=== PATIENT | male | born 1980 | race Caucasian/White ===

== ENCOUNTER 2016-10-24 11:49 | Emergency (ER) | payer OTHER ==
[~2016-10-24] VITALS: Ht 154.9 cm; Wt 72.6 kg
[~2016-10-24 11:49] MED LIST: CLON0.5T3 PO; HYDR-3419 PO; POTA1080 PO; QUET-205 PO
[2016-10-24 11:51] VITALS: TEMP 36.7; Ht 154.9 cm; Wt 72.6 kg
[2016-10-24] MEDS ORDERED: OXCA300T2 PO (11:54)
[2016-10-24] MEDS ORDERED: CGN1 PO (11:54)
[2016-10-24] MEDS ORDERED: QUET1TAB32 PO (11:59)
[2016-10-24] MEDS ORDERED: FLUV25TA2 PO (11:59)
[2016-10-24] MEDS ORDERED: ARIP30TA3 PO (11:59)
[2016-10-24] MEDS ORDERED: CLR10 PO (11:59)
[2016-10-24] MEDS ORDERED: PANT40TA PO (12:41)
[2016-10-24 12:48] LABS: BASO % 0.1 %; BASO ABS # 0.01 K/uL (0-0.2); COMPLETE YES; EOS % 0.1 %; IG% 0.2 %; LYMPH % 13.3 %; LYMPH ABS # 1.61 K/uL (1.2-3.4); MEAN CELL VOLUME 88.7 fL (80-100); MEAN CORPUSCULAR HEMOGLOBIN 31.6 pg (25-34); MEAN CORPUSCULAR HGB CONC 35.6 g/dl (32-36); MEAN PLATELET VOLUME 9.8 fL (7.4-10.4); MONO % 6.8 %; NEUT % 79.5 %; PLATELET COUNT 160 K/uL (130-400); RED BLOOD COUNT 4.62 M/uL (4.7-6.1); WHITE BLOOD COUNT 12.13 K/uL (4.8-10.8)
[2016-10-24 12:56] LABS: BUN/CREATININE RATIO 9.5 (10-20); CALCIUM 9.8 mg/dl (8.5-10.1); CREATININE 0.84 mg/dl (0.60-1.40); POTASSIUM 4.1 mmol/L (3.5-5.1)
[2016-10-24 12:59] LABS: ALB/GLOB RATIO 1.2 (0.9-2)
[2016-10-24] MEDS ORDERED: SODIUM CHLORIDE 0.9% 500ML 500 ML IV STA (13:10)
[2016-10-24] MEDS ORDERED: AMPICILLIN/SULBACTAM SOD INJ 3,000 MG in SODIUM CHLORIDE 0.9% 100ML 100 ML IV ONE (13:15)
[2016-10-24] MEDS ORDERED: OPTIRAY 320 IV PRN (13:15)
--- NOTE | 2016-10-24 14:23 | DIAGNOSTIC IMAGING REPORT ---
CT SOFT TISSUE NECK WITH CT DOSE: 564.63 mGy.cm CLINICAL HISTORY: Right-sided facial pain and swelling. Recent wisdom tooth extraction TECHNIQUE: Helical images were acquired during intravenous administration of 93 cc of Optiray 320. COMPARISON STUDY: None. FINDINGS: The visualized portions of the lung apices are unremarkable. No thyroid masses are visualized. No salivary gland masses are visualized. There are no pathologically enlarged cervical lymph nodes. No necrotic nodes are evident. There is a 2.5 cm fluid collection within the soft tissues lateral to the right maxilla. There is infiltration of the surrounding soft tissues and fat. There is an overlying cutaneous edema. The findings are consistent with an abscess. There is partial opacification of the right maxillary sinus. There is a defect within the posterior lateral wall of the right maxillary sinus. There is a radiopaque density within the right maxillary sinus, possibly representing a bone fragment. Several empty tooth sockets are visualized. There is no evidence of airway compromise. No mucosal space masses are visualized. IMPRESSION: 1. Extensive inflammatory process within the soft tissues lateral to the right maxilla. There is a 2.5 cm abscess present. In addition, there is partial opacification the right maxillary sinus. There is a bone fragment within the right maxillary sinus, and there is a defect involving the posterior lateral wall the right maxillary sinus. Oral surgical consultation is recommended. 2. No evidence of airway compromise. Electronically signed by: Papito Herrera M.D. 10/24/2016 2:21 PM Dictated Date/Time: 10/24/2016 2:10 PM
[2016-10-24] MEDS ORDERED: AMOX875T PO (15:39)
--- NOTE | 2016-10-24 15:40 | EMERGENCY ROOM VISIT NOTE ---
History First contact with patient: 13:00 Chief Complaint: FACIAL PAIN/INJURY Stated Complaint: SWOLLEN FACE, POSSIBLE ABSCESS History of Present Illness The patient is a 36 year old male who presents to the Emergency Department by private vehicle with his family and second worker for evaluation of his RIGHT-sided facial pain and swelling. The patient had his 4 with the teeth extracted on September [address] [place] [address] Robles. He had a follow-up appointment on October 06. He is had no complications since. He was having no issues until awaking this morning with RIGHT-sided facial swelling. He was brought to the emergency Department for further evaluation and treatment. The patient denies any pain rating his discomfort a 0/10. There is been no fevers, chills, headaches, nausea, or vomiting. He is not a diabetic. He is been provided nothing for his pain to this point. Review of Systems A complete 10-point Review of Systems was discussed with the patient, with pertinent positives and negatives listed in the History of Present Illness. All remaining Review of Systems questions can be considered negative unless otherwise specified. Past Medical/Surgical History Medical Problems: (1) ANXIETY STATE NOS (2) DEPRESSIVE DISORDER NEC (3) Gastroesophageal reflux disease (4) Kidney stone (5) OPPOSITIONAL DEFIANT DISORDER (6) Schizophrenia Social History Smoking Status: Never Smoker Smokeless Tobacco Use: No Alcohol Use: none Drug Use: none Marital Status: single Housing Status: other Occupation Status: disabled Current/Historical Medications Scheduled Amoxicillin & Pot Clavulanate (Augmentin 875-125 mg), 875 MG PO BID Aripiprazole (Abilify), 30 MG PO HS Benztropine Mesylate (Cogentin), 1 MG PO BID Fluvoxamine Maleate (Luvox), 25 MG PO HS Oxcarbazepine (Trileptal), 600 MG PO TID Pantoprazole (Protonix), 40 MG PO DAILY Quetiapine Fumarate (Seroquel), 50 MG PO HS Scheduled PRN Loratadine (Claritin), 10 MG PO DAILY PRN for ALLERGIC REACTION Allergies Coded Allergies: No Known Allergies (Unverified , 10/24/16) Physical Exam Vital Signs Date Time Temp Pulse Resp B/P Pulse Ox O2 Delivery O2 Flow Rate FiO2 10/24/16 15:59 101 18 133/87 96 Room Air 10/24/16 11:51 36.7 108 18 132/82 96 Room Air Pain Rating (0-10): 0 Physical Exam VITAL SIGNS - Vital signs and nursing notes were reviewed. GENERAL - 36-year-old male appearing his stated age who is in no acute distress. Communicates well with provider and answers questions appropriately. HEAD - Normocephalic, Atraumatic. No Walker's Sign or Raccoon's Eyes. No depressed skull fractures palpable. EYES - PERRL with EOMI bilaterally. EARS - No deformities of external structures noted on gross examination bilaterally. No pain elicited with palpation of the tragus bilaterally. External auditory canals without discharge or otorrhea. Tympanic membranes pearly mandujano without retraction or bulging. No fluid or purulent material visualized behind the TM. NOSE - Midline and without cyanosis. No epistaxis or purulent drainage noted. Septum midline without deviation or septal hematoma noted. MOUTH/OROPHARYNX - Moderate RIGHT sided facial swelling. Moderately tender to palpation. No erythema or warmth to touch. No fluctuance to palpation. Without perioral cyanosis. Buccal mucosa pink and moist and without leukoplakia. Tongue midline with equal elevation of palate bilaterally. No tonsillar hypertrophy, erythema, or exudates noted. No dental caries. No sublingual edema. NECK - Neck with FROM. Supple to palpation. No lymphadenopathy noted. No nuchal rigidity. Medical Decision & Procedures ER Provider Diagnostic Interpretation: Radiological imaging and reports were reviewed by myself. Radiologist's Interpretation as follows: CT SOFT TISSUE NECK WITH CT DOSE: 564.63 mGy.cm CLINICAL HISTORY: Right-sided facial pain and swelling. Recent wisdom tooth extraction TECHNIQUE: Helical images were acquired during intravenous administration of 93 cc of Optiray 320. COMPARISON STUDY: None. FINDINGS: The visualized portions of the lung apices are unremarkable. No thyroid masses are visualized. No salivary gland masses are visualized. There are no pathologically enlarged cervical lymph nodes. No necrotic nodes are evident. There is a 2.5 cm fluid collection within the soft tissues lateral to the right maxilla. There is infiltration of the surrounding soft tissues and fat. There is an overlying cutaneous edema. The findings are consistent with an abscess. There is partial opacification of the right maxillary sinus. There is a defect within the posterior lateral wall of the right maxillary sinus. There is a radiopaque density within the right maxillary sinus, possibly representing a bone fragment. Several empty tooth sockets are visualized. There is no evidence of airway compromise. No mucosal space masses are visualized. IMPRESSION: 1. Extensive inflammatory process within the soft tissues lateral to the right maxilla. There is a 2.5 cm abscess present. In addition, there is partial opacification the right maxillary sinus. There is a bone fragment within the right maxillary sinus, and there is a defect involving the posterior lateral wall the right maxillary sinus. Oral surgical consultation is recommended. 2. No evidence of airway compromise. Laboratory Results 10/24/16 12:30 Red Blood Count 4.62, Mean Corpuscular Volume 88.7, Mean Corpuscular Hemoglobin 31.6, Mean Corpuscular Hemoglobin Concent 35.6, Mean Platelet Volume 9.8, Neutrophils (%) (Auto) 79.5, Lymphocytes (%) (Auto) 13.3, Monocytes (%) (Auto) 6.8, Eosinophils (%) (Auto) 0.1, Basophils (%) (Auto) 0.1, Neutrophils # (Auto) 9.66, Lymphocytes # (Auto) 1.61, Monocytes # (Auto) 0.82, Eosinophils # (Auto) 0.01, Basophils # (Auto) 0.01 10/24/16 12:30 Test 10/24/16 12:30 White Blood Count 12.13 K/uL (4.8-10.8) Red Blood Count 4.62 M/uL (4.7-6.1) Hemoglobin 14.6 g/dL (14.0-18.0) Hematocrit 41.0 % (42-52) Mean Corpuscular Volume 88.7 fL (80-100) Mean Corpuscular Hemoglobin 31.6 pg (25-34) Mean Corpuscular Hemoglobin Concent 35.6 g/dl (32-36) Platelet Count 160 K/uL (130-400) Mean Platelet Volume 9.8 fL (7.4-10.4) Neutrophils (%) (Auto) 79.5 % Lymphocytes (%) (Auto) 13.3 % Monocytes (%) (Auto) 6.8 % Eosinophils (%) (Auto) 0.1 % Basophils (%) (Auto) 0.1 % Neutrophils # (Auto) 9.66 K/uL (1.4-6.5) Lymphocytes # (Auto) 1.61 K/uL (1.2-3.4) Monocytes # (Auto) 0.82 K/uL (0.11-0.59) Eosinophils # (Auto) 0.01 K/uL (0-0.5) Basophils # (Auto) 0.01 K/uL (0-0.2) RDW Standard Deviation 39.1 fL (36.4-46.3) RDW Coefficient of Variation 12.2 % (11.5-14.5) Immature Granulocyte % (Auto) 0.2 % Immature Granulocyte # (Auto) 0.02 K/uL (0.00-0.02) Anion Gap 10.0 mmol/L (3-11) Est Creatinine Clear Calc Drug Dose 105.9 ml/min Estimated GFR () 132.4 Estimated GFR (Non- 114.2 BUN/Creatinine Ratio 9.5 (10-20) Calcium Level 9.8 mg/dl (8.5-10.1) Total Bilirubin 0.5 mg/dl (0.2-1) Aspartate Amino Transf (AST/SGOT) 19 U/L (15-37) Alanine Aminotransferase (ALT/SGPT) 36 U/L (12-78) Alkaline Phosphatase 143 U/L (45-117) Total Protein 7.9 gm/dl (6.4-8.2) Albumin 4.3 gm/dl (3.4-5.0) Globulin 3.6 gm/dl (2.5-4.0) Albumin/Globulin Ratio 1.2 (0.9-2) Medications Administered Medications (Trade) Dose Ordered Sig/Nataliya Route Start Time Stop Time Status Last Admin Dose Admin Ampicillin Sodium/ Sulbactam Sodium 3000 mg/Sodium Chloride 108 ml @ 200 mls/hr ONE ONCE IV 10/24/16 13:15 10/24/16 13:47 DC 10/24/16 13:46 200 MLS/HR Sodium Chloride (Nss 500ml) 500 ml @ 999 mls/hr Q31M STAT IV 10/24/16 13:10 10/24/16 13:40 DC 10/24/16 13:45 999 MLS/HR ED Course Patient was seen and evaluated by myself. Labs were drawn, saline lock in place. Patient declines anything for pain. Laboratory results demonstrated mild leukocytosis. There is no significant anemia or bandemia. The patient has no significant electrolyte abnormalities. CT of the soft tissues of the neck was obtained for evaluation of the facial swelling. Patient was treated with 3 g of IV Unasyn and a 500 mL normal saline bolus. Imaging results as above. Laboratory results and imaging studies were reviewed with the patient who acknowledges understanding. I did discuss the case with Dr. Alanis of maxillofacial surgery. He suggests continuing the antibiotics aggressively and following up with the patient's oral surgeon this week. This information was relayed to the family and patient's care provider who acknowledges understanding. They're educated on worrisome symptoms for return visit to the emergency department. Patient discharged home afebrile and in good condition. Medical Decision Given the patient's presentation and stated complaints, I did elect to perform the above-mentioned workup. The patient presents today with facial swelling to the RIGHT-sided face. He has palpable pain. He has no fever. He has mild psychosis. CT concerning for facial abscess which is obvious on physical exam. He does have some disruption of the sinuses which is consistent with his recent dental extraction. He is no meningeal findings. His exam is otherwise unremarkable. He is not an overt amount of pain. The patient will be placed on Augmentin for home. He will follow-up with his oral surgeon. He will return sooner for any changing or worsening symptoms. Patient discharged home afebrile and in good condition. In the evaluation and treatment of this patient, the following differential diagnoses were considered: Periapical Abscess, Osteonecrosis of the Jaw, Dental Fracture, Dental Caries, Carlos Alberto's Angina, Vincent's Angina, Facial Cellulitis. Impression Primary Impression: Facial abscess Departure Information Dispostion Home / Self-Care Condition GOOD Prescriptions Amoxicillin & Pot Clavulanate (Augmentin 875-125 mg) 1 Tab Tab 875 MG PO BID for 10 Days, #20 TAB Prov: Sathya Echevarria PA-C 10/24/16 Referrals ,Elijah Ortiz M.D. (PCP) Patient Instructions ED Dental Abscess Facial Cellulitis, My [facility] Additional Instructions You have been treated in the Emergency Department for a RIGHT Sided Facial Abscess. He will need to follow-up with his oral surgeon in the next 48 hours for recheck and definitive management. Please return sooner if symptoms worsen in this timeframe. You were prescribed Augmentin to be taken as prescribed. This is an antibiotic. All antibiotics have the potential to cause diarrhea. Stop this medication and contact a medical provider if you were to develop any significant adverse side effects including: wheezing, shortness of breath, passing out, vomiting, or a diffuse rash. Always take antibiotics as directed and COMPLETE the ENTIRE course regardless of the improvement of your symptoms. For pain control, you can use the following [id number] medicines (if >12 yo): - Regular strength (325mg/tab) Tylenol (acetaminophen) 2 tabs every 4-6 hours as needed. Do not exceed 12 tablets in a 24 hour period. Avoid taking more than 4 grams (4000 mg) of Tylenol per day. This includes any other sources of acetaminophen you may take on a regular basis. - Regular strength (200 mg/tab) Advil (ibuprofen) 1-2 tabs every 4-6 hours as needed. Do not exceed a dose of 3200 mg per day. Refrain from smoking cigarettes or using chewing tobacco until you have been evaluated by your dentist. Keeping beverages lukewarm and consuming soft foods can decrease your pain. Warm compresses over the affected area may offer some relief. Return to the emergency department if you develop the following symptoms despite treatment course outlined above: fever, intractable pain, increased redness, swelling, or purulent discharge.
[2016-10-24 15:59] VITALS: BP 133/87; PULSE 101; O2SAT 96
== END 2016-10-24 16:05 | disposition home or self-care (01) ==
LOC: C.EDB 11:50 → C.EDD 16:05
DX: L02.01 Cutaneous abscess of face (principal); F41.9 Anxiety disorder, unspecified; F32.9 Major depressive disorder, single episode, unspecified; K21.9 Gastro-esophageal reflux disease without esophagitis; Z87.442 Personal history of urinary calculi; F91.3 Oppositional defiant disorder; F20.9 Schizophrenia, unspecified; Z79.899 Other long term (current) drug therapy

== ENCOUNTER → 2017-05-04 | Outpatient (CLI) | payer OTHER ==
[~2017-05-04] MED LIST changes: +ARIP30TA3 PO; +CGN1 PO; -CLON0.5T3 PO; +CLR10 PO; +FLUV25TA2 PO; -HYDR-3419 PO; +OXCA300T2 PO; +PANT40TA PO; -POTA1080 PO; -QUET-205 PO; +QUET1TAB32 PO
--- NOTE | 2017-05-04 10:31 | DIAGNOSTIC IMAGING REPORT ---
KUB CLINICAL HISTORY: Nephrolithiasis. Right flank pain. FINDINGS: 2 AP supine abdominal radiographs are compared to study dated 02/03/2016. There is a nonobstructed abdominal bowel gas pattern. There are numerous bilateral nonobstructing renal calculi. A 4 mm calculus is questioned in the right ureter seen on one view only, located chest with right transverse process of L4. Pelvic phleboliths are observed. The bony structures appear intact noting thoracolumbar scoliosis. The lung bases are clear as imaged. IMPRESSION: 1. There are bilateral nonobstructing renal calculi. 2. Question a 4 mm right ureteral calculus located just below the right transverse process of L4. Electronically signed by: Carmelo Deleon M.D. 05/04/2017 10:29 AM Dictated Date/Time: 05/04/2017 10:27 AM
== END | disposition home or self-care (01) ==
LOC: C.RAD 10:07
PROVIDERS: ATTEND Urology
DX: N20.0 Calculus of kidney (principal); R10.9 Unspecified abdominal pain

== ENCOUNTER → 2017-05-22 | Outpatient (CLI) | payer OTHER ==
[2017-05-22 12:42] LABS: HEMATOCRIT 44.2 % (42-52); MEAN CELL VOLUME 88.6 fL (80-100); MEAN CORPUSCULAR HEMOGLOBIN 31.3 pg (25-34); MEAN CORPUSCULAR HGB CONC 35.3 g/dl (32-36); MEAN PLATELET VOLUME 9.7 fL (7.4-10.4); PLATELET COUNT 182 K/uL (130-400); RED BLOOD COUNT 4.99 M/uL (4.7-6.1); WHITE BLOOD COUNT 7.86 K/uL (4.8-10.8)
[2017-05-22 12:56] LABS: ALT/SGPT 53 U/L (12-78); BLOOD UREA NITROGEN 11 mg/dl (7-18); BUN/CREATININE RATIO 12.7 (10-20); CALCIUM 9.1 mg/dl (8.5-10.1); CARBON DIOXIDE 29 mmol/L (21-32); CHLORIDE 101 mmol/L (98-107); CHOLESTEROL 181 mg/dl (0-200); CREATININE 0.85 mg/dl (0.60-1.40); GLUCOSE 94 mg/dl (70-99); SODIUM 136 mmol/L (136-145); TRIGLYCERIDES 64 mg/dl (0-150); URIC ACID 4.9 mg/dl (2.6-7.2); VERY LOW DENSITY LIPOPROT CALC 13 mg/dl
[2017-05-22 13:07] LABS: ALB/GLOB RATIO 1.1 (0.9-2); ALKALINE PHOSPHATASE 115 U/L (45-117); AST/SGOT 28 U/L (15-37); CHOLESTEROL/HDL RATIO 3.4; HDL CHOLESTEROL 53 mg/dl; LDL CHOLESTEROL CALCULATED 115 mg/dl
--- NOTE | 2017-06-01 13:30 | CODING QUERY MEDICAL NECESSITY ---
SUPPORTING DIAGNOSIS NEEDED A supporting diagnosis is required for the test/procedure performed on this patient in order for us to be reimbursed by the patient's insurance. Please provide a supporting diagnosis for the following test/procedure listed below next to the test name along with your signature. *If there is no additional diagnosis for this patient that would support the following test/procedure please document that below next to the test/procedure. Test(s)/Procedure(s) that require a supporting diagnosis: * VITAMIN D, 25-HYDROXY DIAGNOSIS: Provider Signature: Date: Thank you Zenobia Dubon [employer] Information Management Once completed, please kindly fax back to [phone] For questions please call [phone]
== END | disposition home or self-care (01) ==
LOC: C.LAB1850 10:09
PROVIDERS: ATTEND Internal Medicine
DX: N20.0 Calculus of kidney (principal); I10 Essential (primary) hypertension; R31.9 Hematuria, unspecified; E78.5 Hyperlipidemia, unspecified; G47.00 Insomnia, unspecified; Z87.19 Personal history of other diseases of the digestive system; E55.9 Vitamin D deficiency, unspecified

== ENCOUNTER → 2017-05-24 | Outpatient (CLI) | payer OTHER ==
[2017-05-24 15:45] LABS: URINE APPEARANCE CLEAR (CLEAR); URINE BILIRUBIN NEG (NEG); URINE COLOR YELLOW; URINE EPITHELIAL CELL AUTO 0-5 /lpf (0-5); URINE NITRITE NEG (NEG); URINE SPECIFIC GRAVITY 1.015 (1.000-1.030); UROBILINOGEN NEG (NEG)
[2017-05-24 15:48] LABS: MANUAL MICROSCOPIC REQUIRED? NO; REVIEW REQ? NO
[2017-05-24 16:06] LABS: URINE PROTIEN/CREAT RATIO 0.5 (0-0.2); URINE TOTAL PROTEIN 13.8 mg/dl (0-11.9)
== END | disposition home or self-care (01) ==
LOC: C.LABSPEC 13:34
PROVIDERS: ATTEND Internal Medicine Nephrology
DX: N20.0 Calculus of kidney (principal); R31.9 Hematuria, unspecified; I10 Essential (primary) hypertension

== ENCOUNTER → 2018-01-18 | Outpatient (CLI) | payer OTHER ==
[~2018-01-18] MED LIST changes: +BENZ-89 PO; -CGN1 PO
[2018-01-18 14:38] LABS: HEMATOCRIT 44.6 % (42-52); HEMOGLOBIN 15.6 g/dL (14.0-18.0); MEAN CELL VOLUME 89.6 fL (80-100); MEAN CORPUSCULAR HEMOGLOBIN 31.3 pg (25-34); MEAN PLATELET VOLUME 9.9 fL (7.4-10.4); PLATELET COUNT 211 K/uL (130-400); RED CELL DISTRIBUTION WIDTH CV 12.6 % (11.5-14.5); RED CELL DISTRIBUTION WIDTH SD 40.6 fL (36.4-46.3); WHITE BLOOD COUNT 8.01 K/uL (4.8-10.8)
[2018-01-18 14:54] LABS: ALBUMIN 4.3 gm/dl (3.4-5.0); ALT/SGPT 37 U/L (12-78); AST/SGOT 21 U/L (15-37); BLOOD UREA NITROGEN 11 mg/dl (7-18); CALCIUM 9.7 mg/dl (8.5-10.1); CARBON DIOXIDE 29 mmol/L (21-32); CREATININE 0.92 mg/dl (0.60-1.40); GLUCOSE 101 mg/dl (70-99); POTASSIUM 4.2 mmol/L (3.5-5.1); SODIUM 136 mmol/L (136-145); URIC ACID 6.2 mg/dl (2.6-7.2)
[2018-01-18 14:58] LABS: ALKALINE PHOSPHATASE 114 U/L (45-117); TOTAL PROTEIN 8.1 gm/dl (6.4-8.2)
== END | disposition home or self-care (01) ==
LOC: C.LAB1850 12:44
PROVIDERS: ATTEND Internal Medicine Nephrology
DX: N20.0 Calculus of kidney (principal); I10 Essential (primary) hypertension

== ENCOUNTER 2020-08-09 01:22 | Inpatient (IN) ==
[2020-08-09 02:01] LABS: Basophils # (auto) 0.03 K/uL (0-0.2); Basophils % (auto) 0.3 %; Eosinophils # (auto) 0.12 K/uL (0-0.5); Eosinophils % (auto) 1.2 %; Hematocrit (blood only) 40.3 % (42-52); Hemoglobin 13.7 g/dL (14.0-18.0); Immature Granulocytes # (auto) 0.06 K/uL (0.00-0.02); Immature Granulocytes % (auto) 0.6 %; Lymphocytes # (auto) 3.34 K/uL (1.2-3.4); Mean Corpuscular Hemoglobin 30.7 pg (25-34); Mean Corpuscular Volume 90.4 fL (80-100); Mean Platelet Volume 9.3 fL (7.4-10.4); Monocytes # (auto) 0.73 K/uL (0.11-0.59); Neutrophils # (auto) 6.15 K/uL (1.4-6.5); Neutrophils % (auto) 58.9 %; Platelet Count 244 K/uL (130-400); RDW Coefficient of Variation 12.9 % (11.5-14.5); RDW Standard Deviation 42.1 fL (36.4-46.3); Red Blood Count 4.46 M/uL (4.7-6.1); White Blood Count 10.43 K/uL (4.8-10.8)
[2020-08-09] MEDS ORDERED: SODIUM CHLORIDE 0.9% 500 ML IV ONE (02:12)
[2020-08-09 02:14] LABS: Partial Thromboplastin Ratio 0.9; Partial Thromboplastin Time 25.4 Seconds (21.0-31.0); Prothrombin Time 10.4 Seconds (9.0-12.0)
[2020-08-09 02:21] LABS: HCO3 ABG 28 mmol/L (19-24); PCO2 ABG 48 mmHg (35-46); PO2 ABG 93 mmHg (80-95); pH ABG 7.38 (7.35-7.45)
[2020-08-09 02:22] LABS: Allen Test Pos (Pos)
[2020-08-09 02:29] LABS: Alanine Aminotransferase 36 U/L (12-78); Albumin Level 3.6 gm/dl (3.4-5.0); Aspartate Aminotransferase 19 U/L (15-37); BUN Creatinine Ratio 12.3 (10-20); Blood Urea Nitrogen 11 mg/dl (7-18); Carbon Dioxide 31 mmol/L (21-32); Chloride 99 mmol/L (98-107); Creatinine Clr Calc Pharmacy 114.9 ml/min; Est GFR (African American) 120.3; Est GFR (Non-African American) 103.8; Glucose 117 mg/dl (70-99); Magnesium 1.9 mg/dl (1.8-2.4); Potassium 3.8 mmol/L (3.5-5.1); Sodium 134 mmol/L (136-145)
[2020-08-09 02:34] LABS: Albumin Globulin Ratio 0.9 (0.9-2); Alkaline Phosphatase 150 U/L (45-117); Bilirubin,Total 0.3 mg/dl (0.2-1); Globulin 4.1 gm/dl (2.5-4.0); Total Protein 7.7 gm/dl (6.4-8.2); Troponin I < 0.015 ng/ml (0-0.045)
[2020-08-09] MEDS ORDERED: OPTIRAY 320 125ml IV ONE (02:51)
[2020-08-09] MEDS ORDERED: PIPERACILLIN/TAZOBACTAM 4.5 GM/120 ML BAG IV ONE (03:21)
[2020-08-09] MEDS ORDERED: PIPERACILL/TAZOBAC CONSULT ACTIVE PRN ×2 (03:21→07:07)
--- NOTE | 2020-08-09 03:29 | Emergency Department Note ---
Impression & Plan Acute respiratory failure, Aspiration pneumonia, Altered mental status ED Provider Note NAME: ANNAMARIE MEANS AGE: 40 SEX: M ARRIVES VIA: Walk-In INFORMANT: [Patient][, the mother] ED PROVIDER(S): Felecia Trujillo DO CHIEF COMPLAINT: Fall PLAN: [facility]: Stable MEDICAL DECISION MAKING: This is a 40-year-old male patient who awoke from sleep tonight and suffered a fall. The mother found him with an altered mental status. He then fell again. He appeared to be in some respiratory distress. CT scan of the brain was negative. CT scan of the chest however shows some debris within the trachea and left right main stem of the bronchus concerning for aspiration. There is also a questionable consolidative process in the right lower lobe of the lung. The patient is tachypneic and tachycardic and has a low-grade fever. He was treated with IV Zosyn. [facility] The patient will be admitted to the ICU. The patient continued to have decline in his mental status and appeared to be tiring out with regards to his respiratory status. The decision was made to secure his airway. Because of his BMI and body habitus, department of anesthesiology was contacted. Dr. Treadwell came to the emergency department to perform the intubation. Tube placement was confirmed and the patient remained hemodynamically stable and was admitted to the ICU. Triage Nursing notes reviewed and agree them. [Additional history obtained from] patient's mother [Prior medical records reviewed] Vital Signs: reviewed and remarkable for tachycardia and hypertension Differential diagnosis: Head injury, acute respiratory failure, hypercapnia, COVID-19, aspiration pneumonia, intracranial hemorrhage, acute CVA, hypoglycemia, hyperglycemia ER treatment provided: IV normal saline, IV Zosyn Diagnostics interpreted by me: ECG: Sinus tachycardia at [address] segment depression in the inferior leads which is slightly concerning for ischemia. There is a poor baseline and some artifact. Cardiac Monitoring: Sinus tachycardia at 141 Laboratory studies: [See below] Imaging studies: Chest x-ray: Cardiomegaly with pulmonary vascular congestion as per my interpretation CTA chest: Examination limited by motion artifact. There appears to be some debris's layering within the distal trachea and left and right mainstem bronchi suggesting aspiration. Mild patchy opacities within the dependent aspect of the right lower lobe may represent atelectasis or consolidation. Great vessels are within normal limits. No pleural effusion or pneumothorax. CT head: No acute intracranial abnormality. No acute intracranial hemorrhage, extra-axial fluid collection, mass or mass-effect. No hydrocephalus. Post intubation chest x-ray: Endotracheal tube approximately 2-3 cm above the josé. Bilateral airspace opacities present. Consultation(s): [none] HPI: 40/M arrives for evaluation of altered mental status. The history was obtained from the mother who is at the bedside. Mother explains that the patient went to bed around 8 PM and awoke approximately 1 hour prior to arrival in the emergency department when she heard him fall in the hallway. They helped him up from the floor and took him into the bathroom. He sat on the toilet and appeared to be confused. The patient did strike the left front part of his forehead during that fall. The patient then fell off the toilet. He was helped up off of the ground again and back to the bedroom where they assisted him getting dressed today could bring him to the emergency department. The mother explains that the patient has been in his usual state of health until this time and has never had an episode like this in the past. The family was able to load the patient into the car to bring him here to the hospital. She states that he slept in the car while traveling to the hospital and appeared to have some snoring respirations in route but this is not unusual for him as he suffers from sleep apnea. ROS: See above HPI for pertinent positives & negatives. A total of [10] systems reviewed and were otherwise negative. PAST MEDICAL HISTORY:[See Below] PAST SURGICAL HISTORY:[See Below] FAMILY HISTORY:[See Below] SOCIAL HISTORY:[See Below] HOME MEDICATIONS:See list ALLERGIES:See list VITALS:[See Below] PHYSICAL EXAMINATION: General: This is an obese male patient who appears tachypneic on physical exam and in mild respiratory distress. HEENT: Head - normocephalic with an abrasion to the left forehead pupils are equal, round, and reactive to light. Extraocular eye muscles are intact and sclera are anicteric. Ears - bilaterally patent canals with noninjected tympanic membranes and no evidence of hemotympanum. Nose - moist nasal mucosa without discharge. Mouth - moist buccal mucosa. Oropharynx is nonerythematous and there is no tonsillar exudate or edema noted. Neck: Supple Heart: Heart sounds are extremely distant secondary to body habitus tachycardic rate and regular rhythm. There is a normal S1 and S2 with no murmurs, clicks, or gallops appreciated. Lungs: Diminished breath sounds in all lung gomez Abdomen: Soft, completely nontender, nondistended, with good bowel sounds. There are no palpable pulsatile masses or hepatosplenomegaly. There is no guarding, rigidity, or rebound noted. Extremities: No evidence of cyanosis, clubbing, or edema. There are easily palpable peripheral pulses. Neuro:The patient is obtunded and difficult to arouse on physical exam. He will occasionally follow commands like squeezing hands. He was occasionally able to answer some simple questions with yes and no and identify who his mother was. ED COURSE:0130: The patient was evaluated in room A3. A complete history and physical was performed. A septic protocol was performed. A twelve-lead EKG was obtained. An order was placed for continuous cardiac monitoring. The patient was in a sinus tachycardia at 141. A portable chest x-ray was performed. The patient went for CT scan of the brain. He then went for CT scan of the chest. He was swabbed for Covid. He was placed in isolation. Patient was started on IV Zosyn for evidence of aspiration pneumonia on CT scan. I discussed the case with Dr. De La Cruz. His respiratory status continued to decline. I attempted to visualize the patient's airway with the glide scope without sedation and was unsuccessful. I kept the mother abreast of the situation. I discussed the case with Dr. Treadwell from anesthesiology due to the patient's large body habitus and large neck. He was able to get the patient intubated successfully. Post intubation x-ray was performed. The patient will be admitted to the ICU. I have personally spent greater than 110 minutes of critical care time in the direct management of this patient. This includes bedside care, interpretation of diagnostic studies, and testing, discussion with consultants, patient, and family members, and other required patient management activities. This 110 minutes is in excess of all separately billable procedures. Felecia Trujillo DO Past Med/Surg History Medical History (Updated 08/09/20 @ 23:23 by Felecia Trujillo DO) Abdominal pain Anxiety state, unspecified (03/19/13) Bipolar depression Esophageal dysfunction Gastroesophageal reflux disease (02/12/13) History of ulcerative colitis Insomnia Intermittent explosive disorder Kidney stone (03/19/13) Lactose intolerance Learning disabilities OCD (obsessive compulsive disorder) Oppositional defiant disorder (03/19/13) Psychosis Scoliosis Spina bifida occulta Tachycardia Surgical History Surgical history unknown Family History Father Hypertension Grandmother (Maternal) Breast cancer Other Impaired fasting glucose Kidney stone Denies family history of Colon cancer Ovarian cancer Prostate cancer Myocardial infarction Social History Smoking Status: Never smoker Do You Dip or Chew Tobacco: No; Hx Alcohol Use: No Hx Substance Use: No Preferred Language: Brazilian Communication Ability: Unable Communication Ability Comment: unknown - sedated Visual Impairment: No Limitations 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: Normal 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 Beliefs That Will Affect Care: None marital status: Single Current Living Situation: Other Current Living Situation Comment: [facility] current occupational status: unemployed Other Information That Helps Us Care for You: No Feels Safe at Home: Yes Physical Activity Frequency: Does not Exercise Seatbelt Use: always Assistive Devices: Oxygen - Continuous Assistive Devices Comment: unknown - sedated Allergies Allergies Allergy/AdvReac Type Severity Reaction Status Date / Time lactose Allergy Unknown Unknown Verified 08/09/20 02:21 pollen extracts Allergy Unknown Unknown Verified 08/09/20 02:21 Home Meds Home Medications Medication Instructions Recorded Confirmed aripiprazole 30 mg tablet 30 mg PO HS 04/06/19 08/09/20 benztropine 1 mg tablet 1 mg PO TID 04/06/19 08/09/20 melatonin 3 mg tablet 3 mg PO HS 04/06/19 08/09/20 multivitamin 1 tab PO DAILY 04/06/19 08/09/20 oxcarbazepine 600 mg tablet 600 mg PO TID tab 07/23/19 08/09/20 sucralfate 1 gram tablet 1 g PO TID tab 05/28/20 08/09/20 docusate sodium [Stool Softener] 100 mg PO DAILY PRN 08/09/20 08/09/20 fluvoxamine 50 mg PO HS 08/09/20 08/09/20 hydrochlorothiazide 12.5 mg PO QAM 08/09/20 08/09/20 lisinopril 10 mg PO DAILY 08/09/20 08/09/20 ondansetron HCl [Zofran] 8 mg PO Q8H PRN 08/09/20 08/09/20 Previous Rx's Medication Instructions Recorded acetaminophen 325 mg capsule 325 mg PO Q8H PRN #90 cap 11/12/19 CPAP Machine #1 ea 03/30/20 lancets 33 gauge #100 ea 05/13/20 omeprazole 40 mg capsule,delayed 40 mg PO DAILY #90 cap 05/18/20 release blood sugar diagnostic #50 ea 05/19/20 loperamide 2 mg capsule 2 mg PO Q4H PRN #60 cap 05/22/20 sitagliptin 25 mg tablet 25 mg PO DAILY #90 tab 07/15/20 Results & Data (ED) Vital Signs Vital Signs - 24 hr 08/09/20 01:28 08/09/20 01:43 08/09/20 01:49 Temperature 37.4 C 37.7 C H Temperature Source Oral Rectal Pulse Rate 133 H Pulse Rate [Finger] Respiratory Rate 32 H Respiratory Effort / Characteristics Respiratory Depth Blood Pressure 138/76 Blood Pressure [Right Arm] Blood Pressure Mean 96 Blood Pressure Mean [Right Arm] Blood Pressure Position [Right Arm] Pulse Oximetry 88 L 97 Oxygen Delivery Method Room Air Nasal Cannula Oxygen Flow Rate 3 Sepsis Recent Fever Within 48 Hours No Sepsis New/Unexplained Change in Mental Status Yes Sepsis Action Taken by Nursing Physician Notified 08/09/20 01:55 08/09/20 02:01 08/09/20 02:15 Temperature Temperature Source Pulse Rate Pulse Rate [Finger] 140 H 136 H Respiratory Rate 32 H 32 H Respiratory Effort / Characteristics Accessory Muscle Use Labored Labored Respiratory Depth Blood Pressure Blood Pressure [Right Arm] 118/84 135/104 H Blood Pressure Mean Blood Pressure Mean [Right Arm] 95 114 Blood Pressure Position [Right Arm] Pulse Oximetry 97 97 96 Oxygen Delivery Method Nasal Cannula Nasal Cannula Oxygen Flow Rate 3 3 Sepsis Recent Fever Within 48 Hours Sepsis New/Unexplained Change in Mental Status Sepsis Action Taken by Nursing 08/09/20 02:50 08/09/20 03:38 08/09/20 04:00 Temperature Temperature Source Pulse Rate Pulse Rate [Finger] 126 H 141 H 133 H Respiratory Rate 32 H 30 H 24 Respiratory Effort / Characteristics Spontaneous Accessory Muscle Use Grunting Labored Retracting Respiratory Depth Deep Normal Blood Pressure Blood Pressure [Right Arm] 143/102 H 132/102 H 107/69 Blood Pressure Mean Blood Pressure Mean [Right Arm] 115 112 81 Blood Pressure Position [Right Arm] Lying Pulse Oximetry 96 96 93 Oxygen Delivery Method Nasal Cannula Nasal Cannula Oxygen Flow Rate 4 Sepsis Recent Fever Within 48 Hours Sepsis New/Unexplained Change in Mental Status Sepsis Action Taken by Nursing 08/09/20 04:15 Temperature Temperature Source Pulse Rate Pulse Rate [Finger] 126 H Respiratory Rate 30 H Respiratory Effort / Characteristics Respiratory Depth Blood Pressure Blood Pressure [Right Arm] 104/70 Blood Pressure Mean Blood Pressure Mean [Right Arm] 81 Blood Pressure Position [Right Arm] Pulse Oximetry 94 Oxygen Delivery Method Nasal Cannula Oxygen Flow Rate 4 Sepsis Recent Fever Within 48 Hours Sepsis New/Unexplained Change in Mental Status Sepsis Action Taken by Nursing Laboratory Data Result diagrams: 08/10/20 04:48 08/10/20 04:48 Lab Results 08/09/20 08/09/20 08/09/20 Range/Units 01:30 01:40 01:40 WBC 10.43 (4.8-10.8) K/uL RBC 4.46 L (4.7-6.1) M/uL Hgb 13.7 L (14.0-18.0) g/dL Hct 40.3 L (42-52) % MCV 90.4 (80-100) fL MCH 30.7 (25-34) pg MCHC 34.0 (32-36) g/dL RDW Std Deviation 42.1 (36.4-46.3) fL RDW Coeff of [place] 12.9 (11.5-14.5) % Plt Count 244 (130-400) K/uL MPV 9.3 (7.4-10.4) fL Immature Gran % (Auto) 0.6 % Neut % (Auto) 58.9 % Lymph % (Auto) 32.0 % [place] % (Auto) 7.0 % Eos % (Auto) 1.2 % Baso % (Auto) 0.3 % Neut # (Auto) 6.15 (1.4-6.5) K/uL Lymph # (Auto) 3.34 (1.2-3.4) K/uL [place] # (Auto) 0.73 H (0.11-0.59) K/uL Eos # (Auto) 0.12 (0-0.5) K/uL Baso # (Auto) 0.03 (0-0.2) K/uL Immature Gran # (Auto) 0.06 H (0.00-0.02) K/uL PT 10.4 (9.0-12.0) Seconds INR 1.0 (0.9-1.1) APTT 25.4 (21.0-31.0) Seconds PTT Ratio 0.9 ABG pH (7.35-7.45) ABG pCO2 (35-46) mmHg ABG pO2 (80-95) mmHg ABG HCO3 (19-24) mmol/L ABG O2 Saturation (90-95) % ABG Base Excess (-9-1.8) mEq/L Stuart Test (Pos) Oxygen Given Sodium (136-145) mmol/L Potassium (3.5-5.1) mmol/L Chloride (98-107) mmol/L Carbon Dioxide (21-32) mmol/L Anion Gap (3-11) BUN (7-18) mg/dl Creatinine (0.6-1.4) mg/dl Est Cr Clr Drug Dosing ml/min Est GFR ( Amer) Est GFR (Non-Af Amer) BUN/Creatinine Ratio (10-20) Glucose (70-99) mg/dl POC Glucose 139 H (70-99) mg/dl Lactate (0.4-2.0) mmol/L Calcium (8.5-10.1) mg/dl Magnesium (1.8-2.4) mg/dl Total Bilirubin (0.2-1) mg/dl AST (15-37) U/L ALT (12-78) U/L Alkaline Phosphatase (45-117) U/L Troponin I (0-0.045) ng/ml Total Protein (6.4-8.2) gm/dl Albumin (3.4-5.0) gm/dl Globulin (2.5-4.0) gm/dl Albumin/Globulin Ratio (0.9-2) Urine Color Urine Appearance (Clear) Urine pH (4.5-7.5) Ur Specific [place] (1.000-1.030) Urine Protein (Negative) Urine Glucose (UA) (Negative) Urine Ketones (Negative) Urine Blood (Negative) Urine Nitrite (Negative) Urine Bilirubin (Negative) Urine Urobilinogen (Negative) Ur Leukocyte Esterase (Negative) COVID-19 Eval Order COVID-19 PCR (Negative) 08/09/20 08/09/20 08/09/20 Range/Units 01:40 01:40 01:50 WBC (4.8-10.8) K/uL RBC (4.7-6.1) M/uL Hgb (14.0-18.0) g/dL Hct (42-52) % MCV (80-100) fL MCH (25-34) pg MCHC (32-36) g/dL RDW Std Deviation (36.4-46.3) fL RDW Coeff of Chilo (11.5-14.5) % Plt Count (130-400) K/uL MPV (7.4-10.4) fL Immature Gran % (Auto) % Neut % (Auto) % Lymph % (Auto) % [place] % (Auto) % Eos % (Auto) % Baso % (Auto) % Neut # (Auto) (1.4-6.5) K/uL Lymph # (Auto) (1.2-3.4) K/uL [place] # (Auto) (0.11-0.59) K/uL Eos # (Auto) (0-0.5) K/uL Baso # (Auto) (0-0.2) K/uL Immature Gran # (Auto) (0.00-0.02) K/uL PT (9.0-12.0) Seconds INR (0.9-1.1) APTT (21.0-31.0) Seconds PTT Ratio ABG pH (7.35-7.45) ABG pCO2 (35-46) mmHg ABG pO2 (80-95) mmHg ABG HCO3 (19-24) mmol/L ABG O2 Saturation (90-95) % ABG Base Excess (-9-1.8) mEq/L Stuart Test (Pos) Oxygen Given Sodium 134 L (136-145) mmol/L Potassium 3.8 (3.5-5.1) mmol/L Chloride 99 (98-107) mmol/L Carbon Dioxide 31 (21-32) mmol/L Anion Gap 4.0 (3-11) BUN 11 (7-18) mg/dl Creatinine 0.93 (0.6-1.4) mg/dl Est Cr Clr Drug Dosing 114.9 ml/min Est GFR ( Amer) 120.3 Est GFR (Non-Af Amer) 103.8 BUN/Creatinine Ratio 12.3 (10-20) Glucose 117 H (70-99) mg/dl POC Glucose (70-99) mg/dl Lactate 1.5 (0.4-2.0) mmol/L Calcium 9.0 (8.5-10.1) mg/dl Magnesium 1.9 (1.8-2.4) mg/dl Total Bilirubin 0.3 (0.2-1) mg/dl AST 19 (15-37) U/L ALT 36 (12-78) U/L Alkaline Phosphatase 150 H (45-117) U/L Troponin I < 0.015 (0-0.045) ng/ml Total Protein 7.7 (6.4-8.2) gm/dl Albumin 3.6 (3.4-5.0) gm/dl Globulin 4.1 H (2.5-4.0) gm/dl Albumin/Globulin Ratio 0.9 (0.9-2) Urine Color Urine Appearance (Clear) Urine pH (4.5-7.5) Ur Specific [place] (1.000-1.030) Urine Protein (Negative) Urine Glucose (UA) (Negative) Urine Ketones (Negative) Urine Blood (Negative) Urine Nitrite (Negative) Urine Bilirubin (Negative) Urine Urobilinogen (Negative) Ur Leukocyte Esterase (Negative) COVID-19 Eval Order Covid19 Done at [facility] COVID-19 PCR (Negative) 08/09/20 08/09/20 08/09/20 Range/Units 01:50 01:53 04:00 WBC (4.8-10.8) K/uL RBC (4.7-6.1) M/uL Hgb (14.0-18.0) g/dL Hct (42-52) % MCV (80-100) fL MCH (25-34) pg MCHC (32-36) g/dL RDW Std Deviation (36.4-46.3) fL RDW Coeff of Chilo (11.5-14.5) % Plt Count (130-400) K/uL MPV (7.4-10.4) fL Immature Gran % (Auto) % Neut % (Auto) % Lymph % (Auto) % [place] % (Auto) % Eos % (Auto) % Baso % (Auto) % Neut # (Auto) (1.4-6.5) K/uL Lymph # (Auto) (1.2-3.4) K/uL [place] # (Auto) (0.11-0.59) K/uL Eos # (Auto) (0-0.5) K/uL Baso # (Auto) (0-0.2) K/uL Immature Gran # (Auto) (0.00-0.02) K/uL PT (9.0-12.0) Seconds INR (0.9-1.1) APTT (21.0-31.0) Seconds PTT Ratio ABG pH 7.38 (7.35-7.45) ABG pCO2 48 H (35-46) mmHg ABG pO2 93 (80-95) mmHg ABG HCO3 28 H (19-24) mmol/L ABG O2 Saturation 97.0 H (90-95) % ABG Base Excess 2.0 H (-9-1.8) mEq/L Stuart Test Pos (Pos) Oxygen Given 3L Sodium (136-145) mmol/L Potassium (3.5-5.1) mmol/L Chloride (98-107) mmol/L Carbon Dioxide (21-32) mmol/L Anion Gap (3-11) BUN (7-18) mg/dl Creatinine (0.6-1.4) mg/dl Est Cr Clr Drug Dosing ml/min Est GFR ( Amer) Est GFR (Non-Af Amer) BUN/Creatinine Ratio (10-20) Glucose (70-99) mg/dl POC Glucose (70-99) mg/dl Lactate (0.4-2.0) mmol/L Calcium (8.5-10.1) mg/dl Magnesium (1.8-2.4) mg/dl Total Bilirubin (0.2-1) mg/dl AST (15-37) U/L ALT (12-78) U/L Alkaline Phosphatase (45-117) U/L Troponin I (0-0.045) ng/ml Total Protein (6.4-8.2) gm/dl Albumin (3.4-5.0) gm/dl Globulin (2.5-4.0) gm/dl Albumin/Globulin Ratio (0.9-2) Urine Color Yellow Urine Appearance Clear (Clear) Urine pH 5.0 (4.5-7.5) Ur Specific [place] > 1.045 H (1.000-1.030) Urine Protein Negative (Negative) Urine Glucose (UA) Negative (Negative) Urine Ketones Negative (Negative) Urine Blood Negative (Negative) Urine Nitrite Negative (Negative) Urine Bilirubin Negative (Negative) Urine Urobilinogen Negative (Negative) Ur Leukocyte Esterase Negative (Negative) COVID-19 Eval Order COVID-19 PCR NEGATIVE (Negative) Administered Medications Aripiprazole (Aripiprazole 15 Mg Tab) 30 mg PO [facility] Stop: 09/08/20 20:59 Last Admin: 08/09/20 21:16 Dose: 30 mg Documented by: [id number] Benztropine Mesylate (Benztropine Mesylate 1 Mg Tab) 1 mg PO TID [facility] Stop: 09/08/20 08:59 Last Admin: 08/10/20 08:29 Dose: 1 mg Documented by: [id number] Admin: 08/09/20 21:17 Dose: 1 mg Documented by: [id number] Admin: 08/09/20 14:25 Dose: 1 mg Documented by: [id number] Admin: 08/09/20 08:50 Dose: 1 mg Documented by: [id number] Enoxaparin Sodium (Enoxaparin Inj 40 Mg/0.4 Ml Syr) 40 mg SQ QAM [facility] Stop: 09/08/20 11:59 Last Admin: 08/10/20 08:29 Dose: 40 mg Documented by: [id number] Admin: 08/09/20 13:06 Dose: 40 mg Documented by: [id number] Fluvoxamine Maleate (Fluvoxamine Maleate 50 Mg Tab) 50 mg PO [facility] Stop: 09/08/20 20:59 Last Admin: 08/09/20 21:17 Dose: 50 mg Documented by: [id number] Sodium Chloride (Nss 1000ml) 1,000 mls @ 100 mls/hr IV .Q10H [facility] Stop: 09/08/20 04:44 Last Admin: 08/10/20 02:46 Dose: 100 mls/hr Documented by: [id number] Infusion: 08/10/20 00:26 Dose: 100 mls/hr Documented by: [id number] Admin: 08/09/20 14:26 Dose: 100 mls/hr Documented by: [id number] Infusion: 08/09/20 14:26 Dose: 100 mls/hr Documented by: [id number] Admin: 08/09/20 04:42 Dose: 100 mls/hr Documented by: [id number] Propofol (Diprivan) 1,000 mg in 100 mls @ 11.964 mls/hr IV .Q8H22M NELL; Protocol Stop: 08/12/20 06:14 Last Admin: 08/10/20 05:01 Dose: 25 mcg/kg/min, 15 mls/hr Documented by: [id number] Cosigned by: [id number] Titration: 08/10/20 05:01 Dose: 25 mcg/kg/min, 15 mls/hr Documented by: [id number] Cosigned by: [id number] Titration: 08/10/20 02:35 Dose: 25 mcg/kg/min, 15 mls/hr Documented by: [id number] Cosigned by: [id number] Titration: 08/09/20 22:59 Dose: 20 mcg/kg/min, 12 mls/hr Documented by: [id number] Cosigned by: [id number] Admin: 08/09/20 22:59 Dose: 20 mcg/kg/min, 12 mls/hr Documented by: [id number] Cosigned by: [id number] Titration: 08/09/20 18:48 Dose: 20 mcg/kg/min, 12 mls/hr Documented by: [id number] Cosigned by: [id number] Titration: 08/09/20 18:48 Dose: 20 mcg/kg/min, 12 mls/hr Documented by: [id number] Titration: 08/09/20 18:18 Dose: 20 mcg/kg/min, 12 mls/hr Documented by: [id number] Admin: 08/09/20 14:25 Dose: 15 mcg/kg/min, 9 mls/hr Documented by: [id number] Cosigned by: [id number] Titration: 08/09/20 14:25 Dose: 15 mcg/kg/min, 9 mls/hr Documented by: [id number] Cosigned by: [id number] Titration: 08/09/20 10:12 Dose: 15 mcg/kg/min, 9 mls/hr Documented by: [id number] Admin: 08/09/20 08:00 Dose: 20 mcg/kg/min, 12 mls/hr Documented by: [id number] Cosigned by: [id number] Titration: 08/09/20 08:00 Dose: 20 mcg/kg/min, 12 mls/hr Documented by: [id number] Cosigned by: [id number] Admin: 08/09/20 06:13 Dose: 20 mcg/kg/min, 12 mls/hr Documented by: [id number] Cosigned by: [id number] Pantoprazole Sodium 40 mg/ (Syringe) 10 mls @ 5 mls/min IV DAILY@1100 [facility] Stop: 09/08/20 10:59 Last Admin: 08/09/20 08:50 Dose: 5 mls/min Documented by: [id number] Piperacillin Sod/Tazobactam (Sod 4.5 gm/ Dextrose) 120 mls @ 30 mls/hr IV Q8H NELL; Protocol Stop: 08/11/20 07:59 Last Admin: 08/10/20 08:28 Dose: 30 mls/hr Documented by: [id number] Infusion: 08/10/20 04:33 Dose: 0 mls/hr Documented by: [id number] Admin: 08/10/20 00:41 Dose: 30 mls/hr Documented by: [id number] Infusion: 08/09/20 20:59 Dose: 0 mls/hr Documented by: [id number] Admin: 08/09/20 16:12 Dose: 30 mls/hr Documented by: [id number] Infusion: 08/09/20 12:51 Dose: 0 mls/hr Documented by: [id number] Admin: 08/09/20 08:50 Dose: 30 mls/hr Documented by: [id number] Potassium Chloride (K Pato / Wtr) 10 meq in 100 mls @ 100 mls/hr IV Q1H [facility] Stop: 08/10/20 09:47 Last Admin: 08/10/20 09:34 Dose: 100 mls/hr Documented by: [id number] Infusion: 08/10/20 09:27 Dose: 100 mls/hr Documented by: [id number] Admin: 08/10/20 08:27 Dose: 100 mls/hr Documented by: [id number] Infusion: 08/10/20 07:32 Dose: 100 mls/hr Documented by: [id number] Admin: 08/10/20 06:32 Dose: 100 mls/hr Documented by: [id number] Oxcarbazepine (Oxcarbazepine 150 Mg Tablet) 600 mg PO TID [facility] Stop: 09/08/20 13:59 Last Admin: 08/10/20 08:29 Dose: 600 mg Documented by: [id number] Admin: 08/09/20 21:18 Dose: 600 mg Documented by: [id number] Admin: 08/09/20 14:25 Dose: 600 mg Documented by: [id number] Discontinued Medications Glycopyrrolate (Glycopyrrolate 0.2 Mg/Ml Vial) Confirm Administered Dose 0.4 mg .ROUTE .STK-MED ONE Stop: 08/09/20 05:27 Last Admin: 08/09/20 06:20 Dose: 0.2 mg Documented by: [id number] Sodium Chloride (Nss) 500 mls @ 999 mls/hr IV .Q31M ONE Stop: 08/09/20 02:42 Last Infusion: 08/09/20 03:00 Dose: 0 mls/hr Documented by: [id number] Admin: 08/09/20 02:29 Dose: 999 mls/hr Documented by: [id number] Piperacillin Sod/Tazobactam Sod (Zosyn) 4.5 gm in 120 mls @ 240 mls/hr IV NOW ONE Stop: 08/09/20 03:50 Last Infusion: 08/09/20 04:32 Dose: 0 mls/hr Documented by: [id number] Admin: 08/09/20 03:30 Dose: 240 mls/hr Documented by: [id number] Parenteral Electrolytes (Normosol-R) 1,000 mls @ 120 mls/hr IV .Q8H20M NE[facility] Stop: 09/08/20 07:06 Last Infusion: 08/09/20 08:51 Dose: 0 mls/hr Documented by: [id number] Admin: 08/09/20 07:59 Dose: 120 mls/hr Documented by: [id number] Propofol (Diprivan) 1,000 mg in 100 mls @ 11.964 mls/hr IV .Q8H22M NELL; Protocol Stop: 08/12/20 07:06 Last Admin: 08/09/20 08:00 Dose: Not Given Documented by: [id number] Ioversol (Optiray 320 125ml) 118 ml IV ONCE ONE Stop: 08/09/20 02:52 Last Admin: 08/09/20 02:52 Dose: 1 ml Documented by: [id number] Miscellaneous (Stat Iv Infusion Titration Per Protocol) 1 ea N/A NOW STA Stop: 08/09/20 06:09 Last Admin: 08/09/20 07:56 Dose: 1 ea Documented by: [id number] Propofol (Propofol Iv Emulsion 10 Mg/Ml 20 Ml Vial) Confirm Administered Dose 200 mg IV .STK-MED ONE Stop: 08/09/20 05:40 Last Admin: 08/09/20 05:57 Dose: 200 mg Documented by: [id number] Cosigned by: [id number] Propofol (Propofol Iv Emulsion 10 Mg/Ml 100 Ml Vial) Confirm Administered Dose 1,000 mg IV .STK-MED ONE Stop: 08/09/20 06:04 Last Admin: 08/09/20 06:21 Dose: Not Given Documented by: [id number] Discharge Plan Visit Data Chief Complaint: Fall Stated Complaint: FELL,SHAKY ON FEET,SOB,WHEEZING ED Provider: Felecia Trujillo Discharge Problem: Acute respiratory failure, Aspiration pneumonia, Altered mental status Patient Disposition: Admitted As Inpatient Discharge Instructions Interventions: ED Discharge Assessment Last Done: 08/09/20 06:41 Discharge Problem: Acute respiratory failure Qualifiers: Respiratory failure complication: unspecified whether with hypoxia or hypercap candie Qualified Code(s): J96.00 - Acute respiratory failure, unspecified whether with hypoxia or hypercapnia Aspiration pneumonia Qualifiers: Aspiration pneumonia type: unspecified Laterality: bilateral Lung location: unspecified part of lung Qualified Code(s): J69.0 - Pneumonitis due to inhalation of food and vomit Altered mental status Qualifiers: Altered mental status type: somnolence Qualified Code(s): R40.0 - Somnolence
[2020-08-09] MEDS: SODIUM CHLORIDE 0.9% 1000ML 1,000 ML IV SCH ×2 (04:42→14:26)
[2020-08-09 04:44] LABS: Appearance Urine Clear (Clear); Bilirubin Urine Negative (Negative); Blood Urine Negative (Negative); Color Urine Yellow; Glucose Urine UA Negative (Negative); Ketones Urine Negative (Negative); Leukocyte Esterase Urine Negative (Negative); Nitrite Urine Negative (Negative); Protein Urine Negative (Negative); Specific Gravity Urine > 1.045 (1.000-1.030); Urobilinogen Urine Negative (Negative)
[2020-08-09] MEDS ORDERED: GLYCOPYRROLATE 0.2 MG/ML VIAL ONE (05:26)
[2020-08-09] MEDS ORDERED: PROPOFOL IV EMULSION 10 MG/ML 20 ML VIAL IV ONE (05:39)
--- NOTE | 2020-08-09 05:42 | History & Physical Report ---
Date of Service August 09, 2020 Assessment & Plan (1) Aspiration into airway: Guerrero Telles is a 40yo M with a PMHx of impaired glucose, schizophrenia, HAIDER, depression, GERD, and impaired communication who presents after a fall with concern for an aspiration event. Respiratory Distress 2/2 Suspected Aspiration Event with retained bronchial/tracheal debris - CT-C shows distal trachea and L and R mainstem bronchus debris consistent with aspiration. - Increased work of breathing on admission with tachycardia and tachypnea - Intubated by Anesthesia in ED - Transfer to ICU, pending potential bronchoscopy. Signed out to the ICU provider Continue empiric Zosyn No leukocytosis ABG on admission 7.3 // consistent with primary respiratory acidosis with underlying secondary metabolic alkalosis without acidemia Troponin negative Covid negative Schizophrenia -Aripiprazole and benztropine held for n.p.o. with intubation Depression -Fluvoxamine held for n.p.o. with intubation GERD - Protonix 40mg daily IV Imparied Fasting Glucose - Hold oral antiglycemics - ICU hyperglycemia protocol FENGI: NPO. Normosol 100cc/hr DVT PPx: SCDs Code Status: Conditional Code. No compressions. Would want shock, intubation, meds as needed. Discussed with pts mother at bedside Dispo: ICU (2) HAIDER (obstructive sleep apnea): (3) Chest pain due to GERD: (4) Schizophrenia: (5) Hypertension: (6) Impaired fasting glucose: (7) Depression: (8) Anxiety state, unspecified: (9) Gastroesophageal reflux disease: (10) Hyperlipidemia: History of Present Illness Chief Complaint: Aspiration, Respiratory Distress Primary Care Provider: Elijah Henderson MD Guerrero Telles is a 40yo M with a PMHx of impaired glucose, schizophrenia, HAIDER, depression, GERD, and impaired communication who presents after a fall with concern for an aspiration event. Pt is minimally conversational at baseline. History is collected with the assistance of his mother who is present at bedside. She reports that Guerrero lives at [facility] in a trailer. A thud was heard and he was found to have fallen ~1:30am. He appeared more confused, with grunting breathing, and was weak with difficulty standing. She reports he frequently gets up during the night to eat normally. Per his mothers report he has not been ill lately and has not had fevers, chills, cough, diarrhea, constipation, abdominal pain, congestion, or other symptoms prior to this. No difficult breathing. No sick contacts. He lives in a trailer at the [facility] is separate from the rest of the home where COVID positive cases have been. His roommate has not had any symptoms or COVID. Medhx reviewed SHx reviewed FHx noncontributory Allergies reviewed SOcial: No tobacco, alcohol, or recreational drug use. Living situation as above CODE STATUS: Conditional code. No chest compressions in event of an arrest. WOULD WANT respiratory support and intubation as indicated for resp distress. Would want ACLS medications and shock if indicated per pt's mother. Allergies Allergy/AdvReac Type Severity Reaction Status Date / Time lactose Allergy Unknown Unknown Verified 08/09/20 02:21 pollen extracts Allergy Unknown Unknown Verified 08/09/20 02:21 Home Medications Home Medications Medication Instructions Recorded Confirmed Type aripiprazole 30 mg tablet 30 mg PO HS 04/06/19 08/09/20 History benztropine 1 mg tablet 1 mg PO TID 04/06/19 08/09/20 History melatonin 3 mg tablet 3 mg PO HS 04/06/19 08/09/20 History multivitamin 1 tab PO DAILY 04/06/19 08/09/20 History oxcarbazepine 600 mg tablet 600 mg PO TID tab 07/23/19 08/09/20 History acetaminophen 325 mg capsule 325 mg PO Q8H PRN #90 cap 11/12/19 08/09/20 Rx CPAP Machine #1 ea 03/30/20 07/27/20 Rx lancets 33 gauge #100 ea 05/13/20 07/27/20 Rx omeprazole 40 mg capsule,delayed 40 mg PO DAILY #90 cap 05/18/20 08/09/20 Rx release blood sugar diagnostic #50 ea 05/19/20 07/27/20 Rx loperamide 2 mg capsule 2 mg PO Q4H PRN #60 cap 05/22/20 08/09/20 Rx sucralfate 1 gram tablet 1 g PO TID tab 05/28/20 08/09/20 History sitagliptin 25 mg tablet 25 mg PO DAILY #90 tab 07/15/20 08/09/20 Rx docusate sodium [Stool Softener] 100 mg PO DAILY PRN 08/09/20 08/09/20 History fluvoxamine 50 mg PO HS 08/09/20 08/09/20 History hydrochlorothiazide 12.5 mg PO QAM 08/09/20 08/09/20 History lisinopril 10 mg PO DAILY 08/09/20 08/09/20 History ondansetron HCl [Zofran] 8 mg PO Q8H PRN 08/09/20 08/09/20 History Past Med/Surg History Medical History (Updated 08/09/20 @ 23:23 by Felecia Trujillo DO) Abdominal pain Anxiety state, unspecified (03/19/13) Bipolar depression Esophageal dysfunction Gastroesophageal reflux disease (02/12/13) History of ulcerative colitis Insomnia Intermittent explosive disorder Kidney stone (03/19/13) Lactose intolerance Learning disabilities OCD (obsessive compulsive disorder) Oppositional defiant disorder (03/19/13) Psychosis Scoliosis Spina bifida occulta Tachycardia Surgical History Surgical history unknown Family History Father Hypertension Grandmother (Maternal) Breast cancer Other Impaired fasting glucose Kidney stone Denies family history of Colon cancer Ovarian cancer Prostate cancer Myocardial infarction Social History Smoking Status: Never smoker Do You Dip or Chew Tobacco: No; Hx Alcohol Use: No Hx Substance Use: No Preferred Language: Omani Communication Ability: Unable Communication Ability Comment: unknown - sedated Visual Impairment: No Limitations 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: Normal Rfid Developer Required: No Beliefs That Will Affect Care: None marital status: Single Current Living Situation: Other Current Living Situation Comment: [facility] current occupational status: unemployed Other Information That Helps Us Care for You: No Feels Safe at Home: Yes Physical Activity Frequency: Does not Exercise Seatbelt Use: always Assistive Devices Comment: unknown - sedated Review of Systems Review of Systems: Unobtainable due to cognitive status and Unobtainable due to reduced consciousness Physical Exam Physical Exam: General: Limited by cognitive status. Opens eyes to voice and physical stimuli, does ont follow commands or answer questions. Obese HEENT: L forehead abrasion, otherwise Atraumatic, normocephalic. PERLAA. Pulm: Grunting/nasal respirations on exam. Breath sounds diffusely coarse. Mild belly breathing and paradoxic breathing. Cardiac: RRR, -mrg. Radial pulses intact and symmetrical. Abdominal: Softly distended. BS present. Extremities: Inact, PT pulse intact and symmetrical. Unable to assess strength/sensation Results & Data Results & Data ([facility]) Vital Signs (Past 12 Hours) Vital Signs Temp Pulse Pulse Resp BP BP Pulse Ox 08/09/20 04:15 126 H 30 H 104/70 94 08/09/20 04:00 133 H 24 107/69 93 08/09/20 03:38 141 H 30 H 132/102 H 96 08/09/20 02:50 126 H 32 H 143/102 H 96 08/09/20 02:15 136 H 32 H 135/104 H 96 08/09/20 02:01 140 H 32 H 118/84 97 08/09/20 01:55 97 08/09/20 01:49 37.7 C H 08/09/20 01:43 97 08/09/20 01:28 37.4 C 133 H 32 H 138/76 88 L Code Status & VTE Plan VTE Prophylaxis Plan VTE Prophylaxis will be ordered: Yes Critical Care Time Critical Care Time: Yes Total Critical Care Time: 40 Supervising Physician Co-Signing Physician Notes Attending addendum: I have physically seen this patient, have supervised the medical residents activities, and agree with the H&P unless as otherwise noted. Assessment and Plan: Acute respiratory failure with hypoxia/aspiration pneumonia with altered ment ation/intubated while in the ED- Admitted to the intensive care unit CT scan shows debris consistent with aspiration in the distal trachea, left and right mainstem bronchus, and aspiration right lower lobe. Zosyn 4.55 g IV every 8 hours. Covid negative in the ED. Consult fixture relamper Dr. Tolentino and intensive care unit team. Schizophrenia/depression- Resume aripiprazole, benztropine and fluvoxamine after extubation. GERD- Placed on Protonix 40 mg IV daily Impaired fasting glucose- ICU hyperglycemia protocol Remaining orders and notations as noted Resident Activity Tracking Resident Involvement: Resident Care Provided Care Provided: Adult [facility]
[2020-08-09] MEDS ORDERED: PROPOFOL IV EMULSION 10 MG/ML 100 ML VIAL IV ONE (06:03)
[2020-08-09] MEDS ORDERED: PROPOFOL BOLUS FROM BAG IV PRN ×2 (06:08→07:07)
[2020-08-09] MEDS ORDERED: STAT IV Infusion **Titration per Protocol STA ×2 (06:08→07:07)
[2020-08-09] MEDS: propofoL 1,000 MG/100 ML VIAL IV SCH ×4 (06:13→22:59)
--- NOTE | 2020-08-09 06:30 | Anesthesiology Consultation ---
Date of Service August 09, 2020 Assessment & Plan Chart Review Chart Review: Patient NOT seen in Pre Admission Testing preop for intubation. Consults Requested none History Height/Weight Height: 5 ft 4 in Weight: 99.7 kg Allergies Allergy/AdvReac Type Severity Reaction Status Date / Time lactose Allergy Unknown Unknown Verified 08/09/20 02:21 pollen extracts Allergy Unknown Unknown Verified 08/09/20 02:21 Medications Home Medications Medication Instructions Recorded Confirmed Last Taken aripiprazole 30 mg tablet 30 mg PO HS 04/06/19 08/09/20 08/08/20 benztropine 1 mg tablet 1 mg PO TID 04/06/19 08/09/20 08/08/20 melatonin 3 mg tablet 3 mg PO HS 04/06/19 08/09/20 08/08/20 multivitamin 1 tab PO DAILY 04/06/19 08/09/20 08/08/20 oxcarbazepine 600 mg tablet 600 mg PO TID tab 07/23/19 08/09/20 08/08/20 acetaminophen 325 mg capsule 325 mg PO Q8H PRN #90 cap 11/12/19 08/09/20 Unknown CPAP Machine #1 ea 03/30/20 07/27/20 Unknown lancets 33 gauge #100 ea 05/13/20 07/27/20 Unknown omeprazole 40 mg capsule,delayed 40 mg PO DAILY #90 cap 05/18/20 08/09/20 08/08/20 release blood sugar diagnostic #50 ea 05/19/20 07/27/20 Unknown loperamide 2 mg capsule 2 mg PO Q4H PRN #60 cap 05/22/20 08/09/20 Unknown sucralfate 1 gram tablet 1 g PO TID tab 05/28/20 08/09/20 08/08/20 sitagliptin 25 mg tablet 25 mg PO DAILY #90 tab 07/15/20 08/09/20 08/08/20 docusate sodium [Stool Softener] 100 mg PO DAILY PRN 08/09/20 08/09/20 Unknown fluvoxamine 50 mg PO HS 08/09/20 08/09/20 08/08/20 hydrochlorothiazide 12.5 mg PO QAM 08/09/20 08/09/20 08/08/20 lisinopril 10 mg PO DAILY 08/09/20 08/09/20 08/08/20 ondansetron HCl [Zofran] 8 mg PO Q8H PRN 08/09/20 08/09/20 Unknown Active Medications Generic Name Dose Route Start Last Admin Trade Name Kenzie PRN Reason Stop Dose Admin Sodium Chloride 1,000 mls @ 100 mls/hr 08/09/20 04:45 08/09/20 04:42 Nss 1000ml IV 09/08/20 04:44 100 mls/hr .Q10H NELL Administration Propofol 1,000 mg in 100 mls @ 11.964 mls/hr 08/09/20 06:15 08/09/20 06:13 Diprivan IV 08/12/20 06:14 20 mcg/kg/min .Q8H22M NELL 12 mls/hr Administration Protocol 20 MCG/KG/MIN NPO Date Last Intake of Solids: 08/08/20 Time Last Intake of Solids: 23:30 Past Medical History Medical History Abdominal pain Anxiety state, unspecified (03/19/13) Bipolar depression Esophageal dysfunction Gastroesophageal reflux disease (02/12/13) History of ulcerative colitis Insomnia Intermittent explosive disorder Kidney stone (03/19/13) Lactose intolerance Learning disabilities OCD (obsessive compulsive disorder) Oppositional defiant disorder (03/19/13) Psychosis Scoliosis Spina bifida occulta Tachycardia Exercise / Class Metabolic Activity III < 4 Walking/Shop/Light housework Past Family History Family History Father Hypertension Grandmother (Maternal) Breast cancer Other Impaired fasting glucose Kidney stone Denies family history of Colon cancer Ovarian cancer Prostate cancer Myocardial infarction Past Surgical History Surgical History Surgical history unknown egd x2 Past Anesthesia History No Hx of Anesthesia Complications and No Family Hx of Anesthesia Complications History of PONV No Hx of PONV and No Hx of Motion Sickness Social History Smoking Status: Never smoker Do You Dip or Chew Tobacco: No Hx Alcohol Use: No Hx Substance Use: No Physical Exam Vital Signs Last Vital Signs Temp 37.7 C H 08/09/20 01:49 Pulse 113 H 08/09/20 06:11 Resp 16 08/09/20 06:11 BP 104/70 08/09/20 04:15 Pulse Ox 94 08/09/20 06:11 Testing Laboratory Results 08/09/20 01:40 08/09/20 01:40 PT 10.4 Seconds (9.0-12.0) 08/09/20 01:40 INR 1.0 (0.9-1.1) 08/09/20 01:40 APTT 25.4 Seconds (21.0-31.0) 08/09/20 01:40 Urine Color Yellow 08/09/20 04:00 Urine Appearance Clear (Clear) 08/09/20 04:00 Urine pH 5.0 (4.5-7.5) 08/09/20 04:00 Ur Specific Frakes > 1.045 (1.000-1.030) H 08/09/20 04:00 Urine Protein Negative (Negative) 08/09/20 04:00 Urine Glucose (UA) Negative (Negative) 08/09/20 04:00 Urine Ketones Negative (Negative) 08/09/20 04:00 Urine Nitrite Negative (Negative) 08/09/20 04:00 Ur Leukocyte Esterase Negative (Negative) 08/09/20 04:00 08/09/20 01:30 POC Glucose 139 H
--- NOTE | 2020-08-09 06:41 | Anesthesiology Progress Note ---
Date of Service August 09, 2020 Assessment & Plan (1) Encounter for pre-operative examination: Admission and Anticipated Discharge Date Admission Date: Intubation Note Date and time of procedure: 08/09/2020, Indication for Intubation: Respiratory distress Unable to protect airway Unable to maintain airway patency Consent: Informed consent obtained from the designated proxy. The inherent risks, expected benefits, treatment alternatives, as well as the technical aspects of the procedure were discussed with the patient and a full explanation was given. All questions answered. Time Out: A time-out was performed verifying correct patient with two identifiers, procedure, site, positioning, and special equipment (if needed). Monitors Attached: EKG BP Pulse Oximetry CO2 Induction Medications: Ketamine and glyco given followed by propofol. See ER notes for full amounts and times given. Paralytic Medication: NONE Intubation Technique: Adequate preoxygenation Mask Ventilation Equipment: Glidescope Fiberoptic View: Grade 3 Endotracheal Tube: Oral 7.5 with Stylet Procedure Details: ET tube was placed Balloon was inflated and the tube was secured at [21] cm. Placement was confirmed by auscultation and positive CO2 detection. Post-procedure: Pt hemodynamically stable throughout. Patient tolerated the procedure well without apparent complications. Post placement CXR ordered. Patient with what appeared to be a very difficult airway. He had aspirated and has mental status changes on top of underlying cognitive disorder. [place] it was not possible to do a completely awake intubation on an uncooperative patient. Patient sedated with ketamine and glyco. Oral airway inserted with atomizer to spray 3ml 2% lidocaine. Attempted to place 7.5 ETT with fiberoptic through the intubating airway but did not pass easily. Removed oral airway and glidescope was inserted with patient sedated but spontaneously breathing. Was able to get a view of the vocal cords. Myself and the ER physician felt it was appropriate at this time to fully induce the patient with propofol only and attempt a glidescope intubation. This was done and was successful on the first attempt. Patient initially hypertensive but normotensive after propofol. SpO2 stable. ETT placed and b/l breath sounds after placing at 21cm at lip. positive EtCO2. CXR ordered. Patient tolerated procedure well and his mother was updated on his condition. Patient to be admitted to ICU as he is now on the ventialtor. Subjective Called by ER physician for assistance in intubation. Please see ER notes for full details regarding patient's underlying conditions. In brief, patient appeared to be an extremely difficult airway and needed to be intubated 2/2 airway protection and respiratory distress likely 2/2 aspiration. Covid neg. Consent obtained from patient's mother. See below for intubation details. Review of Systems Review of Systems: Unobtainable due to cognitive status Physical Exam Vital Signs: Last Vital Signs Temp 37.7 C H 08/09/20 01:49 Pulse 113 H 08/09/20 06:11 Resp 16 08/09/20 06:11 BP 104/70 08/09/20 04:15 Pulse Ox 94 08/09/20 06:11 Constitutional: + acute distress, + obese and + altered mental status ENMT: Mouth: + macroglossia and + small oral opening; no TMJ abnormality and no dentition abnormality Thyromental Distance: < 3.5 Finger Breadths Mallampati Class: IV Neck: + shortened thyromental distance, + short neck, + thick neck and + facial hair Respiratory: + respiratory distress; + abnormal respiratory effort Auscultation: + lungs not clear to auscultation Cardiovascular: Rate/Rhythm: regular rhythm and + tachycardic Musculoskeletal: Spine: normal cervical ROM and no pain with cervical ROM Neurologic: moves all extremities Psychiatric: Orientation: + not alert and + not oriented x 3 Results & Data ([facility]) Medications Administered Sodium Chloride (Nss 1000ml) 1,000 mls @ 100 mls/hr IV .Q10H [facility] Stop: 09/08/20 04:44 Last Admin: 08/09/20 04:42 Dose: 100 mls/hr Documented by: [id number] Propofol (Diprivan) 1,000 mg in 100 mls @ 11.964 mls/hr IV .Q8H22M [facility]; Protocol Stop: 08/12/20 06:14 Last Admin: 08/09/20 06:13 Dose: 20 mcg/kg/min, 12 mls/hr Documented by: [id number] Cosigned by: [id number]
[2020-08-09] MEDS ORDERED: propofoL 1,000 MG/100 ML VIAL IV SCH (07:07)
[2020-08-09] MEDS ORDERED: PIPERACILLIN/TAZOBACTAM 3.375 GM in DEXTROSE 5% 100 ML IV SCH (07:07)
[2020-08-09] MEDS ORDERED: NORMOSOL-R 1,000 ML IV SCH (07:07)
[2020-08-09] MEDS ORDERED: ICU PROTOCOL FOR HYPERGLYCEMIA PRN (07:07)
--- NOTE | 2020-08-09 07:19 | XRay Report ---
XR chest 1V portable CLINICAL HISTORY: post ET COMPARISON STUDY: Chest radiograph and chest CT August 09, 2020. FINDINGS: Incidental note is made of suspected contrast within the collecting systems from recent con trast-enhanced chest CT. The tip of the endotracheal tube is 2.3 cm above the josé. Lung volumes ar e diminished. No pneumothorax or pleural effusion is identified. Left lung airspace opacity is increa sed. There is mild right infrahilar opacity. IMPRESSION: 1. Satisfactory positioning of the endotracheal tube. 2. Persistent low lung volumes with increasing bilateral airspace opacities, greater within the left lung. The findings favor an infectious process. Asymmetric edema could appear similar but is consider ed less likely. ACT 112: Negative or not required by law. Electronically signed by: Manuel Arreguin M.D. 08/09/2020 7:17 AM
--- NOTE | 2020-08-09 07:30 | CT Scan Report ---
CT head/brain wo con CLINICAL HISTORY: Head pain status post trauma COMPARISON STUDY: 12/05/2011 TECHNIQUE: Axial CT of the brain is performed from the vertex to the skull base. IV contrast was not administered for this examination. A dose lowering technique was utilized adhering to the principles of ALARA. CT DOSE: FINDINGS: No intra or extra-axial mass lesions are visualized. There is no CT evidence of acute cortical infarc tion. There is no evidence of midline shift. There is no acute hemorrhage. No calvarial fractures ar e visualized. There are patchy white matter hypodensities likely on a small vessel basis. This is greater than expe cted for age. There is no evidence of pathologic ventricular dilatation. There is no evidence of acute sinusitis IMPRESSION: 1. No acute intracranial findings 2. Subtle periventricular white matter hypodensities, likely on a small vessel basis, but greater dawn n expected for age. ACT 112: Negative or not required by law. Electronically signed by: Papito Herrera M.D. 08/09/2020 7:29 AM
--- NOTE | 2020-08-09 07:43 | CT Scan Report ---
CT ANGIOGRAPHY OF THE CHEST, PULMONARY EMBOLUS PROTOCOL CLINICAL HISTORY: Fall. Unresponsive. COMPARISON STUDY: Chest radiograph March 19, 2013 and August 09, 2020. TECHNIQUE: Following IV administration of 118 mL of Optiray-320, helical axial images of the chest we re obtained utilizing the pulmonary embolus protocol. Maximal intensity projections and sagittal and coronal reformats were viewed on an independent 3D workstation. IV contrast was administered withou t complication. Automated exposure control was utilized for the study. A dose lowering technique wa s utilized adhering to the principles of ALARA. CT DOSE: 1696.23 mGy.cm FINDINGS: No central or lobar pulmonary emboli are identified. The segmental and subsegmental pulmon lia arteries are suboptimally assessed due to respiratory motion. Moderate cardiac megaly is noted. T here is no pericardial effusion. No thoracic aortic dissection is noted. No enlarged thoracic lymph n odes are noted. There is no pneumothorax or pleural effusion. Lungs are suboptimally assessed given r espiratory motion. There are mild multifocal groundglass opacities within the lungs. No acute fractur e within the visualized skeletal structures is noted. There is mild S-shaped curvature of the thoraci c spine. Upper abdomen is unremarkable with exception of possible hepatic steatosis. IMPRESSION: 1. Exam compromised by respiratory motion artifact. No central or lobar pulmonary emboli. Remainder o f pulmonary arteries suboptimally assessed. 2. Moderate cardiomegaly. 3. Mild multifocal groundglass opacities which may be infectious or atelectatic. ACT 112: Negative or not required by law. Electronically signed by: Manuel Arreguin M.D. 08/09/2020 7:41 AM
--- NOTE | 2020-08-09 07:49 | XRay Report ---
XR chest 1V portable CLINICAL HISTORY: SEPSIS COMPARISON STUDY: Chest radiograph March 19, 2013. FINDINGS: Lung volumes are diminished. Cardiomegaly is noted. There is no pneumothorax or pleural eff usion. There is mild interstitial thickening. There is minimal left lower lung opacity. IMPRESSION: 1. Low lung volumes with minimal left basilar opacity. 2. Cardiomegaly. Pulmonary vascular congestion without evidence for pulmonary edema. ACT 112: Negative or not required by law. Electronically signed by: Manuel Arreguin M.D. 08/09/2020 7:47 AM
[2020-08-09] MEDS: PANTOprazole 40 MG in SYRINGE 0 ML IV SCH (08:50)
[2020-08-09] MEDS: BENZTROPINE MESYLATE 1 MG TAB PO SCH ×3 (08:50→21:17)
[2020-08-09] MEDS: PIPERACILLIN/TAZOBACTAM 4.5 GM in DEXTROSE 5% 100 ML IV SCH ×2 (08:50→16:12)
--- NOTE | 2020-08-09 11:48 | Critical Care Consultation ---
Date of Consultation August 09, 2020 Assessment & Plan (1) Multilobar lung infiltrate: CT chest 08/09/2020 personally reviewed: Motion artifact, dynamic airway collapse is appreciated especially in the trachea as evident by the posterior wall indentation into the trachea. Tracheomalacia would be in the differential there is minimal groundglass opacities appreciated especially in the right lower and right upper lobe. Chest x-ray following intubation: Poor inspiratory effort, haziness appreciated in the left lower as well as left upper likely consolidation. EGD 08/09/2020: Sinus tachycardia, a lot of artifacts, normal axis, no ST-T wave changes appreciated -- VDRF Likely secondary to aspiration pneumonia Continue with ventilatory support Keep RASS -1 Daily sedation holidays and SBT's Chlorhexidine mouthwash COVID-19 negative,Nasal MRSA negative plan follow-up influenza a and B Urine clean --Chronically elevated Alk phos normal AST/ALT will order GGT --Diabetes type 2 ICU hyperglycemia protocol --Hypertension Blood pressure medication on hold --Schizophrenia Continue with home medications --HAIDER with morbid obesity Resume CPAP once extubated --Intellectual disability -- No CPR --Prophylaxis VTE: Lovenox GI: Protonix Lines: Peripheral Diet: Tube feeds Plan: Nasal MRSA is negative. Continue with Zosyn. Follow-up septic work-up, follow-up sputum culture F/u Influenza I have personally spent 57 minutes of critical care time in the direct management of this patient. This is a life/limb threatening event. This includes time spent evaluating patient, direct bedside care, chart review, placing orders, interpretation of diagnostic studies, discussion with consultants, patient, and family members, as well as other required patient management activities. This time is exclusive of all separately billable procedures, and teaching time and separate from and in addition to any other critical care service time. Please note the above document was generated using voice recognition software. It may contain grammatical, syntax or spelling errors. (2) HAIDER (obstructive sleep apnea): (3) Aspiration into airway: (4) Schizophrenia: History of Present Illness Attending Physician: Juaquin Sarkar MD History of Present Illness 40-year-old male with past medical history of impaired mentation, schizophrenia, HAIDER, depression presented to the ED after a fall and possible aspiration event In the ED patient was found to be in distress. Anesthesia intubated the patient and he was subsequently sent to ICU for further management of the vent. By her mother patient stays at a [facility] group. No sick contacts. No known contacts of Covid 19. At the time of examination in the ICU. Patient was on propofol 20. He was breathing with the vent. He was not responding. RASS -3. T-max 37.7. Pupils are reactive. Positive corneal, positive gag. Social history: No tobacco, alcohol, or recreational drug use. Living situation as above History obtained from previous chart. Allergies Allergy/AdvReac Type Severity Reaction Status Date / Time lactose Allergy Unknown Unknown Verified 08/09/20 02:21 pollen extracts Allergy Unknown Unknown Verified 08/09/20 02:21 Home Medications Home Medications Medication Instructions Recorded Confirmed Type aripiprazole 30 mg tablet 30 mg PO HS 04/06/19 08/09/20 History benztropine 1 mg tablet 1 mg PO TID 04/06/19 08/09/20 History melatonin 3 mg tablet 3 mg PO HS 04/06/19 08/09/20 History multivitamin 1 tab PO DAILY 04/06/19 08/09/20 History oxcarbazepine 600 mg tablet 600 mg PO TID tab 07/23/19 08/09/20 History acetaminophen 325 mg capsule 325 mg PO Q8H PRN #90 cap 11/12/19 08/09/20 Rx CPAP Machine #1 ea 03/30/20 07/27/20 Rx lancets 33 gauge #100 ea 05/13/20 07/27/20 Rx omeprazole 40 mg capsule,delayed 40 mg PO DAILY #90 cap 05/18/20 08/09/20 Rx release blood sugar diagnostic #50 ea 05/19/20 07/27/20 Rx loperamide 2 mg capsule 2 mg PO Q4H PRN #60 cap 05/22/20 08/09/20 Rx sucralfate 1 gram tablet 1 g PO TID tab 05/28/20 08/09/20 History sitagliptin 25 mg tablet 25 mg PO DAILY #90 tab 07/15/20 08/09/20 Rx docusate sodium [Stool Softener] 100 mg PO DAILY PRN 08/09/20 08/09/20 History fluvoxamine 50 mg PO HS 08/09/20 08/09/20 History hydrochlorothiazide 12.5 mg PO QAM 08/09/20 08/09/20 History lisinopril 10 mg PO DAILY 08/09/20 08/09/20 History ondansetron HCl [Zofran] 8 mg PO Q8H PRN 08/09/20 08/09/20 History Patient History Medical History (Updated 08/09/20 @ 11:46 by Rubén Tolentino MD) Abdominal pain Anxiety state, unspecified (03/19/13) Bipolar depression Esophageal dysfunction Gastroesophageal reflux disease (02/12/13) History of ulcerative colitis Insomnia Intermittent explosive disorder Kidney stone (03/19/13) Lactose intolerance Learning disabilities OCD (obsessive compulsive disorder) Oppositional defiant disorder (03/19/13) Psychosis Scoliosis Spina bifida occulta Tachycardia Surgical History Surgical history unknown Family History Father Hypertension Grandmother (Maternal) Breast cancer Other Impaired fasting glucose Kidney stone Denies family history of Colon cancer Ovarian cancer Prostate cancer Myocardial infarction Social History Smoking Status: Never smoker Do You Dip or Chew Tobacco: No; Hx Alcohol Use: No Hx Substance Use: No Preferred Language: Greek Communication Ability: Impaired Communication Ability Comment: unknown - sedated Visual Impairment: No Limitations 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: Normal 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: No Beliefs That Will Affect Care: None marital status: Single Current Living Situation: Other Current Living Situation Comment: [facility] current occupational status: unemployed Other Information That Helps Us Care for You: No Feels Safe at Home: Yes Physical Activity Frequency: Does not Exercise Seatbelt Use: always Assistive Devices Comment: unknown - sedated Review of Systems Review of Systems: Unobtainable due to mental health condition and Unobtainable due to endotracheal tube Physical Exam Physical Exam: Constitutional: No acute distress HEENT: PERRLA, short thick neck, positive ETT Respiratory system: Decreased air entry bilaterally, no wheeze, no rhonchi, positive crackles bilaterally CVS: S1-S2 positive, no murmurs or gallops, Tachycardia Abdomen: Soft, nontender, nondistended, positive bowel sounds x4 Extremities: +2 pulses bilaterally radialis/ dorsalis pedis, no cyanosis, no edema Neuro: Positive pupillary, positive corneal, positive gag Psych: Unable to assess G/U: Positive Wooten Skin: no rashes, warm and dry Lymphatic: no cervical or axillary lymphadenopathy Results & Data Results & Data ([facility]) Vital Signs (Past 12 Hours) Vital Signs Temp Pulse Pulse Pulse Resp BP BP 08/09/20 11:24 105 H 12 08/09/20 11:00 37.0 C 106 H 12 119/82 08/09/20 10:00 36.8 C 113 H 18 118/87 08/09/20 08:50 96 H 12 08/09/20 07:15 36.4 C L 102 H 16 115/86 08/09/20 07:07 36.4 C L 107 H 16 123/82 08/09/20 06:58 109 H 16 08/09/20 06:39 109 H 16 114/68 08/09/20 06:11 113 H 16 08/09/20 04:15 126 H 30 H 104/70 08/09/20 04:00 133 H 24 107/69 08/09/20 03:38 141 H 30 H 132/102 H 08/09/20 02:50 126 H 32 H 143/102 H 08/09/20 02:15 136 H 32 H 135/104 H 08/09/20 02:01 140 H 32 H 118/84 08/09/20 01:55 08/09/20 01:49 37.7 C H 08/09/20 01:43 08/09/20 01:28 37.4 C 133 H 32 H 138/76 Pulse Ox 08/09/20 11:24 96 08/09/20 11:00 94 08/09/20 10:00 94 08/09/20 08:50 97 08/09/20 07:15 95 08/09/20 07:07 95 08/09/20 06:58 94 08/09/20 06:39 95 08/09/20 06:11 94 08/09/20 04:15 94 08/09/20 04:00 93 08/09/20 03:38 96 08/09/20 02:50 96 08/09/20 02:15 96 08/09/20 02:01 97 08/09/20 01:55 97 08/09/20 01:49 08/09/20 01:43 97 08/09/20 01:28 88 L 08/09/20 01:40 08/09/20 01:40 Coding Level of Care Code Critical Care 1st 30-74 mins Diagnoses Multilobar lung infiltrate R91.8 HAIDER (obstructive sleep apnea) G47.33 Aspiration into airway T17.908A Schizophrenia F20.9 Time Spent (min) 57
[2020-08-09] MEDS ORDERED: KETAMINE HCL INJ 50 MG/ML 10 ML VIAL IV ONE (12:17)
--- NOTE | 2020-08-09 12:40 | Electrocardiogram Report ---
Test Reason : Blood Pressure : / mmHG Vent. Rate : 137 BPM Atrial Rate : 137 BPM P-R Int : 146 ms QRS Dur : 078 ms QT Int : 284 ms P-R-T Axes : 054 050 -03 degrees QTc Int : 428 ms Poor data quality, interpretation may be adversely affected Sinus tachycardia Poor R wave progression, consider anterior MN vs. lead placement vs. LVH Abnormal ECG When compared with ECG of 12-FEB-2013 12:48, No significant change was found Confirmed by Kar Bro ([id number]) on 08/09/2020 12:39:46 PM Referred By: REFERRED SELF Confirmed By:Kar Bro
[2020-08-09] MEDS: ENOXAPARIN INJ 40 MG/0.4 ML SYR SQ SCH (13:06)
[2020-08-09 13:26] LABS: Influenza A virus by PCR Negative (Negative); Influenza B virus by PCR Negative (Negative)
[2020-08-09] MEDS: OXcarbazepine 150 MG TABLET PO SCH ×2 (14:25→21:18)
--- NOTE | 2020-08-09 20:16 | History & Physical Bridge Note ---
Date of Service August 09, 2020 History & Physical Bridge Note I have examined the patient, reviewed the History & Physical and in the interval since the performance of the History & Physical I have noted the following changes of clinical significance: no changes noted
[2020-08-09] MEDS: ARIPiprazole 15 MG TAB PO SCH (21:16)
[2020-08-09] MEDS: fluvoxaMINE MALEATE 50 MG TAB PO SCH (21:17)
--- NOTE | 2020-08-10 00:32 | Billing Data ---
Date of Service August 10, 2020 Coding Level of Care Code Critical Care 1st - mins
[2020-08-10] MEDS: PIPERACILLIN/TAZOBACTAM 4.5 GM in DEXTROSE 5% 100 ML IV SCH ×2 (00:41→08:28)
[2020-08-10] MEDS: SODIUM CHLORIDE 0.9% 1000ML 1,000 ML IV SCH ×3 (02:46→19:35)
[2020-08-10 03:33] LABS: iSTAT Allen Test Pass; iSTAT Arterial Blood Gas HCO3 27 meg/L (19-24); iSTAT Arterial Blood Gas pCO2 41 mmHg (35-46); iSTAT Arterial Blood Gas pH 7.42 (7.35-7.45); iSTAT Arterial Blood Gas pO2 75 mmHg (80-95); iSTAT Carbon Dioxide 28 mmol/L (24-31); iSTAT FiO2 30 %; iSTAT Site L Radial
[2020-08-10] MEDS: propofoL 1,000 MG/100 ML VIAL IV SCH ×2 (05:01→10:55)
[2020-08-10 05:03] LABS: Basophils # (auto) 0.01 K/uL (0-0.2); Basophils % (auto) 0.1 %; Eosinophils # (auto) 0.05 K/uL (0-0.5); Eosinophils % (auto) 0.6 %; Hematocrit (blood only) 34.1 % (42-52); Hemoglobin 11.5 g/dL (14.0-18.0); Immature Granulocytes # (auto) 0.02 K/uL (0.00-0.02); Immature Granulocytes % (auto) 0.2 %; Lymphocytes # (auto) 1.66 K/uL (1.2-3.4); Lymphocytes % (auto) 18.3 %; Mean Corpuscular Hemoglobin 30.5 pg (25-34); Mean Corpuscular Hgb Conc 33.7 g/dL (32-36); Mean Corpuscular Volume 90.5 fL (80-100); Mean Platelet Volume 9.2 fL (7.4-10.4); Monocytes # (auto) 0.54 K/uL (0.11-0.59); Neutrophils # (auto) 6.77 K/uL (1.4-6.5); Neutrophils % (auto) 74.8 %; Platelet Count 167 K/uL (130-400); RDW Coefficient of Variation 13.2 % (11.5-14.5); Red Blood Count 3.77 M/uL (4.7-6.1); White Blood Count 9.05 K/uL (4.8-10.8)
[2020-08-10 05:33] LABS: Calcium 8.1 mg/dl (8.5-10.1); Creatinine Clr Calc Pharmacy 154.8 ml/min; Est GFR (African American) 139.6; Est GFR (Non-African American) 120.4; Magnesium 1.9 mg/dl (1.8-2.4); Potassium 3.4 mmol/L (3.5-5.1)
[2020-08-10 05:34] LABS: Phosphorus 2.5 mg/dl (2.5-4.9)
--- NOTE | 2020-08-10 05:55 | Critical Care Progress Note ---
Date of Service August 10, 2020 Assessment & Plan (1) Aspiration into airway: Reason Critically Ill: 40 yo M PMHx significant for schizophrenia, depression, HAIDER, developmental delay who presented to the ED following a fall and who was admitted for acute respiratory failure with concern for aspiration. Neuro - [facility] ICU: negative Sedation: none Analgesia: none Schizophrenia, developmental delay: - History of, continue oxcarbazepine, fluvoxamine, benztropine, aripiprazole. - At baseline mental status. - Decision major while intubated was mother. - Patient was able to be extubated after transitioning to Precedex drip. Cardiac - - EKGs have shown sinus rhythm/ sinus tachycardia without ST/T wave changes. - Troponins negative. - No chest pain. Continue cardiac monitoring. Respiratory - Acute hypoxic respiratory failure: - Likely secondary to aspiration pneumonia. - Has been extubated and is saturating well on 4LNC. - COVID 19 and influenza negative. - CT showed evidence of tracheomalacia as well as groundglass opacities appreciated in the right lower and right upper lobe. - CXR showed poor inspiratory effort, haziness appreciated in the left lower as well as left upper lobes, likely representing consolidation. - Patient with short neck and tracheomalacia with Hx HAIDER, should be on positive pressure ventilation while asleep. - Once extubated, patient was given a racemic epinephrine nebulizer and some cool mist for some post extubation stridor. - Have transitioned Zosyn to Unasyn as no risk factors for Pseudomonas infection. GI - - NPO at this time. Continue NSS @ 100cc/hr. - Speech evaluation ordered. Chronic elevated Alk Phos: - No abdominal pain. - 07/2019 Abdominal US showed hepatic steatosis. - 01/2020 CTAP without findings suggestive of gallbladder disease. - GGT pending. RENAL/LYTES - - No significant electrolyte derangement. - Replace lytes as needed. - - No concerns at this time. - UA not suggestive of infection. - Strict Is/Os. ENDO - - ICU hyperglycemia protocol. HEME - - Stable H&H. ID - - COVID 19 negative, influenza A and B negative. - Urine no signs of infection. - CXR with multifocal pneumonia, likely aspiration. - Continue Unasyn as above due to no risk factors for Pseudomonas infection. LINES/IV ACCESS - - PIVs intact. DVT PROPHYLAXIS - - Enoxaparin 40mg daily. Code Status: Conditional Code; intubation okay, no CPR, defibril lation/cardioversion okay. Thank you for allowing us to be part of this patient's care. Please refer to Dr. Aguilar's documentation for any further recommendations. (2) HAIDER (obstructive sleep apnea): (3) Chest pain due to GERD: (4) Schizophrenia: (5) Hypertension: (6) Impaired fasting glucose: (7) Depression: (8) Anxiety state, unspecified: (9) Gastroesophageal reflux disease: (10) Hyperlipidemia: Admission and Anticipated Discharge Date Admission Date: August 09, 2020 Supervising Physician Co-Signing Physician Notes Dr. Nava was resident physician during care of patient. I separately evaluated patient for sotomayor portions of the history and the exam. I was present during the critical portion of medical decision making, and I discussed the case with the resident. I generally agree with the findings and plan. Patient has developmental delay and is not interactive with direction, he was on minimal ventilatory settings and appeared to have a cuff leak as he would occasionally be able to cough around the tube, we proceeded with extubation and he appears to have tolerated this procedure well. He was given a racemic epinephrine nebulizer and some cool mist for some post extubation stridor as well as a dose of steroids. Continue antibiotics at this time. Subjective Patient without acute events overnight. Able to extubate late this morning. Has had some tachycardia throughout the day following extubation. Minimally verbal at baseline, but non-toxic appearing. Currently on 4LNC saturating well. Denies abdominal or chest pain, denies SOB. Review of Systems Review of Systems: All systems reviewed & are unremarkable except as noted in HPI & below Respiratory: + cough; no dyspnea Cardiovascular: no chest pain, no palpitations and no edema Gastrointestinal: no abdominal pain, no constipation and no diarrhea/loose stools Physical Exam Constitutional: WD/WN, vitals as above Eyes: normal visual gomez by confrontation and + anicteric sclerae Neck: normal visual inspection and trachea midline Respiratory: normal respiratory effort, lungs clear to auscultation coarse lung sounds Cardiovascular: Rate/Rhythm: regular rate and regular rhythm Gastrointestinal (Abdomen): Inspection/Auscultation: abdomen not distended Percussion/Palpation: abdomen soft; abdomen nontender Musculoskeletal: Head/Neck/Chest: normocephalic and head atraumatic negative for edema, peripheral pulses intact Skin: no rashes, warm and dry Neurologic: awake (appears to be at baseline mental status which is minimally conversive,alert); not confused Psychiatric: euthymic affect, alert. At baseline mental status Results & Data Results & Data ([facility]) Vital Signs (Past 12 Hours) Vital Signs Temp Pulse Pulse Resp BP Pulse Ox 08/10/20 05:14 36.9 C 86 12 94 08/10/20 04:27 36.9 C 87 18 95/64 L 96 08/10/20 03:27 37 C 94 H 14 115/78 94 08/10/20 02:27 37 C 94 H 22 115/82 94 08/10/20 01:27 37 C 82 14 112/77 95 08/10/20 00:40 93 H 14 95 08/10/20 00:27 37.1 C 87 12 98/67 L 94 08/09/20 23:27 37.1 C 105 H 16 96/66 L 93 08/09/20 22:34 37.1 C 106 H 14 131/80 91 08/09/20 21:40 88 12 95 08/09/20 21:27 37.1 C 89 14 98/67 L 96 08/09/20 20:27 37.1 C 91 H 16 97/65 L 95 08/09/20 19:27 37.1 C 94 H 12 102/74 95 08/09/20 18:15 88 12 95 08/09/20 18:00 37.1 C 101 H 12 103/67 95 Critical Care Time Critical Care Time: Yes Total Critical Care Time: 40 I have personally spent 40 minutes of critical care time in the direct management of this patient. This is a life/limb threatening event. This includes time spent evaluating patient, direct bedside care, chart review, placing orders, interpretation of diagnostic studies, discussion with consultants, patient, and/or family members regarding treatment decisions, as well as other required patient management activities. This time is exclusive of all separately billable procedures, and teaching time and separate from and in addition to any other critical care service time. Resident Activity Tracking Resident Involvement: Resident Care Provided Care Provided: [facility]
[2020-08-10] MEDS: POTASSIUM CHLORIDE / WTR 10 MEQ/100 ML PLCT IV SCH ×4 (06:32→10:54)
--- NOTE | 2020-08-10 07:28 | XRay Report ---
XR chest 1V portable CLINICAL HISTORY: Respiratory failure COMPARISON STUDY: 08/09/2020 FINDINGS: The endotracheal tube is 43 mm above the josé. There has been interval placement of a dang ogastric tube which passes into the stomach. The heart is enlarged. There are low lung volumes. There are bilateral airspace opacities, atelectatic versus infectious/inflammatory[ IMPRESSION: 1. Endotracheal tube 43 mm above the josé 2. Nasogastric tube within the stomach 3. Low lung volumes. Bilateral airspace opacities, atelectatic versus infectious/inflammatory ACT 112: Negative or not required by law. Electronically signed by: Papito Herrera M.D. 08/10/2020 7:27 AM
[2020-08-10] MEDS: ENOXAPARIN INJ 40 MG/0.4 ML SYR SQ SCH (08:29)
[2020-08-10] MEDS: BENZTROPINE MESYLATE 1 MG TAB PO SCH ×3 (08:29→19:33)
[2020-08-10] MEDS: OXcarbazepine 150 MG TABLET PO SCH ×3 (08:29→19:33)
[2020-08-10] MEDS ORDERED: STAT IV Infusion **Titration per Protocol STA (10:48)
[2020-08-10] MEDS ORDERED: DEXMEDETOMIDINE HCL 200 MCG in SODIUM CHLORIDE 0.9% 48 ML IV SCH (11:00)
[2020-08-10] MEDS: PANTOprazole 40 MG in SYRINGE 0 ML IV SCH (11:03)
[2020-08-10] MEDS ORDERED: DEXAMETHASONE SOD INJ 10 MG/ML VIAL IV ONE (11:39)
[2020-08-10] MEDS ORDERED: RACEPINEPHRINE 2.25% NEBU SOLN 0.5 ML VIAL ONE (11:40)
[2020-08-10] MEDS ORDERED: RACEPINEPHRINE 2.25% NEBU SOLN 0.5 ML VIAL NEB STA (11:43)
[2020-08-10] MEDS ORDERED: DEXAMETHASONE SOD PHOSPHATE 4 MG in SYRINGE 0 ML IV ONE (12:00)
[2020-08-10] MEDS: AMPICILLIN/SULBACTAM SOD 3,000 MG in 0.9 % SODIUM CHLORIDE 100 ML IV SCH ×2 (13:50→19:33)
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
--- NOTE | 2020-08-10 18:14 | Billing Data ---
Date of Service August 10, 2020 Coding Level of Care Code Critical Care 1st - mins
[2020-08-10] MEDS: ARIPiprazole 15 MG TAB PO SCH (19:33)
[2020-08-10] MEDS: fluvoxaMINE MALEATE 50 MG TAB PO SCH (19:33)
[2020-08-10] MEDS: ACETAMINOPHEN 325 MG TAB PO PRN (20:36)
[2020-08-11] MEDS: AMPICILLIN/SULBACTAM SOD 3,000 MG in 0.9 % SODIUM CHLORIDE 100 ML IV SCH ×3 (02:20→13:13)
[2020-08-11] MEDS: SODIUM CHLORIDE 0.9% 1000ML 1,000 ML IV SCH (04:12)
[2020-08-11 04:42] LABS: Basophils # (auto) 0.01 K/uL (0-0.2); Basophils % (auto) 0.1 %; Hematocrit (blood only) 36.3 % (42-52); Hemoglobin 12.1 g/dL (14.0-18.0); Immature Granulocytes # (auto) 0.08 K/uL (0.00-0.02); Immature Granulocytes % (auto) 0.9 %; Lymphocytes # (auto) 1.64 K/uL (1.2-3.4); Lymphocytes % (auto) 17.6 %; Mean Corpuscular Hemoglobin 30.9 pg (25-34); Mean Corpuscular Hgb Conc 33.3 g/dL (32-36); Mean Corpuscular Volume 92.6 fL (80-100); Mean Platelet Volume 9.5 fL (7.4-10.4); Monocytes # (auto) 0.64 K/uL (0.11-0.59); Monocytes % (auto) 6.9 %; Neutrophils # (auto) 6.96 K/uL (1.4-6.5); Neutrophils % (auto) 74.5 %; Platelet Count 197 K/uL (130-400); RDW Coefficient of Variation 13.2 % (11.5-14.5); RDW Standard Deviation 44.6 fL (36.4-46.3); Red Blood Count 3.92 M/uL (4.7-6.1); White Blood Count 9.33 K/uL (4.8-10.8)
[2020-08-11 05:17] LABS: BUN Creatinine Ratio 11.5 (10-20); Calcium 8.9 mg/dl (8.5-10.1); Creatinine Clr Calc Pharmacy 146.7 ml/min; Est GFR (African American) 137.2; Est GFR (Non-African American) 118.3; Magnesium 2.4 mg/dl (1.8-2.4); Potassium 3.7 mmol/L (3.5-5.1)
--- NOTE | 2020-08-11 06:13 | Critical Care Progress Note ---
Date of Service August 11, 2020 Assessment & Plan (1) Aspiration into airway: Reason Critically Ill: 40 yo M PMHx significant for schizophrenia, depression, HAIDER, developmental delay who presented to the ED following a fall and who was admitted for acute respiratory failure with concern for aspiration pneumonia. Neuro - CAM ICU: negative Sedation: none Analgesia: none Schizophrenia, developmental delay: - History of, continue oxcarbazepine, fluvoxamine, benztropine, aripiprazole. - At baseline mental status. Cardiac - - EKGs have shown sinus rhythm/ sinus tachycardia without ST/T wave changes. - Troponins negative. - No chest pain. No need for continued cardiac monitoring. Respiratory - Acute hypoxic respiratory failure: - Likely secondary to aspiration pneumonia. - COVID 19 and influenza negative. - CT showed evidence of tracheomalacia as well as groundglass opacities appreciated in the right lower and right upper lobe. - CXR showed poor inspiratory effort, haziness appreciated in the left lower as well as left upper lobes, likely representing consolidation. - Has been extubated and is saturating well on 4LNC. - Once extubated, patient was given a racemic epinephrine nebulizer and some cool mist for some post extubation stridor. - Patient with short neck and tracheomalacia with Hx HAIDER, should be on positive pressure ventilation while asleep, however given cognitive delay and resistance in the past to CPAP will defer this. - Continue Unasyn, no risk factors identified putting patient at risk for Pseudomonas infection. GI - - Patient tolerating oral intake well, have d/c'ed IV fluids. - DM2 diet. Chronic elevated Alk Phos: - No abdominal pain. - 07/2019 Abdominal US showed hepatic steatosis. - 01/2020 CTAP without findings suggestive of gallbladder disease. - GGT pending. Elevation possibly secondary to cholestasis. RENAL/LYTES - - No significant electrolyte derangement. - Replace lytes as needed. - - No concerns at this time. - UA not suggestive of infection. ENDO - - History of impaired fasting glucose, however no readings in EMR higher than 120. - Holding Januvia while admitted. - DM2 diet. Can add insulin SSI if needed for BSG control. HEME - - Stable H&H. ID - - COVID 19 negative, influenza A and B negative. - Urine no signs of infection. - CXR with multifocal pneumonia, likely aspiration. - Continue Unasyn as above due to no risk factors for Pseudomonas infection. MSK - - This AM complaining of left ankle pain. - Left ankle 3 view xray ordered, negative for fracture. - Tylenol PRN ankle pain. - If continued difficulty with ankle pain, should follow with PCP in outpatient setting. LINES/IV ACCESS - - PIVs intact. DVT PROPHYLAXIS - - Enoxaparin 40mg daily. Code Status: Conditional Code; intubation okay, no CPR, defibrillation/cardioversion okay. Thank you for allowing us to be part of this patient's care. This patient is stable from ICU perspective for downgrade to Med/Surg level of care. Please refer to Dr. Aguilar's documentation for any further recommendations. (2) HAIDER (obstructive sleep apnea): (3) Chest pain due to GERD: (4) Schizophrenia: (5) Hypertension: (6) Impaired fasting glucose: (7) Depression: (8) Anxiety state, unspecified: (9) Gastroesophageal reflux disease: (10) Hyperlipidemia: Admission and Anticipated Discharge Date Admission Date: August 09, 2020 Supervising Physician Co-Signing Physician Notes Dr. Nava was resident physician during care of patient. I separately evaluated patient for sotomayor portions of the history and the exam. I was present during the critical portion of medical decision making, and I discussed the case with the resident. I generally agree with the findings and plan. Patient remains extubated, tolerating diet appears at his reported baseline stable for downgrade out of ICU. Patient has ordered CPAP previously but he has always been noncompliant. Given the developmental delay and significant intolerance of interventions we will not pursue CPAP given the history. Subjective Patient with one episode of fever overnight, none since about 9pm yesterday. This AM when gotten out of bed to use toilet was complaining of left ankle pain. Able to bear weight on the affected ankle. No chest or abdominal pain, no shortness of breath. No diarrhea. Review of Systems Review of Systems: All systems reviewed & are unremarkable except as noted in HPI & below Respiratory: + cough; no dyspnea Cardiovascular: no chest pain, no palpitations and no edema Gastrointestinal: no abdominal pain, no constipation and no diarrhea/loose stools Physical Exam Constitutional: WD/WN, vitals as above Eyes: + anicteric sclerae; no conjunctival abnormality ENMT: external ear and nose normal, oropharynx normal Neck: + short neck and + thick neck Respiratory: normal respiratory effort, coarse lung sounds Cardiovascular: Rate/Rhythm: regular rate and regular rhythm Gastrointestinal (Abdomen): Inspection/Auscultation: abdomen not distended Percussion/Palpation: abdomen soft; abdomen nontender Musculoskeletal: negative for edema, peripheral pulses intact L ankle without ecchymosis, erythema. Mildly tender to palpation at lateral malleolus area Skin: no rashes, warm and dry Neurologic: awake (appears to be at baseline mental status which is minimally conversive,alert); not confused Psychiatric: euthymic affect, alert. At baseline mental status Results & Data Results & Data ([facility]) Vital Signs (Past 12 Hours) Vital Signs Temp Pulse Resp BP Pulse Ox 08/11/20 05:25 111 H 24 153/93 H 94 08/11/20 05:00 37.0 C 08/11/20 04:28 107 H 31 H 120/87 98 08/11/20 03:28 109 H 14 132/94 98 08/11/20 02:28 37.3 C 112 H 15 140/88 90 08/11/20 01:28 37.5 C 108 H 29 H 132/91 96 08/11/20 00:28 37.6 C H 109 H 27 H 134/87 96 08/10/20 23:29 37.5 C 117 H 23 132/79 96 08/10/20 22:28 37.9 C H 115 H 28 H 117/73 95 08/10/20 21:28 38.0 C H 127 H 20 133/84 95 08/10/20 20:28 38.1 C H 136 H 22 114/79 93 08/10/20 19:28 38.2 C H 142 H 28 H 139/70 95 Resident Activity Tracking Resident Involvement: Resident Care Provided Care Provided: Adult Hospital Medicine
[2020-08-11] MEDS: ENOXAPARIN INJ 40 MG/0.4 ML SYR SQ SCH (07:16)
[2020-08-11] MEDS: BENZTROPINE MESYLATE 1 MG TAB PO SCH ×3 (07:16→20:40)
[2020-08-11] MEDS: OXcarbazepine 150 MG TABLET PO SCH ×3 (07:17→20:40)
--- NOTE | 2020-08-11 08:45 | XRay Report ---
XR ankle LT min 3V routine CLINICAL HISTORY: Left ankle pain. COMPARISON: Left foot radiographs April 09, 2011. FINDINGS: Alignment of the left ankle is anatomic. There is no acute fracture. There is no osseous le andreea. Talar dome is intact. Joint spaces are preserved. IMPRESSION: No osseous abnormality of the left ankle. ACT 112: Negative or not required by law. Electronically signed by: Manuel Arreguin M.D. 08/11/2020 8:44 AM
[2020-08-11] MEDS: ACETAMINOPHEN 325 MG TAB PO PRN (09:31)
--- NOTE | 2020-08-11 09:49 | Hospitalist Progress Note ---
Date of Service August 11, 2020 Assessment & Plan (1) Aspiration into airway: (1) Aspiration into airway: Guerrero Telles is a 40yo M with a PMHx of impaired glucose, schizophrenia, HAIDER, depression, GERD, and impaired communication who presents after a fall with concern for an aspiration event. Respiratory Distress 2/2 Suspected Aspiration Event with retained bronchial/tracheal debris - CT-C shows distal trachea and L and R mainstem bronchus debris consistent with aspiration. - Increased work of breathing on admission with tachycardia and tachypnea - Intubated by Anesthesia in ED on 08/09 ABG on admission 7.3 //28 consistent with primary respiratory acidosis with underlying secondary metabolic alkalosis without acidemia Troponin negative Covid, flu negative TSH WNL Extubated 08/10 AM and tolerating Ongoing fevers WBC WNL Patient remains on room air on 08/11. Will transfer out of ICU to med/surg tele. Zosyn on admission -> unasyn 08/10 as per ICU will continue antibiotic. (2) HAIDER (obstructive sleep apnea): (3) Chest pain due to GERD: (4) Schizophrenia: -Aripiprazole and benztropine held for n.p.o. with intubation Lives in a long-term at [facility] (5) Hypertension: (6) Impaired fasting glucose: - Hold oral antiglycemics (7) Depression: -Fluvoxamine started back. (8) Anxiety state, unspecified: (9) Gastroesophageal reflux disease: - Protonix 40mg daily IV (10) Hyperlipidemia: (11) DVT prophylaxis: As per ICU Admission and Anticipated Discharge Date Admission Date: August 09, 2020 Subjective Patient does not verbalize any new complaints. He does appear improved as he gave me a thumbs up. Will transfer to med/surg tele. Review of Systems Review of Systems: All systems reviewed & are unremarkable except as noted in HPI & below Physical Exam Physical Exam: Constitutional: WD/WN, vitals as above Eyes: normal visual gomez by confrontation and + anicteric sclerae Neck: normal visual inspection and trachea midline Respiratory: normal respiratory effort, lungs clear to auscultation course lung sounds Cardiovascular: Rate/Rhythm: regular rate and regular rhythm Gastrointestinal (Abdomen): Inspection/Auscultation: abdomen not distended Percussion/Palpation: abdomen soft; abdomen nontender Musculoskeletal: Head/Neck/Chest: normocephalic and head atraumatic negative for edema, peripheral pulses intact Skin: no rashes, warm and dry Neurologic: awake; not confused Psychiatric: A+Ox3, euthymic affect Results & Data Results & Data ([facility]) Vital Signs (Past 12 Hours) Vital Signs Temp Pulse Resp BP Pulse Ox 08/11/20 08:28 109 H 28 H 129/89 93 08/11/20 08:00 113 H 20 95 08/11/20 07:28 105 H 19 161/100 H 93 08/11/20 07:00 36.6 C 105 H 31 H 93 08/11/20 05:25 111 H 24 153/93 H 94 08/11/20 05:00 37.0 C 08/11/20 04:28 107 H 31 H 120/87 98 08/11/20 03:28 109 H 14 132/94 98 08/11/20 02:28 37.3 C 112 H 15 140/88 90 08/11/20 01:28 37.5 C 108 H 29 H 132/91 96 08/11/20 00:28 37.6 C H 109 H 27 H 134/87 96 08/10/20 23:29 37.5 C 117 H 23 132/79 96 08/10/20 22:28 37.9 C H 115 H 28 H 117/73 95 PG Care Time/CCT Total # of Minutes Spent Total Time Spent with Patient: Total time spent is greater than 50% in coordination of care (as documented) at patient's floor/unit and/or counseling patient: Coding Level of Care Code 99136 Subseq Hosp Care Lvl 3 Diagnoses Aspiration into airway T17.908A HAIDER (obstructive sleep apnea) G47.33 Chest pain due to GERD R07.9; K21.9 Schizophrenia F20.9 Hypertension I10 Impaired fasting glucose R73.01 Depression F32.9 Anxiety state, unspecified F41.1 Gastroesophageal reflux disease K21.9 Hyperlipidemia E78.5 DVT prophylaxis Z29.9 Time Spent (min) 35
[2020-08-11] MEDS: PANTOprazole 40 MG in SYRINGE 0 ML IV SCH (11:19)
--- NOTE | 2020-08-11 14:02 | Billing Data ---
Date of Service August 11, 2020 Coding Level of Care Code 08005 Subseq Hosp Care Lvl 3
[2020-08-11] MEDS: AMOXICILLIN/CLAVULANATE 875 MG TAB PO SCH (20:40)
[2020-08-11] MEDS: ARIPiprazole 15 MG TAB PO SCH (20:40)
[2020-08-11] MEDS: fluvoxaMINE MALEATE 50 MG TAB PO SCH (20:40)
[2020-08-12 05:06] LABS: Basophils # (auto) 0.02 K/uL (0-0.2); Basophils % (auto) 0.2 %; Eosinophils # (auto) 0.31 K/uL (0-0.5); Hematocrit (blood only) 38.2 % (42-52); Hemoglobin 12.6 g/dL (14.0-18.0); Immature Granulocytes # (auto) 0.07 K/uL (0.00-0.02); Immature Granulocytes % (auto) 0.7 %; Lymphocytes # (auto) 2.57 K/uL (1.2-3.4); Mean Corpuscular Hemoglobin 30.2 pg (25-34); Mean Corpuscular Volume 91.6 fL (80-100); Mean Platelet Volume 9.2 fL (7.4-10.4); Monocytes # (auto) 0.74 K/uL (0.11-0.59); Monocytes % (auto) 7.2 %; Neutrophils # (auto) 6.55 K/uL (1.4-6.5); Neutrophils % (auto) 63.9 %; Platelet Count 189 K/uL (130-400); RDW Coefficient of Variation 13.1 % (11.5-14.5); RDW Standard Deviation 43.4 fL (36.4-46.3); Red Blood Count 4.17 M/uL (4.7-6.1); White Blood Count 10.26 K/uL (4.8-10.8)
[2020-08-12 05:40] LABS: BUN Creatinine Ratio 12.3 (10-20); Calcium 9.1 mg/dl (8.5-10.1); Creatinine Clr Calc Pharmacy 127.3 ml/min; Est GFR (African American) 129.4; Est GFR (Non-African American) 111.6; Potassium 3.7 mmol/L (3.5-5.1)
[2020-08-12 05:41] LABS: Phosphorus 3.5 mg/dl (2.5-4.9)
[2020-08-12] MEDS: PANTOprazole 40 MG TAB PO SCH (07:36)
[2020-08-12] MEDS: BENZTROPINE MESYLATE 1 MG TAB PO SCH ×3 (07:36→23:33)
[2020-08-12] MEDS: hydroCHLOROthiazide 25 MG TAB PO SCH (07:37)
[2020-08-12] MEDS: AMOXICILLIN/CLAVULANATE 875 MG TAB PO SCH ×2 (07:37→22:21)
[2020-08-12] MEDS: ENOXAPARIN INJ 40 MG/0.4 ML SYR SQ SCH (07:38)
[2020-08-12] MEDS: OXcarbazepine 150 MG TABLET PO SCH ×3 (07:39→22:21)
[2020-08-12] MEDS: ACETAMINOPHEN 325 MG TAB PO PRN ×2 (07:59→21:24)
[2020-08-12] MEDS: fluvoxaMINE MALEATE 50 MG TAB PO SCH (22:21)
[2020-08-12] MEDS: ARIPiprazole 15 MG TAB PO SCH (22:21)
--- NOTE | 2020-08-12 22:39 | Hospitalist Progress Note ---
Date of Service August 12, 2020 Assessment & Plan (1) Aspiration into airway: (1) Aspiration into airway: Guerrero Telles is a 40yo M with a PMHx of impaired glucose, schizophrenia, HAIDER, depression, GERD, and impaired communication who presents after a fall with concern for an aspiration event. Respiratory Distress 2/2 Suspected Aspiration Event with retained bronchial/tracheal debris - CT-C shows distal trachea and L and R mainstem bronchus debris consistent with aspiration. - Increased work of breathing on admission with tachycardia and tachypnea - Intubated by Anesthesia in ED on 08/09 -resolved. Will continue augmentin. ABG on admission 7.3 //28 consistent with primary respiratory acidosis with underlying secondary metabolic alkalosis without acidemia Troponin negative Covid, flu negative TSH WNL Extubated 08/10 AM and tolerating fevers have subsided. WBC WNL Patient remains on room air on 08/11. tolerating well on med surg/ removed link Zosyn on admission -> unasyn 08/10 as per ICU will continue antibiotic. (2) HAIDER (obstructive sleep apnea): (3) Chest pain due to GERD: (4) Schizophrenia: -Aripiprazole and benztropine held for n.p.o. with intubation Lives in a ch[facility] at [facility] (5) Hypertension: (6) Impaired fasting glucose: - Hold oral antiglycemics (7) Depression: -Fluvoxamine started back. (8) Anxiety state, unspecified: (9) Gastroesophageal reflux disease: - Protonix 40mg daily IV (10) Hyperlipidemia: (11) DVT prophylaxis: heparin Admission and Anticipated Discharge Date Admission Date: August 09, 2020 Subjective 40 yo male reports feeling well. He has no new complaints at this time. Review of Systems Review of Systems: All systems reviewed & are unremarkable except as noted in HPI & below Physical Exam Physical Exam: Constitutional: WD/WN, vitals as above Eyes: normal visual gomez by confrontation and + anicteric sclerae Neck: normal visual inspection and trachea midline Respiratory: normal respiratory effort, lungs clear to auscultation course lung sounds Cardiovascular: Rate/Rhythm: regular rate and regular rhythm Gastrointestinal (Abdomen): Inspection/Auscultation: abdomen not distended Percussion/Palpation: abdomen soft; abdomen nontender Musculoskeletal: Head/Neck/Chest: normocephalic and head atraumatic negative for edema, peripheral pulses intact Skin: no rashes, warm and dry Neurologic: awake; not confused Psychiatric: A+Ox3, euthymic affect Results & Data Results & Data ([facility]) Vital Signs (Past 12 Hours) Vital Signs Temp Pulse Resp BP Pulse Ox 08/12/20 19:20 37.1 C 93 H 20 134/89 95 08/12/20 14:58 36.9 C 95 H 18 135/89 95 PG Care Time/CCT Total # of Minutes Spent Total Time Spent with Patient: Total time spent is greater than 50% in coordination of care (as documented) at patient's floor/unit and/or counseling patient: Coding Level of Care Code 13483 Subseq Hosp Care Lvl 3 Diagnoses Aspiration into airway T17.908A HAIDER (obstructive sleep apnea) G47.33 Chest pain due to GERD R07.9; K21.9 Schizophrenia F20.9 Hypertension I10 Impaired fasting glucose R73.01 Depression F32.9 Anxiety state, unspecified F41.1 Gastroesophageal reflux disease K21.9 Hyperlipidemia E78.5 DVT prophylaxis Z29.9 Time Spent (min) 35
[2020-08-13] MEDS: BENZTROPINE MESYLATE 1 MG TAB PO SCH (08:12)
[2020-08-13] MEDS: AMOXICILLIN/CLAVULANATE 875 MG TAB PO SCH (08:12)
[2020-08-13] MEDS: OXcarbazepine 150 MG TABLET PO SCH (08:12)
[2020-08-13] MEDS: ACETAMINOPHEN 325 MG TAB PO PRN (08:14)
[2020-08-13] MEDS: PANTOprazole 40 MG TAB PO SCH (08:16)
--- NOTE | 2020-08-13 08:25 | Ultrasound Report ---
LEFT LOWER EXTREMITY VENOUS DOPPLER CLINICAL HISTORY: ?DVT. Left knee pain. COMPARISON STUDY: No previous studies for comparison. TECHNIQUE: Sonography of the deep venous system of the left lower extremity was performed. Compressi on and augmentation were evaluated. FINDINGS: The left common femoral, superficial femoral and popliteal veins were compressible. Augmen tation was normal. Flow was shown within the deep calf vessels. IMPRESSION: No evidence of deep venous thrombus within the left lower extremity. ACT 112: Negative or not required by law. Electronically signed by: Manuel Arreguin M.D. 08/13/2020 8:24 AM
[2020-08-13] MEDS: ENOXAPARIN INJ 40 MG/0.4 ML SYR SQ SCH (11:59)
[2020-08-13] MEDS: hydroCHLOROthiazide 25 MG TAB PO SCH (12:00)
--- NOTE | 2020-08-23 15:58 | Discharge Summary ---
Date of Service August 13, 2020 Admission HPI Per Admitting Provider Guerrero Telles is a 40yo M with a PMHx of impaired glucose, schizophrenia, HAIDER, depression, GERD, and impaired communication who presents after a fall with concern for an aspiration event. Pt is minimally conversational at baseline. History is collected with the assistance of his mother who is present at bedside. She reports that Guerrero lives at [facility] in a trailer. A thud was heard and he was found to have fallen ~1:30am. He appeared more confused, with grunting breathing, and was weak with difficulty standing. She reports he frequently gets up during the night to eat normally. Per his mothers report he has not been ill lately and has not had fevers, chills, cough, diarrhea, constipation, abdominal pain, congestion, or other symptoms prior to this. No difficult breathing. No sick contacts. [place] [facility] [place] [facility] [place] separate from the rest of the home where COVID positive cases have been. His roommate has not had any symptoms or COVID. Medhx reviewed SHx reviewed FHx noncontributory Allergies reviewed SOcial: No tobacco, alcohol, or recreational drug use. Living situation as above CODE STATUS: Conditional code. No chest compressions in event of an arrest. WOULD WANT respiratory support and intubation as indicated for resp distress. Would want ACLS medications and shock if indicated per pt's mother. Principal Diagnosis aspiration pneumonia Discharge Exam Constitutional: WD/WN, vitals as above Eyes: normal visual gomez by confrontation and + anicteric sclerae Neck: normal visual inspection and trachea midline Respiratory: normal respiratory effort, lungs clear to auscultation course lung sounds Cardiovascular: Rate/Rhythm: regular rate and regular rhythm Gastrointestinal (Abdomen): Inspection/Auscultation: abdomen not distended Percussion/Palpation: abdomen soft; abdomen nontender Musculoskeletal: Head/Neck/Chest: normocephalic and head atraumatic negative for edema, peripheral pulses intact Skin: no rashes, warm and dry Neurologic: awake; not confused Psychiatric: A+Ox3, euthymic affect Discharge Data Allergies Allergy/AdvReac Type Severity Reaction Status Date / Time lactose Allergy Unknown Unknown Verified 08/17/20 14:03 pollen extracts Allergy Unknown Unknown Verified 08/17/20 14:03 Consultations 08/09/20 03:53 ED Decision to Admit Stat 08/09/20 07:02 ED Decision to Admit Stat 08/09/20 07:07 Consult Case Management - Discharge Planning Routine Consult [employer] Routine Ordered Studies 08/09/20 01:44 CT head/brain wo con Urgent 08/09/20 01:47 CT angio chest PE protocol Urgent 08/12/20 23:44 US venous doppler LE LT Urgent Hospital Course (1) Aspiration into airway: (1) Aspiration into airway: Guerrero Telles is a 40yo M with a PMHx of impaired glucose, schizophrenia, HAIDER, depression, GERD, and impaired communication who presents after a fall with concern for an aspiration event. Respiratory Distress 2/2 Suspected Aspiration Event with retained bronchial/tracheal debris - CT-C shows distal trachea and L and R mainstem bronchus debris consistent with aspiration. - Increased work of breathing on admission with tachycardia and tachypnea - Intubated by Anesthesia in ED on 08/09 -resolved. Will finish course with augmentin at discharge.. ABG on admission 7.3 // consistent with primary respiratory acidosis with underlying secondary metabolic alkalosis without acidemia Troponin negative Covid, flu negative TSH WNL Extubated 08/10 AM and tolerating fevers have subsided. WBC WNL Patient remains on room air on 08/11. tolerating well on med surg/ removed link Zosyn on admission -> unasyn 08/10 as per ICU will continue antibiotic. (2) HAIDER (obstructive sleep apnea): (3) Chest pain due to GERD: (4) Schizophrenia: -Aripiprazole and benztropine held for n.p.o. with intubation Lives in a jail at [facility] (5) Hypertension: (6) Impaired fasting glucose: - resume oral antiglycemics (7) Depression: -Fluvoxamine started back. (8) Anxiety state, unspecified: (9) Gastroesophageal reflux disease: - Protonix 40mg daily IV (10) Hyperlipidemia: (11) DVT prophylaxis: heparin Total Time Total Time Spent Total Time Spent (In Minutes): 32 Total Time Includes: Examination of the Patient, Discharge Planning and Medicati on Reconciliation Discharge Plan Discharge Items Patient Disposition: Home - Home Health Services Reason For Visit: ASPIRATION,LANDEN BLOCK IN L MAINSTEM Discharge Diagnosis: aspiration Activity: Resume your previous activity Non-emergency contact: Primary Care Provider Call non-emergency contact if: you have any medication questions Follow-up/Referrals: Elijah Henderson MD [Primary Care Provider] - 08/17/20 2:15 pm (You have a follow up appt with your PCP on Friday 08/17 at 215pm. Please arrive 15 minutes prior to your appt. It is important that you keep your appt, if this appt does not fit your schedule please call [phone] to [facility]. ) Diet: Carb Consistent or DM2 Addtl Attending Provider Instructions: You have been hospitalized for an acute medical problem. During your stay at [facility], we have made an effort to correct the problem that brought you to the hospital while keeping you as comfortable as possible. Medications were used to bring your condition under control and your discharge instructions will include directions for any medications you should take after leaving the hospital. Please make sure you see your Primary Care Provider as part of your follow up plan. F/U with PCP in 1-2 weeks for ankle pain Pending Studies at Discharge: No Stand-Alone Forms: My [facility], Smoking Cessation Medications and DC Order Prescriptions: New amoxicillin-pot clavulanate [Augmentin] 875-125 mg tablet 1 tab PO BID Qty: 8 RF: 0 Continued acetaminophen [Tylenol] 325 mg capsule 325 mg PO Q8H PRN (Reason: fever or pain) Qty: 90 RF: 0 omeprazole 40 mg capsule,delayed release(DR/EC) 40 mg PO DAILY Qty: 90 RF: 3 (DME) blood sugar diagnostic [OneTouch Verio test strips] Strip See Rx Instructions .ROUTE .MEDSUPPLY Qty: 50 RF: 5 loperamide [Imodium A-D] 2 mg capsule 2 mg PO Q4H PRN (Reason: loose stool) Qty: 60 RF: 2 Januvia 25 mg tablet 25 mg PO DAILY Qty: 90 RF: 3 sucralfate [Carafate] 1 gram tablet 1 g PO TID Qty: 360 RF: 3 oxcarbazepine 600 mg tablet 600 mg PO TID RF: 0 (DME) CPAP Machine Misc See Rx Instructions .ROUTE .MEDSUPPLY Qty: 1 RF: 0 aripiprazole [Abilify] 30 mg tablet 30 mg PO HS RF: 0 benztropine 1 mg tablet 1 mg PO TID RF: 0 melatonin 3 mg tablet 3 mg PO HS RF: 0 multivitamin [Daily Multi-Vitamin] tablet 1 tab PO DAILY RF: 0 (DME) lancets [OneTouch Delica Lancets] 33 gauge misc See Rx Instructions .ROUTE .MEDSUPPLY Qty: 100 RF: 3 ondansetron HCl 8 mg Tablet 8 mg PO Q8H PRN (Reason: Nausea) RF: 0 lisinopril 10 mg Tablet 10 mg PO DAILY RF: 0 docusate sodium [Stool Softener] 100 mg Capsule 100 mg PO DAILY PRN (Reason: Constipation) RF: 0 fluvoxamine 50 mg Tablet 50 mg PO HS RF: 0 hydrochlorothiazide 12.5 mg Tablet 12.5 mg PO QAM RF: 0 No Action albuterol sulfate 0.63 mg/3 mL solution for nebulization 0.63 mg inhalation Q4H PRN (Reason: bronchospasm) Qty: 90 RF: 3 Discharge Orders: Discharge Order (Routine); Ordered 08/13/20 Ordered By: Martín Kwon Admission Data Admit Date/Time: 08/09/20 05:32 Attending Provider: Martín Kwon Admit Provider: Nic Meyer Primary Care Provider: Elijah Henderson Other Providers: Juaquin Sarkar ; Rubén Tolentino Other Interventions: Discharge Summary Assessment (RN) Last Done: 08/13/20 11:44 Coding Level of Care Code D/C Day Management >30 mins Diagnoses Aspiration into airway T17.908A HAIDER (obstructive sleep apnea) G47.33 Chest pain due to GERD R07.9; K21.9 Schizophrenia F20.9 Hypertension I10 Impaired fasting glucose R73.01 Depression F32.9 Anxiety state, unspecified F41.1 Gastroesophageal reflux disease K21.9 Hyperlipidemia E78.5 DVT prophylaxis Z29.9 Time Spent (min) 32
== END 2020-08-13 12:18 | disposition home health service (06) | DRG 208 ==
LOC: ED 01:22 → 1E 05:32 → SUATTDRO 05:32 → 1E 06:41 → 2N 08-11 09:43

== ENCOUNTER 2020-10-06 09:43 | Inpatient (IN) ==
[2020-10-06] MEDS ORDERED: DEXAMETHASONE SOD INJ 10 MG/ML VIAL IV ONE (10:24)
--- NOTE | 2020-10-06 10:24 | Emergency Department Note ---
History of Present Illness General Chief complaint: Fever Stated complaint: FEVER Time Seen by Provider: 10/06/20 09:55 Source: patient Mode of arrival: ambulatory Limitations: no limitations History of Present Illness Maximum Pain Intensity: 0 This patient is a 40-year-old male who presents to the emergency department accompanied by his mother for evaluation of a fever. Mother reports that he first became ill about 12 days ago. He was residing in a [facility]ci at that time but was sent home with his mother. She had him to the emergency department about 6 days ago and he had a positive COVID test. She states that he still has been having fevers at home and seems to be having difficulty breathing. She has been giving him nebulizers without improvement. Patient has been complaining of some difficulty breathing. She has been giving him Tylenol and Mucinex at home for symptoms. She denies any history of chronic lung disease in the patient. Of note, patient did have an admission in August for aspiration pneumonia. Home Medications Medication Instructions Recorded Confirmed Type aripiprazole 30 mg tablet 30 mg PO QAM 04/06/19 10/06/20 History benztropine 1 mg tablet 1 mg PO TID 04/06/19 10/06/20 History melatonin 3 mg tablet 3 mg PO HS 04/06/19 10/06/20 History multivitamin 1 tab PO DAILY 04/06/19 10/06/20 History oxcarbazepine 600 mg tablet 600 mg PO TID tab 07/23/19 10/06/20 History acetaminophen 325 mg capsule 325 mg PO Q8H PRN #90 cap 11/12/19 10/06/20 Rx omeprazole 40 mg capsule,delayed 40 mg PO DAILY #90 cap 05/18/20 10/06/20 Rx release loperamide 2 mg capsule 2 mg PO Q4H PRN #60 cap 05/22/20 10/06/20 Rx sitagliptin 25 mg tablet 25 mg PO DAILY #90 tab 07/15/20 10/06/20 Rx fluvoxamine 50 mg PO HS 08/09/20 10/06/20 History hydrochlorothiazide 12.5 mg PO QAM 08/09/20 10/06/20 History lisinopril 10 mg PO QAM 08/09/20 10/06/20 History ondansetron HCl 8 mg PO Q8H PRN 08/09/20 10/06/20 History sucralfate 1 gram tablet 1 g PO TID #360 tab 08/10/20 10/06/20 Rx albuterol sulfate 0.63 mg/3 mL 0.63 mg INHALATION Q4H PRN #90 ml 09/02/20 10/06/20 Rx solution for nebulization diclofenac sodium 4 g TOPICAL QID 10/06/20 10/06/20 History lactase [Lactaid Fast Act] 9,000 unit PO AC PRN 10/06/20 10/06/20 History loratadine 10 mg PO DAILY PRN 10/06/20 10/06/20 History Allergies Allergy/AdvReac Type Severity Reaction Status Date / Time lactose Allergy Unknown Unknown Verified 10/06/20 11:25 pollen extracts Allergy Unknown Unknown Verified 10/06/20 11:25 Past Med/Surg History Medical History (Updated 10/06/20 @ 14:08 by John Chin MD) Abdominal pain Anxiety state, unspecified (03/19/13) Bipolar depression Esophageal dysfunction Gastroesophageal reflux disease (02/12/13) History of ulcerative colitis Insomnia Intermittent explosive disorder Kidney stone (03/19/13) Lactose intolerance Learning disabilities OCD (obsessive compulsive disorder) Oppositional defiant disorder (03/19/13) Psychosis Scoliosis Spina bifida occulta Tachycardia Surgical History Surgical history unknown Family History Father Hypertension Grandmother (Maternal) Breast cancer Other Impaired fasting glucose Kidney stone Denies family history of Colon cancer Ovarian cancer Prostate cancer Myocardial infarction Social History Smoking Status: Never smoker Second Hand Exposure: No; Do You Dip or Chew Tobacco: No; Tobacco Cessation Education Requested by Patient: No Hx Alcohol Use: No Hx Substance Use: No Preferred Language: Kenyan Communication Ability: Impaired Visual Impairment: No Limitations 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: Normal General Farmer Required: No Beliefs That Will Affect Care: None marital status: Single Current Living Situation: Personal Care Facility Current Living Situation Comment: [facility] current occupational status: unemployed Other Information That Helps Us Care for You: No Feels Safe at Home: Yes Safety Concerns: Feels Safe At This Time Physical Activity Frequency: Does not Exercise Seatbelt Use: always Assistive Devices: None Review of Systems A total of 10 systems reviewed and were otherwise negative Physical Exam Vital Signs Vital Signs - 24 hr 10/06/20 09:45 10/06/20 10:11 10/06/20 10:43 Temperature 36.6 C Temperature Source Temporal Artery Scan Pulse Rate 113 H 113 H Pulse Rate [Apical] Pulse Rate from SpO2 Sensor 112 H Pulse Rhythm [Apical] Pulse Strength [Apical] Respiratory Rate 20 23 Respiratory Effort / Characteristics Non-Labored Spontaneous Respiratory Depth Normal Respiratory Pattern Regular Blood Pressure 120/82 138/107 H Blood Pressure [Right Arm] Blood Pressure Mean 94 125 Blood Pressure Mean [Right Arm] Blood Pressure Position Sitting Blood Pressure Position [Right Arm] Pulse Oximetry 91 86 L 96 Oxygen Delivery Method Room Air Room Air Oxygen Flow Rate Sepsis Recent Fever Within 48 Hours No Sepsis New/Unexplained Change in Mental Status N/A Sepsis Action Taken by Nursing No Action Required 10/06/20 10:46 10/06/20 10:47 10/06/20 10:56 Temperature Temperature Source Pulse Rate 115 H 110 H Pulse Rate [Apical] 108 H Pulse Rate from SpO2 Sensor 114 H 225 H Pulse Rhythm [Apical] Regular Pulse Strength [Apical] Normal Respiratory Rate 23 31 H 24 Respiratory Effort / Characteristics Nasal Flaring Respiratory Depth Normal Respiratory Pattern Regular Blood Pressure 134/85 Blood Pressure [Right Arm] 134/85 Blood Pressure Mean 112 Blood Pressure Mean [Right Arm] 101 Blood Pressure Position Blood Pressure Position [Right Arm] Sitting Pulse Oximetry 94 92 94 Oxygen Delivery Method Nasal Cannula Oxygen Flow Rate 2 Sepsis Recent Fever Within 48 Hours Sepsis New/Unexplained Change in Mental Status Sepsis Action Taken by Nursing 10/06/20 11:00 10/06/20 11:01 10/06/20 11:30 Temperature Temperature Source Pulse Rate 105 H 103 H 104 H Pulse Rate [Apical] Pulse Rate from SpO2 Sensor 104 H 103 H 103 H Pulse Rhythm [Apical] Pulse Strength [Apical] Respiratory Rate 27 H 27 H 27 H Respiratory Effort / Characteristics Respiratory Depth Respiratory Pattern Blood Pressure 119/89 133/100 Blood Pressure [Right Arm] Blood Pressure Mean 105 117 Blood Pressure Mean [Right Arm] Blood Pressure Position Blood Pressure Position [Right Arm] Pulse Oximetry 94 94 94 Oxygen Delivery Method Oxygen Flow Rate Sepsis Recent Fever Within 48 Hours Sepsis New/Unexplained Change in Mental Status Sepsis Action Taken by Nursing 10/06/20 11:31 10/06/20 12:00 10/06/20 12:01 Temperature Temperature Source Pulse Rate 103 H 102 H 102 H Pulse Rate [Apical] Pulse Rate from SpO2 Sensor 103 H 101 H 101 H Pulse Rhythm [Apical] Pulse Strength [Apical] Respiratory Rate 21 27 H 29 H Respiratory Effort / Characteristics Respiratory Depth Respiratory Pattern Blood Pressure 145/92 H Blood Pressure [Right Arm] Blood Pressure Mean 108 Blood Pressure Mean [Right Arm] Blood Pressure Position Blood Pressure Position [Right Arm] Pulse Oximetry 94 95 96 Oxygen Delivery Method Oxygen Flow Rate Sepsis Recent Fever Within 48 Hours Sepsis New/Unexplained Change in Mental Status Sepsis Action Taken by Nursing 10/06/20 12:36 10/06/20 12:48 10/06/20 12:49 Temperature Temperature Source Pulse Rate 115 H 106 H 100 H Pulse Rate [Apical] Pulse Rate from SpO2 Sensor 106 H 99 H Pulse Rhythm [Apical] Pulse Strength [Apical] Respiratory Rate 20 26 H 25 H Respiratory Effort / Characteristics Respiratory Depth Respiratory Pattern Blood Pressure 134/103 H Blood Pressure [Right Arm] Blood Pressure Mean 112 Blood Pressure Mean [Right Arm] Blood Pressure Position Blood Pressure Position [Right Arm] Pulse Oximetry 95 96 Oxygen Delivery Method Oxygen Flow Rate Sepsis Recent Fever Within 48 Hours Sepsis New/Unexplained Change in Mental Status Sepsis Action Taken by Nursing VITALS: Vitals are noted on the nurse's note and reviewed by myself. Vital signs stable. GENERAL: This is a 40-year-old male, in mild distress, increased work of breathing noted. SKIN: The skin was without rashes. EARS: External auditory canals clear, tympanic membranes pearly mandujano without erythema or effusion bilaterally. EYES: Pupils equal round and reactive to light and accommodation. NOSE: Patent, turbinates without inflammation or discharge. MOUTH: Mucous membranes moist. Tonsils are not enlarged. Pharynx without erythema or exudate. NECK: Supple without nuchal rigidity. No lymphadenopathy. HEART: Regular rate and rhythm without murmurs gallops or rubs. LUNGS: Increased work of breathing noted. Lung sounds diminished throughout with expiratory wheezes in bilateral bases. ABDOMEN: Positive bowel sounds x 4. Soft, nontender to palpation. NEURO: Patient was alert and follows commands. Course Consultations Consultation #1: Dr. Chin - [facility] hospitalist Administered Medications Discontinued Medications Dexamethasone (Dexamethasone Sod Inj 10 Mg/Ml Vial) 6 mg IV NOW ONE Stop: 10/06/20 10:25 Last Admin: 10/06/20 10:59 Dose: 6 mg Documented by: [id number] Sodium Chloride (Nss 1000ml) 1,000 mls @ 999 mls/hr IV .Q1H1M ONE Stop: 10/06/20 11:28 Last Infusion: 10/06/20 12:16 Dose: 0 mls/hr Documented by: [id number] Admin: 10/06/20 10:59 Dose: 999 mls/hr Documented by: [id number] Ampicillin Sodium/Sulbactam Sodium 3,000 mg/ Sodium Chloride 108 mls @ 200 mls/hr IV NOW STA Stop: 10/06/20 11:34 Last Infusion: 10/06/20 12:17 Dose: 0 mls/hr Documented by: [id number] Admin: 10/06/20 11:20 Dose: 200 mls/hr Documented by: [id number] Ioversol (Optiray 320 125ml) 120 ml IV ONCE ONE Stop: 10/06/20 12:37 Last Admin: 10/06/20 12:36 Dose: 120 ml Documented by: [id number] Critical Care Time Critical Care Time: Yes Total Critical Care Time: 32 I have personally spent greater than 32 minutes of critical care time in the direct management of this patient. This includes bedside care, interpretation of diagnostic studies, and testing, discussion with consultants, patient, and family members, and other required patient management activities. This 32 minutes is in excess of all separately billable procedures. Medical Decision Making Differential Diagnosis Differential diagnosis includes COVID-19 pneumonia, respiratory failure, CHF, asthma exacerbation, aspiration pneumonia, PE, pleural effusion, pneumothorax, among others. Home Medications Current Medication List: was personally reviewed by me Laboratory Data Attestation: I reviewed the patient's lab results. Result diagrams: 10/06/20 10:30 10/06/20 10:30 Lab Results 10/06/20 10/06/20 10/06/20 Range/Units 10:30 10:30 10:30 WBC 6.90 (4.8-10.8) K/uL RBC 4.26 L (4.7-6.1) M/uL Hgb 12.9 L (14.0-18.0) g/dL Hct 37.4 L (42-52) % MCV 87.8 (80-100) fL MCH 30.3 (25-34) pg MCHC 34.5 (32-36) g/dL RDW Std Deviation 42.6 (36.4-46.3) fL RDW Coeff of Chilo 13.3 (11.5-14.5) % Plt Count 211 (130-400) K/uL MPV 9.0 (7.4-10.4) fL Immature Gran % (Auto) 1.7 % Neut % (Auto) 72.6 % Lymph % (Auto) 18.3 % Hays % (Auto) 7.0 % Eos % (Auto) 0.1 % Baso % (Auto) 0.3 % Neut # (Auto) 5.01 (1.4-6.5) K/uL Lymph # (Auto) 1.26 (1.2-3.4) K/uL Hays # (Auto) 0.48 (0.11-0.59) K/uL Eos # (Auto) 0.01 (0-0.5) K/uL Baso # (Auto) 0.02 (0-0.2) K/uL Immature Gran # (Auto) 0.12 H (0.00-0.02) K/uL D-Dimer 1280 H* (0-500) ug/L FEU Sodium 127 L (136-145) mmol/L Potassium 3.1 L (3.5-5.1) mmol/L Chloride 89 L (98-107) mmol/L Carbon Dioxide 32 (21-32) mmol/L Anion Gap 6.0 (3-11) BUN 12 (7-18) mg/dl Creatinine 0.86 (0.6-1.4) mg/dl Est Cr Clr Drug Dosing 116.5 ml/min Est GFR ( Amer) 127.5 Est GFR (Non-Af Amer) 110.0 BUN/Creatinine Ratio 14.4 (10-20) Glucose 138 H (70-99) mg/dl Lactate (0.4-2.0) mmol/L Calcium 9.0 (8.5-10.1) mg/dl Ferritin (8-388) ng/ml Total Bilirubin 0.4 (0.2-1) mg/dl AST 38 H (15-37) U/L ALT 34 (12-78) U/L Alkaline Phosphatase 100 (45-117) U/L Lactate Dehydrogenase (87-241) U/L Total Creatine Kinase (39-308) U/L Troponin I < 0.015 (0-0.045) ng/ml C-Reactive Protein (0-0.29) mg/dl Total Protein 7.1 (6.4-8.2) gm/dl Albumin 3.0 L (3.4-5.0) gm/dl Globulin 4.1 H (2.5-4.0) gm/dl Albumin/Globulin Ratio 0.7 L (0.9-2) Procalcitonin (0-0.5) ng/ml Influ A Molecular Assay (Negative) Influ B Molecular Assay (Negative) Blood Type Antibody Screen 10/06/20 10/06/20 10/06/20 Range/Units 10:30 10:30 10:30 WBC (4.8-10.8) K/uL RBC (4.7-6.1) M/uL Hgb (14.0-18.0) g/dL Hct (42-52) % MCV (80-100) fL MCH (25-34) pg MCHC (32-36) g/dL RDW Std Deviation (36.4-46.3) fL RDW Coeff of Chilo (11.5-14.5) % Plt Count (130-400) K/uL MPV (7.4-10.4) fL Immature Gran % (Auto) % Neut % (Auto) % Lymph % (Auto) % Hays % (Auto) % Eos % (Auto) % Baso % (Auto) % Neut # (Auto) (1.4-6.5) K/uL Lymph # (Auto) (1.2-3.4) K/uL Hays # (Auto) (0.11-0.59) K/uL Eos # (Auto) (0-0.5) K/uL Baso # (Auto) (0-0.2) K/uL Immature Gran # (Auto) (0.00-0.02) K/uL D-Dimer (0-500) ug/L FEU Sodium (136-145) mmol/L Potassium (3.5-5.1) mmol/L Chloride (98-107) mmol/L Carbon Dioxide (21-32) mmol/L Anion Gap (3-11) BUN (7-18) mg/dl Creatinine (0.6-1.4) mg/dl Est Cr Clr Drug Dosing ml/min Est GFR ( Amer) Est GFR (Non-Af Amer) BUN/Creatinine Ratio (10-20) Glucose (70-99) mg/dl Lactate 1.3 (0.4-2.0) mmol/L Calcium (8.5-10.1) mg/dl Ferritin 609.2 H (8-388) ng/ml Total Bilirubin (0.2-1) mg/dl AST (15-37) U/L ALT (12-78) U/L Alkaline Phosphatase (45-117) U/L Lactate Dehydrogenase 339 H (87-241) U/L Total Creatine Kinase 504 H (39-308) U/L Troponin I (0-0.045) ng/ml C-Reactive Protein 13.40 H (0-0.29) mg/dl Total Protein (6.4-8.2) gm/dl Albumin (3.4-5.0) gm/dl Globulin (2.5-4.0) gm/dl Albumin/Globulin Ratio (0.9-2) Procalcitonin (0-0.5) ng/ml Influ A Molecular Assay (Negative) Influ B Molecular Assay (Negative) Blood Type Antibody Screen 10/06/20 10/06/20 10/06/20 Range/Units 10:30 10:32 12:00 WBC (4.8-10.8) K/uL RBC (4.7-6.1) M/uL Hgb (14.0-18.0) g/dL Hct (42-52) % MCV (80-100) fL MCH (25-34) pg MCHC (32-36) g/dL RDW Std Deviation (36.4-46.3) fL RDW Coeff of Chilo (11.5-14.5) % Plt Count (130-400) K/uL MPV (7.4-10.4) fL Immature Gran % (Auto) % Neut % (Auto) % Lymph % (Auto) % Hays % (Auto) % Eos % (Auto) % Baso % (Auto) % Neut # (Auto) (1.4-6.5) K/uL Lymph # (Auto) (1.2-3.4) K/uL Hays # (Auto) (0.11-0.59) K/uL Eos # (Auto) (0-0.5) K/uL Baso # (Auto) (0-0.2) K/uL Immature Gran # (Auto) (0.00-0.02) K/uL D-Dimer (0-500) ug/L FEU Sodium (136-145) mmol/L Potassium (3.5-5.1) mmol/L Chloride (98-107) mmol/L Carbon Dioxide (21-32) mmol/L Anion Gap (3-11) BUN (7-18) mg/dl Creatinine (0.6-1.4) mg/dl Est Cr Clr Drug Dosing ml/min Est GFR ( Amer) Est GFR (Non-Af Amer) BUN/Creatinine Ratio (10-20) Glucose (70-99) mg/dl Lactate (0.4-2.0) mmol/L Calcium (8.5-10.1) mg/dl Ferritin (8-388) ng/ml Total Bilirubin (0.2-1) mg/dl AST (15-37) U/L ALT (12-78) U/L Alkaline Phosphatase (45-117) U/L Lactate Dehydrogenase (87-241) U/L Total Creatine Kinase (39-308) U/L Troponin I (0-0.045) ng/ml C-Reactive Protein (0-0.29) mg/dl Total Protein (6.4-8.2) gm/dl Albumin (3.4-5.0) gm/dl Globulin (2.5-4.0) gm/dl Albumin/Globulin Ratio (0.9-2) Procalcitonin 0.22 (0-0.5) ng/ml Influ A Molecular Assay Negative (Negative) Influ B Molecular Assay Negative (Negative) Blood Type A Negative Antibody Screen NEGATIVE Imaging Data Attestation: I personally reviewed and interpreted this imaging study as follows: Radiologist's Impression: XR chest 1V portable FINDINGS: The heart is mildly enlarged. There are moderately extensive bilateral pulmonary airspace opacities consistent with a multifocal pneumonia. There are no significant pleural effusions.[ IMPRESSION: Interval development of moderately extensive bilateral pulmonary airspace opacities consistent with a multifocal pneumonia. CT ANGIOGRAM OF THE CHEST FINDINGS: There are mildly prominent mediastinal and hilar lymph nodes, likely reactive. There was no evidence of thoracic aortic dilatation. The study demonstrates significant motion artifact. There are no pulmonary artery filling defects to indicate acute pulmonary embolism. No pleural effusions are visualized. There are extensive bilateral multifocal groundglass pulmonary opacities consistent with a multifocal pneumonia. The findings are consistent with although not specific for Covid 19 pneumonia IMPRESSION: 1. Moderate respiratory motion artifact 2. No evidence of acute pulmonary embolism given the technical limitations of the study 3. Mild adenopathy likely reactive 4. Moderately extensive multifocal groundglass pulmonary opacities consistent with a multifocal pneumonia ECG Data Attestation: I personally reviewed and interpreted this ECG as follows: Indication: + SOB/dyspnea Rate (beats per minute): 104 Rhythm: + sinus tachycardia ECG Intervals/blocks: + Normal QRS ECG ST segments: + Normal ST segments Change: no significant change MDM Narrative The patient is a 40-year-old male who presents today complaining of worsening shortness of breath. Patient with a recent COVID-19 diagnosis. He appears to be more short of breath today. He was 90 to 91% on room air, however with very little ambulation dropped to 86%. He was placed on 2 L of oxygen via nasal cannula. Chest x-ray shows extensive bilateral opacities consistent with multifocal pneumonia. CT angio of the chest was performed due to elevated D- dimer and shows the same. Fortunately there were no PEs. No leukocytosis, patient found to be hyponatremic with sodium of 127. Potassium 3.1, chloride 89. Troponin was not elevated. Patient was given 1 L of IV fluids and 6 mg dexamethasone. I did cover him with a dose of Unasyn due to a history of aspiration pneumonia on his most recent hospitalization. Blood cultures were drawn prior to this. The case was discussed with the [facility] hospitalist service, who agreed to evaluate the patient for further care. Impression & Plan Acute respiratory failure with hypoxia, Pneumonia due to COVID-19 virus Discharge Plan Visit Data Chief Complaint: Fever Stated Complaint: FEVER ED Provider: Carmelo Hunter ED Midlevel Provider: Ynes Salvador Discharge Problem: Acute respiratory failure with hypoxia, Pneumonia due to COVID-19 virus
[2020-10-06] MEDS ORDERED: SODIUM CHLORIDE 0.9% 1000ML 1,000 ML IV ONE (10:28)
[2020-10-06 10:42] LABS: Basophils # (auto) 0.02 K/uL (0-0.2); Basophils % (auto) 0.3 %; Eosinophils # (auto) 0.01 K/uL (0-0.5); Eosinophils % (auto) 0.1 %; Hematocrit (blood only) 37.4 % (42-52); Hemoglobin 12.9 g/dL (14.0-18.0); Immature Granulocytes # (auto) 0.12 K/uL (0.00-0.02); Immature Granulocytes % (auto) 1.7 %; Lymphocytes # (auto) 1.26 K/uL (1.2-3.4); Lymphocytes % (auto) 18.3 %; Mean Corpuscular Hemoglobin 30.3 pg (25-34); Mean Corpuscular Hgb Conc 34.5 g/dL (32-36); Mean Corpuscular Volume 87.8 fL (80-100); Monocytes # (auto) 0.48 K/uL (0.11-0.59); Neutrophils # (auto) 5.01 K/uL (1.4-6.5); Neutrophils % (auto) 72.6 %; Platelet Count 211 K/uL (130-400); RDW Coefficient of Variation 13.3 % (11.5-14.5); RDW Standard Deviation 42.6 fL (36.4-46.3); Red Blood Count 4.26 M/uL (4.7-6.1)
--- NOTE | 2020-10-06 10:56 | XRay Report ---
XR chest 1V portable CLINICAL HISTORY: covid+, hypoxic COMPARISON STUDY: 09/29/2020 FINDINGS: The heart is mildly enlarged. There are moderately extensive bilateral pulmonary airspace o pacities consistent with a multifocal pneumonia. There are no significant pleural effusions.[ IMPRESSION: Interval development of moderately extensive bilateral pulmonary airspace opacities consi stent with a multifocal pneumonia. ACT 112: Negative or not required by law. Electronically signed by: Papito Herrera M.D. 10/06/2020 10:55 AM
[2020-10-06 10:58] LABS: Alanine Aminotransferase 34 U/L (12-78); Aspartate Aminotransferase 38 U/L (15-37); BUN Creatinine Ratio 14.4 (10-20); Blood Urea Nitrogen 12 mg/dl (7-18); Carbon Dioxide 32 mmol/L (21-32); Chloride 89 mmol/L (98-107); Creatinine Clr Calc Pharmacy 116.5 ml/min; Est GFR (African American) 127.5; Glucose 138 mg/dl (70-99); Potassium 3.1 mmol/L (3.5-5.1); Sodium 127 mmol/L (136-145)
[2020-10-06] MEDS ORDERED: AMPICILLIN/SULBACTAM SOD 3,000 MG in 0.9 % SODIUM CHLORIDE 100 ML IV STA (11:02)
[2020-10-06 11:03] LABS: Albumin Globulin Ratio 0.7 (0.9-2); Alkaline Phosphatase 100 U/L (45-117); Bilirubin,Total 0.4 mg/dl (0.2-1); Globulin 4.1 gm/dl (2.5-4.0); Total Protein 7.1 gm/dl (6.4-8.2); Troponin I < 0.015 ng/ml (0-0.045)
[2020-10-06 11:06] LABS: D Dimer 1280 ug/L FEU (0-500)
--- NOTE | 2020-10-06 11:35 | History & Physical Report ---
Date of Service October 06, 2020 Assessment & Plan (1) COVID-19: Dexamethasone 6 mg IV. Given duration of symptoms remdesivir and convalescent plasma not given. COVID-19 isolation precautions (2) Acute respiratory failure with hypoxia: Aim O2 sats greater than 90% ABG given significant prolonged expiratory phase - I suspect this is secondary to his tracheomalacia. Procalcitonin pending. Given worsening of symptoms, history of aspiration with intubation and CT findings of multifocal pneumonia we will will cover for bacterial pneumonia with Unasyn pending blood cultures and clinical improvement. (3) Schizophrenia: Continue his usual medications for schizophrenia and bipolar: Aripiprazole 30 mg p.o. every morning and fluvoxamine 50 mg p.o. at bedtime. (4) Hyponatremia: Suspect secondary to hydrochlorothiazide and lisinopril use. We will hold this. Avoid IV fluids if eating and drinking well. (5) HAIDER (obstructive sleep apnea): CPAP at bedtime (6) Gastroesophageal reflux disease: (7) Hypertension: Hold HCTZ and lisinopril secondary to hyponatremia as above. (8) DVT prophylaxis: Lovenox 40mg SQ BID Admission and Anticipated Discharge Date Admission Date: October 06, 2020 History of Present Illness Chief Complaint: Ongoing fever and shortness of breath, COVID-19 Primary Care Provider: Elijah Henderson MD Guerrero Telles is a 40 year old male with schizophrenia, obstructive sleep apnea, asthma, type 2 diabetes who presents to the ER with shortness of breath, cough and ongoing fevers. Unable to get history from the patient therefore history taken from available notes and electronic health record and his mother at bedside. He started having symptoms 12 to 13 days ago with sinus congestion/drainage, sore throat and cough. He had positive COVID-19 exposure at his shelter. He has since moved from his shelter and he recently has been living with his mother who is also Covid positive. Despite nebulizer treatment and a treatment of prednisone 40 mg p.o. daily for 5 days he has continued to have fevers, cough and worsening shortness of breath, significantly worse once he finished the prednisone dose. Of note he was treated for aspiration pneumonia requiring intubation in August 2020. He made a rapid recovery from this and was discharged 4 days later. He was noted to have tracheomalacia at that time. In the ER he was noted to have multifocal pneumonia, with labored breathing. CTA was negative for pulmonary embolism. He was referred to medicine for admission and ongoing management of COVID-19 pneumonia. Allergies Allergy/AdvReac Type Severity Reaction Status Date / Time lactose Allergy Unknown Unknown Verified 10/06/20 11:25 pollen extracts Allergy Unknown Unknown Verified 10/06/20 11:25 Home Medications Medication Instructions Recorded Confirmed Type aripiprazole 30 mg tablet 30 mg PO QAM 04/06/19 10/06/20 History benztropine 1 mg tablet 1 mg PO TID 04/06/19 10/06/20 History melatonin 3 mg tablet 3 mg PO HS 04/06/19 10/06/20 History multivitamin 1 tab PO DAILY 04/06/19 10/06/20 History oxcarbazepine 600 mg tablet 600 mg PO TID tab 07/23/19 10/06/20 History acetaminophen 325 mg capsule 325 mg PO Q8H PRN #90 cap 11/12/19 10/06/20 Rx omeprazole 40 mg capsule,delayed 40 mg PO DAILY #90 cap 05/18/20 10/06/20 Rx release loperamide 2 mg capsule 2 mg PO Q4H PRN #60 cap 05/22/20 10/06/20 Rx sitagliptin 25 mg tablet 25 mg PO DAILY #90 tab 07/15/20 10/06/20 Rx fluvoxamine 50 mg PO HS 08/09/20 10/06/20 History hydrochlorothiazide 12.5 mg PO QAM 08/09/20 10/06/20 History lisinopril 10 mg PO QAM 08/09/20 10/06/20 History ondansetron HCl 8 mg PO Q8H PRN 08/09/20 10/06/20 History sucralfate 1 gram tablet 1 g PO TID #360 tab 08/10/20 10/06/20 Rx albuterol sulfate 0.63 mg/3 mL 0.63 mg INHALATION Q4H PRN #90 ml 09/02/20 10/06/20 Rx solution for nebulization diclofenac sodium 4 g TOPICAL QID 10/06/20 10/06/20 History lactase [Lactaid Fast Act] 9,000 unit PO AC PRN 10/06/20 10/06/20 History loratadine 10 mg PO DAILY PRN 10/06/20 10/06/20 History Past Med/Surg History Medical History (Updated 10/07/20 @ 00:06 by John Chin MD) Abdominal pain Anxiety state, unspecified (03/19/13) Bipolar depression Esophageal dysfunction Gastroesophageal reflux disease (02/12/13) History of ulcerative colitis Insomnia Intermittent explosive disorder Kidney stone (03/19/13) Lactose intolerance Learning disabilities OCD (obsessive compulsive disorder) Oppositional defiant disorder (03/19/13) Psychosis Scoliosis Spina bifida occulta Tachycardia Surgical History Surgical history unknown Family History Father Hypertension Grandmother (Maternal) Breast cancer Other Impaired fasting glucose Kidney stone Denies family history of Colon cancer Ovarian cancer Prostate cancer Myocardial infarction Social History Smoking Status: Never smoker Second Hand Exposure: No; Do You Dip or Chew Tobacco: No; Tobacco Cessation Education Requested by Patient: No Hx Alcohol Use: No Hx Substance Use: No Preferred Language: Uzbek Communication Ability: Impaired Visual Impairment: No Limitations 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: Normal 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 Required: No Beliefs That Will Affect Care: None marital status: Single Current Living Situation: Personal Care Facility Current Living Situation Comment: [facility] current occupational status: unemployed Other Information That Helps Us Care for You: No Feels Safe at Home: Yes Safety Concerns: Feels Safe At This Time Physical Activity Frequency: Does not Exercise Seatbelt Use: always Assistive Devices: Oxygen - Continuous Review of Systems Review of Systems: All systems reviewed & are unremarkable except as noted in HPI & below Physical Exam Constitutional: + acute distress (Respiratory); + not well developed and + not well nourished Eyes: PERRL, conjunctivae normal, anicteric sclerae ENMT: Mouth: + dry oral mucous membranes Neck: trachea midline, no thyromegaly + thick neck Respiratory: + labored breathing, + retractions, + uses accessory muscles, + cough and + prolonged expiratory phase Auscultation: + diminished lung sounds (Bibasal) and + rhonchi (Throughout); no wheezes Cardiovascular: Rate/Rhythm: regular rhythm and + tachycardic Heart Sounds: no murmur Vessels: no JVD Extremities: normal capillary refill; no calf tenderness and no pedal edema Gastrointestinal (Abdomen): normal bowel sounds, soft, nontender, no hepatosplenomegaly Inspection/Auscultation: + abdomen distended Musculoskeletal: no cyanosis or clubbing, extremities motor strength 5/5 Skin: no rashes, warm and dry Neurologic: moves all extremities and awake; not confused Psychiatric: Orientation: alert and oriented x 3 Eye Contact: + fair eye contact Affect: euthymic affect Results & Data Results & [facility] ([facility]) Vital Signs (Past 12 Hours) Vital Signs Temp Pulse Pulse Resp BP BP Pulse Ox 10/06/20 10:56 108 H 24 134/85 94 10/06/20 10:11 86 L 10/06/20 09:45 36.6 C 113 H 20 120/82 91 Diagnostic Findings XR chest 1V portable IMPRESSION: Interval development of moderately extensive bilateral pulmonary airspace opacities consistent with a multifocal pneumonia. CT ANGIOGRAM OF THE CHEST IMPRESSION: 1. Moderate respiratory motion artifact 2. No evidence of acute pulmonary embolism given the technical limitations of the study 3. Mild adenopathy likely reactive 4. Moderately extensive multifocal groundglass pulmonary opacities consistent with a multifocal pneumonia Medications Administered ER medications given: Dexamethasone 6 mg IV Unasyn 3 g IV ECG Indication: SOB/dyspnea Rate (beats per minute): 104 Rhythm: sinus tachycardia Findings: no acute ischemic change Comparison ECG Date: from (August 09, 2020) Change: no significant change Code Status & VTE Plan Code Status Discussed with the patient and his mother at bedside. He wishes all treatment outside of a cardiac arrest. VTE Prophylaxis Plan VTE Prophylaxis will be ordered: Yes PG Care Time/CCT Total # of Minutes Spent Total Time Spent with Patient: Total time spent is greater than 50% in coordination of care (as documented) at patient's floor/unit and/or counseling patient: Coding Level of Care Code 38472 Initial Inpt Care Lvl 3 Diagnoses COVID-19 U07.1 Acute respiratory failure with hypoxia J96.01 Schizophrenia F20.9 Hyponatremia E87.1 HAIDER (obstructive sleep apnea) G47.33 Gastroesophageal reflux disease K21.9 Hypertension I10 DVT prophylaxis Z29.9
[2020-10-06 11:59] LABS: C Reactive Protein 13.4 mg/dl (0-0.29); Ferritin 609.2 ng/ml (8-388)
[2020-10-06] MEDS ORDERED: OPTIRAY 320 125ml IV ONE (12:36)
--- NOTE | 2020-10-06 12:42 | CT Scan Report ---
CT ANGIOGRAM OF THE CHEST CLINICAL HISTORY: Shortness of breath. Elevated d-dimer. Covid positive patient. COMPARISON STUDY: CT scan dated 08/21/2020, chest x-ray dated 10/06/2020 TECHNIQUE: Following the IV administration of 120 mL of Optiray-320, CT angiogram of the thorax was p erformed from the thoracic inlet to the lung bases utilizing the pulmonary embolus protocol. Images a re reviewed in the axial, sagittal, and coronal planes. IV contrast was administered without complica tion. MIP imaging was performed. A dose lowering technique was utilized adhering to the principles o f ALARA. CT DOSE: 494.69 mGycm FINDINGS: There are mildly prominent mediastinal and hilar lymph nodes, likely reactive. There was no evidence of thoracic aortic dilatation. The study demonstrates significant motion artifact. There are no pulmonary artery filling defects to indicate acute pulmonary embolism. No pleural effusions are visualized. There are extensive bilateral multifocal groundglass pulmonary opacities consistent with a multifocal pneumonia. The findings are consistent with although not specific for Covid 19 pneumonia IMPRESSION: 1. Moderate respiratory motion artifact 2. No evidence of acute pulmonary embolism given the technical limitations of the study 3. Mild adenopathy likely reactive 4. Moderately extensive multifocal groundglass pulmonary opacities consistent with a multifocal pneum onia ACT 112: Negative or not required by law. Electronically signed by: Papito Herrera M.D. 10/06/2020 12:41 PM
[2020-10-06 12:47] LABS: Influenza A virus by PCR Negative (Negative); Influenza B virus by PCR Negative (Negative)
--- NOTE | 2020-10-06 12:54 | Electrocardiogram Report ---
Test Reason : Blood Pressure : / mmHG Vent. Rate : 104 BPM Atrial Rate : 104 BPM P-R Int : 168 ms QRS Dur : 080 ms QT Int : 340 ms P-R-T Axes : 040 014 012 degrees QTc Int : 447 ms Sinus tachycardia Otherwise normal ECG When compared with ECG of 09-AUG-2020 01:38, No significant change was found Confirmed by Elijah Duque ([id number]) on 10/06/2020 12:54:10 PM Referred By: REFERRED SELF Confirmed By:Elijah Duque
[2020-10-06] MEDS ORDERED: ALBUTEROL HFA 8 GM INHALER INH ONE (13:02)
[2020-10-06 13:40] LABS: Allen Test Pos (Pos); Base Excess ABG 4.5 mEq/L (-9-1.8); HCO3 ABG 29 mmol/L (19-24); Oxygen Saturation ABG 96.6 % (90-95); PCO2 ABG 41 mmHg (35-46); PO2 ABG 84 mmHg (80-95); pH ABG 7.46 (7.35-7.45)
[2020-10-06] MEDS ORDERED: POLYETHYLENE (MIRALAX) 17 GM PACK PO PRN (14:11)
[2020-10-06] MEDS ORDERED: ONDANSETRON INJ 2 MG/ML 2 ML VIAL IV PRN (14:11)
[2020-10-06] MEDS ORDERED: ALUMINUM/MAGNESIUM SUSP 30 ML UDC PO PRN (14:11)
[2020-10-06] MEDS ORDERED: LACTASE 3000 UNIT TAB PO PRN (14:40)
[2020-10-06] MEDS: ALBUTEROL HFA 8 GM INHALER INH SCH ×3 (15:41→22:32)
[2020-10-06] MEDS: SUCRALFATE 1 GM TAB PO SCH (16:02)
[2020-10-06] MEDS: BENZTROPINE MESYLATE 1 MG TAB PO SCH ×2 (16:02→20:51)
[2020-10-06] MEDS: DICLOFENAC SOD 1% GEL 100 GM TUBE EXT SCH ×3 (16:06→20:51)
[2020-10-06] MEDS: OXcarbazepine 150 MG TABLET PO SCH ×2 (16:06→20:51)
[2020-10-06] MEDS: AMPICILLIN/SULBACTAM SOD 3,000 MG in 0.9 % SODIUM CHLORIDE 100 ML IV SCH (19:01)
[2020-10-06] MEDS: ENOXAPARIN INJ 40 MG/0.4 ML SYR SQ SCH (20:50)
[2020-10-06] MEDS: fluvoxaMINE MALEATE 50 MG TAB PO SCH (20:51)
[2020-10-06] MEDS: MELATONIN 3 MG TAB PO SCH (21:09)
[2020-10-07] MEDS: AMPICILLIN/SULBACTAM SOD 3,000 MG in 0.9 % SODIUM CHLORIDE 100 ML IV SCH ×5 (00:20→23:28)
[2020-10-07] MEDS: POTASSIUM CHLORIDE / WTR 10 MEQ/100 ML PLCT IV SCH ×2 (02:14→03:45)
[2020-10-07] MEDS: ALBUTEROL HFA 8 GM INHALER INH SCH ×6 (05:29→20:19)
[2020-10-07 05:33] LABS: Basophils # (auto) 0.02 K/uL (0-0.2); Basophils % (auto) 0.4 %; Hematocrit (blood only) 37.9 % (42-52); Hemoglobin 12.6 g/dL (14.0-18.0); Immature Granulocytes # (auto) 0.09 K/uL (0.00-0.02); Immature Granulocytes % (auto) 1.7 %; Lymphocytes # (auto) 1.58 K/uL (1.2-3.4); Lymphocytes % (auto) 29.8 %; Mean Corpuscular Hemoglobin 29.7 pg (25-34); Mean Corpuscular Hgb Conc 33.2 g/dL (32-36); Mean Corpuscular Volume 89.4 fL (80-100); Mean Platelet Volume 9.1 fL (7.4-10.4); Monocytes # (auto) 0.45 K/uL (0.11-0.59); Monocytes % (auto) 8.5 %; Neutrophils # (auto) 3.16 K/uL (1.4-6.5); Neutrophils % (auto) 59.6 %; Platelet Count 208 K/uL (130-400); RDW Coefficient of Variation 13.3 % (11.5-14.5); RDW Standard Deviation 43.5 fL (36.4-46.3); Red Blood Count 4.24 M/uL (4.7-6.1)
[2020-10-07 06:11] LABS: Albumin Level 3.1 gm/dl (3.4-5.0); BUN Creatinine Ratio 15.6 (10-20); Calcium 8.9 mg/dl (8.5-10.1); Creatinine Clr Calc Pharmacy 130.1 ml/min; Est GFR (African American) 133.4; Est GFR (Non-African American) 115.1; Potassium 3.5 mmol/L (3.5-5.1)
[2020-10-07 06:13] LABS: Albumin Globulin Ratio 0.8 (0.9-2); Bilirubin,Total 0.5 mg/dl (0.2-1); Total Protein 7.1 gm/dl (6.4-8.2)
[2020-10-07] MEDS: ENOXAPARIN INJ 40 MG/0.4 ML SYR SQ SCH ×2 (07:57→20:05)
[2020-10-07] MEDS: SUCRALFATE 1 GM TAB PO SCH ×3 (07:58→16:32)
[2020-10-07] MEDS: OXcarbazepine 150 MG TABLET PO SCH ×3 (07:58→20:06)
[2020-10-07] MEDS: DICLOFENAC SOD 1% GEL 100 GM TUBE EXT SCH ×4 (07:58→20:08)
[2020-10-07] MEDS: MULTIVITAMIN TAB PO SCH (07:58)
[2020-10-07] MEDS: PANTOprazole 40 MG TAB PO SCH (07:58)
[2020-10-07] MEDS: ARIPiprazole 15 MG TAB PO SCH (07:58)
[2020-10-07] MEDS ORDERED: lisinopril 10 MG TAB PO SCH (09:00)
[2020-10-07] MEDS ORDERED: DEXAMETHASONE SOD INJ 10 MG/ML VIAL IV SCH (09:00)
[2020-10-07] MEDS: dexAMETHasone 6 MG in SYRINGE 0 ML IV SCH (10:27)
[2020-10-07] MEDS: BENZTROPINE MESYLATE 1 MG TAB PO SCH ×3 (10:28→20:06)
[2020-10-07] MEDS: LORATADINE 10 MG TAB PO SCH (10:28)
--- NOTE | 2020-10-07 11:09 | Hospitalist Progress Note ---
Date of Service October 07, 2020 Assessment & Plan (1) COVID-19: Dexamethasone 6 mg IV daily x 10 days, change to PO if he comes of oxygen Given duration of symptoms remdesivir and convalescent plasma not given. COVID-19 isolation precautions on 2L, if he can be on room air for 24 hours will sent him home, very anxious to go home (2) Acute respiratory failure with hypoxia: Aim O2 sats greater than 90% on 2L this morning, no distress, try to wean to room air if okay on room air for 24 hours then go home (3) Aspiration pneumonia: possible aspiration pneumonia on admission, history of such continue Unasyn IV while admitted, complete 5 days, can change to Augmentin on discharge (4) Schizophrenia: Continue his usual medications for schizophrenia and bipolar: Aripiprazole 30 mg p.o. every morning and fluvoxamine 50 mg p.o. at bedtime. (5) Hyponatremia: Suspect secondary to hydrochlorothiazide and lisinopril use. We will hold this. Avoid IV fluids if eating and drinking well. Na up to 131, repeat tomorrow (6) HAIDER (obstructive sleep apnea): CPAP at bedtime (7) Gastroesophageal reflux disease: (8) Hypertension: Hold HCTZ and lisinopril secondary to hyponatremia as above. BP is stable today without them (9) DVT prophylaxis: Lovenox 40mg SQ BID Admission and Anticipated Discharge Date Admission Date: October 06, 2020 Subjective patient doing well this morning, no distress, breathing well on 2L he says he feels better, wants to go home, told him that he is still on oxygen, would want him on room air for 24 hours he wants his mom to bring in his video games to pass the time he is eating very well, no fever reviewed chart, reviewed labs no issues on tele, will move to medical floor called and spoke with his mother Review of Systems Review of Systems: All systems reviewed & are unremarkable except as noted in Subjective Physical Exam Constitutional: well developed and + overweight; no acute distress Respiratory: normal respiratory effort, lungs clear to auscultation Cardiovascular: RRR, no murmur, no edema Gastrointestinal (Abdomen): normal bowel sounds, soft, nontender, no hepatosplenomegaly Musculoskeletal: no cyanosis or clubbing, extremities motor strength 5/5 Skin: no rashes, warm and dry Neurologic: patellar DTR's 2+ bilat, sensation intact and PERRL, EOMI, accommodation nl, no face palsy, no dysarthria Psychiatric: Orientation: alert and oriented x 3 Affect: euthymic affect Estimated Intelligence: + below average estimated intelligence Lymphatic: no cervical or axillary lymphadenopathy Results & Data Results & Data ([facility]) Vital Signs (Past 12 Hours) Vital Signs Temp Pulse Pulse Resp BP Pulse Ox 10/07/20 07:52 36.8 C 87 20 126/86 95 10/07/20 03:41 36.8 C 94 H 22 115/97 95 10/07/20 03:24 91 H 16 95 10/07/20 00:00 37 C 103 H 18 115/78 94 Laboratory Results Laboratory Results - last 24 hr 10/06/20 10/06/20 10/06/20 10:30 10:30 10:30 WBC RBC Hgb Hct MCV MCH MCHC RDW Std Deviation RDW Coeff of Chilo Plt Count MPV Immature Gran % (Auto) Neut % (Auto) Lymph % (Auto) York % (Auto) Eos % (Auto) Baso % (Auto) Neut # (Auto) Lymph # (Auto) York # (Auto) Eos # (Auto) Baso # (Auto) Immature Gran # (Auto) ABG pH ABG pCO2 ABG pO2 ABG HCO3 ABG O2 Saturation ABG Base Excess Stuart Test Barometric Pressure Oxygen Given Sodium Potassium Chloride Carbon Dioxide Anion Gap BUN Creatinine Est Cr Clr Drug Dosing Est GFR ( Amer) Est GFR (Non-Af Amer) BUN/Creatinine Ratio Glucose POC Glucose Calcium Ferritin 609.2 H Total Bilirubin AST ALT Alkaline Phosphatase Lactate Dehydrogenase 339 H Total Creatine Kinase 504 H C-Reactive Protein 13.40 H Total Protein Albumin Globulin Albumin/Globulin Ratio Procalcitonin 0.22 Influ A Molecular Assay Influ B Molecular Assay Blood Type Antibody Screen 10/06/20 10/06/20 10/06/20 10:32 12:00 13:31 WBC RBC Hgb Hct MCV MCH MCHC RDW Std Deviation RDW Coeff of Chilo Plt Count MPV Immature Gran % (Auto) Neut % (Auto) Lymph % (Auto) York % (Auto) Eos % (Auto) Baso % (Auto) Neut # (Auto) Lymph # (Auto) York # (Auto) Eos # (Auto) Baso # (Auto) Immature Gran # (Auto) ABG pH 7.46 H ABG pCO2 41 ABG pO2 84 ABG HCO3 29 H ABG O2 Saturation 96.6 H ABG Base Excess 4.5 H Stuart Test Pos Barometric Pressure 731.2 Oxygen Given 2 Sodium Potassium Chloride Carbon Dioxide Anion Gap BUN Creatinine Est Cr Clr Drug Dosing Est GFR ( Amer) Est GFR (Non-Af Amer) BUN/Creatinine Ratio Glucose POC Glucose Calcium Ferritin Total Bilirubin AST ALT Alkaline Phosphatase Lactate Dehydrogenase Total Creatine Kinase C-Reactive Protein Total Protein Albumin Globulin Albumin/Globulin Ratio Procalcitonin Influ A Molecular Assay Negative Influ B Molecular Assay Negative Blood Type A Negative Antibody Screen NEGATIVE 10/06/20 10/07/20 10/07/20 20:18 05:19 05:19 WBC 5.30 RBC 4.24 L Hgb 12.6 L Hct 37.9 L MCV 89.4 MCH 29.7 MCHC 33.2 RDW Std Deviation 43.5 RDW Coeff of Chilo 13.3 Plt Count 208 MPV 9.1 Immature Gran % (Auto) 1.7 Neut % (Auto) 59.6 Lymph % (Auto) 29.8 York % (Auto) 8.5 Eos % (Auto) 0.0 Baso % (Auto) 0.4 Neut # (Auto) 3.16 Lymph # (Auto) 1.58 York # (Auto) 0.45 Eos # (Auto) 0.00 Baso # (Auto) 0.02 Immature Gran # (Auto) 0.09 H ABG pH ABG pCO2 ABG pO2 ABG HCO3 ABG O2 Saturation ABG Base Excess Stuart Test Barometric Pressure Oxygen Given Sodium 131 L Potassium 3.5 Chloride 95 L Carbon Dioxide 30 Anion Gap 6.0 BUN 12 Creatinine 0.77 Est Cr Clr Drug Dosing 130.1 Est GFR ( Amer) 133.4 Est GFR (Non-Af Amer) 115.1 BUN/Creatinine Ratio 15.6 Glucose 96 POC Glucose 111 H Calcium 8.9 Ferritin Total Bilirubin 0.5 AST 33 ALT 36 Alkaline Phosphatase 95 Lactate Dehydrogenase Total Creatine Kinase C-Reactive Protein Total Protein 7.1 Albumin 3.1 L Globulin 4.0 Albumin/Globulin Ratio 0.8 L Procalcitonin Influ A Molecular Assay Influ B Molecular Assay Blood Type Antibody Screen Medications Administered Current Inpatient Medications Acetaminophen (Acetaminophen 325 Mg Tab) 650 mg PO Q4H PRN PRN Reason: Pain or Fever Stop: 11/05/20 14:10 Al Hydrox/Mg Hydrox/Simethicone (Aluminum/Magnesium Susp 30 Ml Udc) 15 ml PO Q4H PRN PRN Reason: Dyspepsia Stop: 11/05/20 14:10 Albuterol (Albuterol Hfa 8 Gm Inhaler) 2 puffs INH Q4R NELL Stop: 11/05/20 14:59 Last Admin: 10/07/20 07:59 Dose: 2 puffs Documented by: Aripiprazole (Aripiprazole 15 Mg Tab) 30 mg PO QAM [facility] Stop: 11/06/20 08:59 Last Admin: 10/07/20 07:58 Dose: 30 mg Documented by: Benztropine Mesylate (Benztropine Mesylate 1 Mg Tab) 1 mg PO TID [facility] Stop: 11/05/20 15:14 Last Admin: 10/07/20 10:28 Dose: 1 mg Documented by: Diclofenac Sodium (Diclofenac Sod 1% Gel 100 Gm Tube) 4 gm EXT QID [facility] Stop: 11/05/20 15:14 Last Admin: 10/07/20 07:58 Dose: 4 gm Documented by: Enoxaparin Sodium (Enoxaparin Inj 40 Mg/0.4 Ml Syr) 40 mg SQ BID [facility] Stop: 11/05/20 20:59 Last Admin: 10/07/20 07:57 Dose: 40 mg Documented by: Fluvoxamine Maleate (Fluvoxamine Maleate 50 Mg Tab) 50 mg PO HS [facility] Stop: 11/05/20 20:59 Last Admin: 10/06/20 20:51 Dose: 50 mg Documented by: Ampicillin Sodium/Sulbactam Sodium 3,000 mg/ Sodium Chloride 108 mls @ 200 mls/hr IV Q6H [facility]; Protocol Stop: 10/13/20 17:59 Last Infusion: 10/07/20 07:57 Dose: Infused Documented by: Dexamethasone Sodium Phosphate (6 mg/ Syringe) 1.5 mls @ 1 mls/min IV DAILY [facility] Stop: 11/06/20 08:59 Last Admin: 10/07/20 10:27 Dose: 1 mls/min Documented by: Lactase (Lactase 3000 Unit Tab) 9,000 units PO AC PRN PRN Reason: Lactose Intolerance Stop: 11/05/20 14:39 Loratadine (Loratadine 10 Mg Tab) 10 mg PO DAILY [facility] Stop: 11/06/20 08:59 Last Admin: 10/07/20 10:28 Dose: 10 mg Documented by: Melatonin (Melatonin 3 Mg Tab) 3 mg PO HS [facility] Stop: 11/05/20 20:59 Last Admin: 10/06/20 21:09 Dose: Not Given Documented by: Multivitamins (Multivitamin Tab) 1 tab PO DAILY [facility] Stop: 11/06/20 08:59 Last Admin: 10/07/20 07:58 Dose: 1 tab Documented by: Ondansetron HCl (Ondansetron Inj 2 Mg/Ml 2 Ml Vial) 4 mg IV Q6H PRN PRN Reason: Nausea Stop: 11/05/20 14:10 Oxcarbazepine (Oxcarbazepine 150 Mg Tablet) 600 mg PO TID [facility] Stop: 11/05/20 15:14 Last Admin: 10/07/20 07:58 Dose: 600 mg Documented by: Pantoprazole Sodium (Pantoprazole 40 Mg Tab) 40 mg PO DAILY [facility] Stop: 11/06/20 08:59 Last Admin: 10/07/20 07:58 Dose: 40 mg Documented by: Polyethylene Glycol (Polyethylene (Miralax) 17 Gm Pack) 17 gm PO DAILY PRN PRN Reason: Constipation Stop: 11/05/20 14:10 Sucralfate (Sucralfate 1 Gm Tab) 1 gm PO AC [facility] Stop: 11/05/20 16:29 Last Admin: 10/07/20 07:58 Dose: 1 gm Documented by: PG Care Time/CCT Total # of Minutes Spent Total Time Spent with Patient: Total time spent is greater than 50% in coordination of care (as documented) at patient's floor/unit and/or counseling patient: Coding Level of Care Code 74829 Subseq Hosp Care Lvl 3 Diagnoses COVID-19 U07.1 Acute respiratory failure with hypoxia J96.01 Aspiration pneumonia J69.0 Aspiration pneumonia type: unspecified Laterality: bilateral Lung location: unspecified part of lung Schizophrenia F20.9 Hyponatremia E87.1 HAIDER (obstructive sleep apnea) G47.33 Gastroesophageal reflux disease K21.9 Hypertension I10 DVT prophylaxis Z29.9 (1) Aspiration pneumonia Aspiration pneumonia type: unspecified Laterality: bilateral Lung location: unspecified part of lung Qualified Code(s): J69.0 - Pneumonitis due to inhalati on of food and vomit
[2020-10-07] MEDS ORDERED: KETOROLAC TROMETHAMINE 15 MG/ML VIAL IV ONE (16:06)
--- NOTE | 2020-10-07 17:04 | XRay Report ---
LEFT ANKLE 2 VIEWS HISTORY: Right ankle pain. fall, pain, swelling COMPARISON: Left ankle 08/11/2020. FINDINGS: There is no fracture or dislocation. Mild soft tissue swelling. No radiopaque foreign dina s. IMPRESSION: No fractures. ACT 112: Negative or not required by law. Electronically signed by: Jose Do M.D. 10/07/2020 5:02 PM
[2020-10-07] MEDS: fluvoxaMINE MALEATE 50 MG TAB PO SCH (20:06)
[2020-10-07] MEDS: MELATONIN 3 MG TAB PO SCH (20:06)
[2020-10-08] MEDS: ALBUTEROL HFA 8 GM INHALER INH SCH ×2 (03:19→07:12)
[2020-10-08] MEDS: ACETAMINOPHEN 325 MG TAB PO PRN ×3 (04:02→16:22)
[2020-10-08] MEDS: AMPICILLIN/SULBACTAM SOD 3,000 MG in 0.9 % SODIUM CHLORIDE 100 ML IV SCH ×4 (05:25→23:48)
[2020-10-08 06:53] LABS: Hematocrit (blood only) 36.3 % (42-52); Hemoglobin 11.9 g/dL (14.0-18.0); Mean Corpuscular Hemoglobin 29.8 pg (25-34); Mean Corpuscular Hgb Conc 32.8 g/dL (32-36); Platelet Count 232 K/uL (130-400); RDW Coefficient of Variation 13.7 % (11.5-14.5); RDW Standard Deviation 45.9 fL (36.4-46.3); Red Blood Count 3.99 M/uL (4.7-6.1); White Blood Count 6.05 K/uL (4.8-10.8)
[2020-10-08 07:21] LABS: BUN Creatinine Ratio 23.2 (10-20); Calcium 8.7 mg/dl (8.5-10.1); Creatinine Clr Calc Pharmacy 135.4 ml/min; Est GFR (African American) 135.6; Potassium 3.5 mmol/L (3.5-5.1)
[2020-10-08] MEDS: SUCRALFATE 1 GM TAB PO SCH ×3 (08:53→16:21)
[2020-10-08] MEDS: ARIPiprazole 15 MG TAB PO SCH (08:54)
[2020-10-08] MEDS: BENZTROPINE MESYLATE 1 MG TAB PO SCH ×3 (08:55→20:29)
[2020-10-08] MEDS: LORATADINE 10 MG TAB PO SCH (08:55)
[2020-10-08] MEDS: dexAMETHasone 6 MG in SYRINGE 0 ML IV SCH (08:55)
[2020-10-08] MEDS: ENOXAPARIN INJ 40 MG/0.4 ML SYR SQ SCH ×2 (08:56→20:30)
[2020-10-08] MEDS: MULTIVITAMIN TAB PO SCH (08:56)
[2020-10-08] MEDS: PANTOprazole 40 MG TAB PO SCH (08:57)
[2020-10-08] MEDS: OXcarbazepine 150 MG TABLET PO SCH ×3 (08:57→20:28)
[2020-10-08] MEDS: DICLOFENAC SOD 1% GEL 100 GM TUBE EXT SCH ×4 (08:58→20:28)
--- NOTE | 2020-10-08 10:08 | Hospitalist Progress Note ---
Date of Service October 08, 2020 Assessment & Plan (1) COVID-19: Testing for Covid was + 09/29/2020 Today's day #2 of dexamethasone. We will plan on 10 days unless discharged. Can discontinue on discharge Remdesivir and convalescent plasma not appropriate with this patient Patient currently is oxygenating well on room air but does desaturate mildly with ambulation Continue to follow oxygenation status Supplemental oxygen via nasal cannula as needed to maintain SaO2 greater than 90% (2) Acute respiratory failure with hypoxia: Secondary to COVID-19 as listed above Continue to titrate supplemental O2 with an SaO2 greater than 90% Patient was on supplemental oxygen this morning Will reevaluate in the morning Patient anxious to go home but may benefit from two-step prior to discharge (3) Aspiration pneumonia: Patient with reports of vomiting prior to admission Started on Unasyn. Procalcitonin is negative is 0.22 We will check another procalcitonin to trend tomorrow morning If procalcitonin is negative we will consider discontinuing antibiotics on discharge (4) Schizophrenia: Patient with history of schizophrenia and bipolar disorder Continue aripiprazole, oxcarbazepine, fluvoxamine and benztropine Continue melatonin for sleep (5) Hyponatremia: Sodium improved from 131 yesterday to 135 today We will check a PRP again tomorrow to look at electrolytes No indication for fluid restriction or other intervention at this time (6) HAIDER (obstructive sleep apnea): Continue CPAP as tolerated (7) Gastroesophageal reflux disease: No complaints of midepigastric pain today Patient denies any esophagitis Continue sucralfate and pantoprazole (8) Hypertension: Continue loratadine Blood pressure controlled (9) DVT prophylaxis: Enoxaparin 40 mg SQ twice daily Patient is not on any anticoagulants at home Ambulate as tolerated Admission and Anticipated Discharge Date Admission Date: October 06, 2020 Subjective Attending: Dr. Polanco Patient seen and examined at bedside. He is complaining about nasal discomfort and has not been able to comfortably wear his nasal cannula. In spite of this, he is saturating in the low 90s on room air at rest. Continuous pulse oximetry is currently being managed. Patient denies any chest pain or tightness. He denies nausea or vomiting. He denies any diarrhea. He does feel tired. He is cooperative with examination. Review of Systems Review of Systems: All systems reviewed & are unremarkable except as noted in Subjective Physical Exam Physical Exam: GENERAL : No acute distress EYES: No icterus, gaze conjugate NOSE: No evidence of epistaxis MOUTH: No lesions or candidiasis NECK: Supple LUNGS: Faint crackles at the bilateral bases. No rhonchi or bronchospasm appreciated HEART: Regular, rate controlled ABDOMEN: Soft, NT, ND, BS Present EXTREMITIES: No LE edema, pedal pulses intact and equal bilaterally. Patient complaining of tenderness to palpation on examination of left ankle and foot. Prior to my departure, I placed an ice pack on that area. NEURO: A&OX3 Results & Data Results & Data ([facility]) Vital Signs (Past 12 Hours) Vital Signs Temp Pulse Pulse Resp BP Pulse Ox 10/08/20 07:35 36.3 C L 90 20 118/81 94 10/08/20 07:12 90 18 96 10/08/20 06:30 91 10/08/20 05:24 20 95 10/08/20 03:27 87 96 10/08/20 03:21 86 18 97 10/08/20 00:11 20 95 10/07/20 23:23 36.7 C 94 H 16 110/82 96 10/07/20 22:42 87 20 96 Laboratory Results 10/08/20 06:17 10/08/20 06:17 Diagnostic Findings LEFT ANKLE 2 VIEWS HISTORY: Right ankle pain. fall, pain, swelling COMPARISON: Left ankle 08/11/2020. FINDINGS: There is no fracture or dislocation. Mild soft tissue swelling. No radiopaque foreign bodies. IMPRESSION: No fractures. Electronically signed by: Jose Do M.D. 10/07/2020 5:02 PM PG Care Time/CCT Total # of Minutes Spent Total Time Spent with Patient: Total time spent is greater than 50% in coordination of care (as documented) at patient's floor/unit and/or counseling patient:30 minutes Coding Level of Care Code 43590 Subseq Hosp Care Lvl 2 Diagnoses COVID-19 U07.1 Acute respiratory failure with hypoxia J96.01 Aspiration pneumonia J69.0 Aspiration pneumonia type: unspecified Laterality: bilateral Lung location: unspecified part of lung Schizophrenia F20.9 Hyponatremia E87.1 HAIDER (obstructive sleep apnea) G47.33 Gastroesophageal reflux disease K21.9 Hypertension I10 DVT prophylaxis Z29.9 Time Spent (min) 30 (1) Aspiration pneumonia Aspiration pneumonia type: unspecified Laterality: bilateral Lung location: unspecified part of lung Qualified Code(s): J69.0 - Pneumonitis due to inhalation of food and vomit
[2020-10-08] MEDS ORDERED: ALBUTEROL HFA 8 GM INHALER INH PRN (10:24)
[2020-10-08] MEDS: fluvoxaMINE MALEATE 50 MG TAB PO SCH (20:28)
[2020-10-08] MEDS: MELATONIN 3 MG TAB PO SCH (21:27)
[2020-10-09] MEDS: AMPICILLIN/SULBACTAM SOD 3,000 MG in 0.9 % SODIUM CHLORIDE 100 ML IV SCH ×2 (05:12→11:25)
[2020-10-09 07:05] LABS: BUN Creatinine Ratio 19.5 (10-20); Creatinine Clr Calc Pharmacy 120.7 ml/min; Est GFR (African American) 129.4; Est GFR (Non-African American) 111.6; Potassium 3.6 mmol/L (3.5-5.1)
[2020-10-09] MEDS: SUCRALFATE 1 GM TAB PO SCH ×2 (07:41→11:26)
[2020-10-09] MEDS: LORATADINE 10 MG TAB PO SCH (07:42)
[2020-10-09] MEDS: ARIPiprazole 15 MG TAB PO SCH (07:42)
[2020-10-09] MEDS: BENZTROPINE MESYLATE 1 MG TAB PO SCH (07:43)
[2020-10-09] MEDS: dexAMETHasone 6 MG in SYRINGE 0 ML IV SCH (07:43)
[2020-10-09] MEDS: ENOXAPARIN INJ 40 MG/0.4 ML SYR SQ SCH (07:44)
[2020-10-09] MEDS: MULTIVITAMIN TAB PO SCH (07:44)
[2020-10-09] MEDS: OXcarbazepine 150 MG TABLET PO SCH (07:45)
[2020-10-09] MEDS: PANTOprazole 40 MG TAB PO SCH (07:45)
[2020-10-09] MEDS: DICLOFENAC SOD 1% GEL 100 GM TUBE EXT SCH (07:46)
--- NOTE | 2020-10-09 10:14 | Discharge Summary ---
Date of Service October 09, 2020 Admission HPI Per Admitting Provider Guerrero Telles is a 40 year old male with schizophrenia, obstructive sleep apnea, asthma, type 2 diabetes who presents to the ER with shortness of breath, cough and ongoing fevers. Unable to get history from the patient therefore history taken from available notes and electronic health record and his mother at bedside. He started having symptoms 12 to 13 days ago with sinus congestion/drainage, sore throat and cough. He had positive COVID-19 exposure at his longterm. He has since moved from his longterm and he recently has been living with his mother who is also Covid positive. Despite nebulizer treatment and a treatment of prednisone 40 mg p.o. daily for 5 days he has continued to have fevers, cough and worsening shortness of breath, significantly worse once he finished the prednisone dose. Of note he was treated for aspiration pneumonia requiring intubation in August 2020. He made a rapid recovery from this and was discharged 4 days later. He was noted to have tracheomalacia at that time. In the ER he was noted to have multifocal pneumonia, with labored breathing. CTA was negative for pulmonary embolism. He was referred to medicine for admission and ongoing management of COVID-19 pneumonia. Principal Diagnosis COVID 19 pneumonia Discharge Exam Constitutional well developed and + overweight; no acute distress Respiratory normal respiratory effort, lungs clear to auscultation Cardiovascular RRR, no murmur, no edema Gastrointestinal (Abdomen) normal bowel sounds, soft, nontender, no hepatosplenomegaly Musculoskeletal no cyanosis or clubbing, extremities motor strength 5/5 Skin no rashes, warm and dry Neurologic patellar DTR's 2+ bilat, sensation intact and PERRL, EOMI, accommodation nl, no face palsy, no dysarthria Psychiatric Orientation: alert and oriented x 3 Affect: euthymic affect Estimated Intelligence: + below average estimated intelligence Lymphatic no cervical or axillary lymphadenopathy Discharge Data Allergies Allergy/AdvReac Type Severity Reaction Status Date / Time lactose Allergy Unknown Unknown Verified 10/06/20 11:25 pollen extracts Allergy Unknown Unknown Verified 10/06/20 11:25 Ordered Studies 10/06/20 11:29 CT angio chest PE protocol Stat Hospital Course (1) COVID-19: Dexamethasone 6 mg IV daily while admitted change to dexamethasone 6mg daily for 4 more days Given duration of symptoms remdesivir and convalescent plasma not given. COVID-19 isolation precautions on room air for over 24 hours, no dyspnea, no dyspnea on exertion, minimal cough eating and drinking well, no fever will discharge to home discussed with his mother over the phone prior to discharge (2) Acute respiratory failure with hypoxia: Aim O2 sats greater than 90% required 2L NC for a few days but now on room air for over 24 hours he desaturates when sleeping d/w his mother, he has HAIDER, he was fitted for CPAP, but he would not wear the mask at home so DME took back she understands that he will continue to have HAIDER, he won't comply with proper treatment (3) Schizophrenia: Continue his usual medications for schizophrenia and bipolar: Aripiprazole 30 mg p.o. every morning and fluvoxamine 50 mg p.o. at bedtime. (4) Hyponatremia: Suspect secondary to hydrochlorothiazide and lisinopril use. We will hold this. Avoid IV fluids if eating and drinking well. Na up to normal with NSS hydration (5) HAIDER (obstructive sleep apnea): won't use CPAP no longer has this at home, DME company had to take back because of non- compliance (6) Gastroesophageal reflux disease: (7) Hypertension: held HCTZ and lisinopril secondary to hyponatremia as above. BP is stable today will resume on discharge (8) DVT prophylaxis: Lovenox 40mg SQ BID Total Time Total Time Spent Total Time Spent (In Minutes): 33 minutes Total Time Includes: Examination of the Patient, Discharge Planning, Medication Reconciliation and Other (discussion with patient's mother over phone) Discharge Plan Discharge Items Patient Disposition: Home - Self-Care Reason For Visit: COVID 19,PNA,ACUTE HYPOXIC RESPIRATORY FAILURE Discharge Diagnosis: COVID 19 pneumonia Acute hypoxic respiratory failure Condition on Discharge: Good Goals: stay well rested, well nourished, well hydrated Activity: Resume your previous activity Non-emergency contact: Primary Care Provider Call non-emergency contact if: you have any medication questions, your symptoms worsen and you have a fever Follow-up/Referrals: Elijah Henderson MD [Primary Care Provider] - Diet: Carb Consistent or DM2 Addtl Attending Provider Instructions: Medications: - DEXAMETHASONE: 6mg daily for 4 more days, next dose due tomorrow morning COVID 19 pneumonia responded well to treatment with dexamethasone and Unasyn and supportive care complete 4 more days of dexamethasone, no need for any further antibiotics stay well nourished, well hydrated, well rested you have had symptoms for over 2 weeks so there is no further need for isolation/quarantine, recommend that you wear a mask any time you leave your home Pending Studies at Discharge: No Stand-Alone Forms: My [facility], Smoking Cessation Medications and DC Order Prescriptions: Continued acetaminophen [Tylenol] 325 mg capsule 325 mg PO Q8H PRN (Reason: fever or pain) Qty: 90 RF: 0 omeprazole 40 mg capsule,delayed release(DR/EC) 40 mg PO DAILY Qty: 90 RF: 3 loperamide [Imodium A-D] 2 mg capsule 2 mg PO Q4H PRN (Reason: loose stool) Qty: 60 RF: 2 Januvia 25 mg tablet 25 mg PO DAILY Qty: 90 RF: 3 sucralfate [Carafate] 1 gram tablet 1 g PO TID Qty: 360 RF: 3 albuterol sulfate 0.63 mg/3 mL solution for nebulization 0.63 mg inhalation Q4H PRN (Reason: bronchospasm) Qty: 90 RF: 3 oxcarbazepine 600 mg tablet 600 mg PO TID RF: 0 aripiprazole [Abilify] 30 mg tablet 30 mg PO QAM RF: 0 benztropine 1 mg tablet 1 mg PO TID RF: 0 melatonin 3 mg tablet 3 mg PO HS RF: 0 multivitamin [Daily Multi-Vitamin] tablet 1 tab PO DAILY RF: 0 ondansetron HCl 8 mg Tablet 8 mg PO Q8H PRN (Reason: Nausea) RF: 0 lisinopril 10 mg Tablet 10 mg PO QAM RF: 0 fluvoxamine 50 mg Tablet 50 mg PO HS RF: 0 hydrochlorothiazide 12.5 mg Tablet 12.5 mg PO QAM RF: 0 Lactaid Fast Act 9,000 unit Tablet 9,000 unit PO AC PRN (Reason: Lactose Intolerance) RF: 0 loratadine 10 mg Tablet 10 mg PO DAILY PRN (Reason: Allergy Symptoms) RF: 0 diclofenac sodium 1 % gel 4 g TOPICAL QID RF: 0 Discharge Orders: Discharge Order (Routine); Ordered 10/09/20 Ordered By: Hugo Patel/Other Patient Handouts: COVID-19 Home Care, Disinfecting Your Home of COVID-19, Simple Ways to Avoid COVID-19 Admission Data Admit Date/Time: 10/06/20 12:52 Attending Provider: Hugo Polanco Admit Provider: John Chin Primary Care Provider: Elijah Henderson Other Interventions: Discharge Summary Assessment (RN) Last Done: 10/09/20 11:20 Coding Level of Care Code D/C Day Management >30 mins Diagnoses COVID-19 U07.1 Acute respiratory failure with hypoxia J96.01 Schizophrenia F20.9 Hyponatremia E87.1 HAIDER (obstructive sleep apnea) G47.33 Gastroesophageal reflux disease K21.9 Hypertension I10 DVT prophylaxis Z29.9
== END 2020-10-09 12:05 | disposition home or self-care (01) | DRG 177 ==
LOC: ED 09:43 → SUATTDRO 12:52 → EDINP 12:52 → 2S 12:52 → 3E 10-07 12:18

== ENCOUNTER 2025-02-03 15:26 | Inpatient (IN) ==
--- NOTE | 2025-02-03 16:11 | Emergency Department Note ---
Impression & Plan Hypertension, Intellectual disability, Tachycardia, Shaking, Dizziness ED Provider Note NAME: ANNAMARIE MEANS AGE: 44 SEX: M : 1980 ARRIVES VIA: Walk-In INFORMANT: [Patient][caregiver] ED PROVIDER(S): [Carmelo Hunter MD] CHIEF COMPLAINT: Hypertension, palpitations, chest pain HISTORY OF PRESENT ILLNESS: The patient is a 44-year-old male who last week was a little bit shaky. Over the weekend, he complained of some dizziness and actually slid out of bed at least once. Today, he slept most of the day and then when he awoke, was more shaky complaining of chest pain and palpitations. He had a high heart rate and high blood pressure, he was brought to the emergency room. The patient has not had any medication changes. He has had some nausea the last few days, he has had some gagging. He has not had cough or congestion. No fever, no respiratory complaints. No urinary complaints. PMHx/PSHx/Social Hx: See Below PHYSICAL EXAM: GENERAL: Patient is in no acute distress. HEENT: No acute trauma, normocephalic atraumatic, mucous membranes moist, no nasal congestion. NECK: No stridor, no adenopathy, no meningismus, trachea is midline. LUNGS: Clear to auscultation bilaterally, no wheeze, no rhonchi, breath sounds equal. Breath sounds are diminished bilaterally. HEART: Tachycardic, regular rhythm, no murmurs. ABDOMEN: Soft, nontender, no peritonitis. Obese. EXTREMITIES: No cyanosis, full range of motion of all the joints without pain or difficulty. NEUROLOGIC: Awake and alert, no acute motor or sensory deficits, no focal weakness. Mental disability noted. Patient does have brisk patellar reflexes bilaterally. SKIN: No jaundice, no diaphoresis. DIFFERENTIAL DIAGNOSIS: Sepsis or bacteremia, UTI, dysrhythmia, PE, MN, electrolyte imbalance, medication reaction, serotonin syndrome, among others. EMERGENCY DEPARTMENT PROCEDURES: MEDICAL DECISION MAKING: There is no leukocytosis or concerning anemia. There is a normal platelet count. No coagulopathy. No renal failure or significant electrolyte abnormality. Lactic acid level is not elevated making sepsis less likely. No concerning liver enzyme elevation. BNP was not elevated making fluid overload/CHF unlikely. The patient appeared to be in a euthyroid state. ECG showed a sinus tachycardia, no dysrhythmia. Cardiac enzyme testing x 1 was not consistent with acute cardiac injury. Urinalysis did not show infection. Chest x-ray showed a very poor inspiratory effort but no focal infiltrate, no true CHF. On exam, the patient was somewhat shaky, a bit hyperreflexive, hypertensive and tachycardic. The patient did receive IV cefepime as empiric antibiotic coverage. He received 500 cc of IV saline. The patient's presentation may in fact be a result of his medications. Serotonin syndrome is a consideration given the medications he takes daily. No findings to suggest sepsis, no findings to suggest significant metabolic derangement. I have not been aggressive treating his blood pressure or tachycardia as, these values may be compensatory. I do think the patient deserves hospitalization, further care, observation. I did speak with the patient's caregivers, I spoke with case management. The on- call hospitalist was consulted. Prior/Outside records/notes reviewed: None ECG per my interpretation: Indication was chest pain. The ECG shows a sinus tachycardia with a rate of 123. There was no ST elevation, no PVCs. The QTc was 438. Continuous Cardiac Monitoring per my interpretation: An order was placed for continuous cardiac monitoring. The monitor shows a rate of 121 with sinus tachycardia. Imaging/x-ray results per my interpretation: Chest x-ray shows a very poor inspiratory effort, this film looks similar to previous films. No obvious pneumonia or CHF. Chronic Medical/Social conditions affecting care: Intellectual disability Care/Management discussed with: Case management, the on-call hospitalist. Level of care consideration(s): After review of the information above and other included data: --I believe the patient requires escalation of care to admission DISPOSITION: Admission Past Med/Surg History Problem List (Updated 02/03/25 @ 18:01 by Carmelo Hunter MD) Dizziness (Acute) Shaking (Acute) Tachycardia (Acute) Intellectual disability (Acute) Hypertension (Acute) BMI 45.0-49.9, adult Iliotibial band syndrome, left leg Class 3 obesity Hypothyroidism Impulse control disorder Carpal tunnel syndrome, right SIADH (syndrome of inappropriate ADH production) Leg swelling Pain of left calf Intellectual disability Bipolar disorder History of COVID-19 (Acute) Globus sensation Foot pain Prediabetes Current use of proton pump inhibitor Nocturnal hypoxemia Severe obstructive sleep apnea Sensorineural hearing loss (SNHL) of both ears Clogged ear Acquired deviated nasal septum Change in hearing Throat fullness Cough Vomiting GERD (gastroesophageal reflux disease) Anemia, mild Hyponatremia Asthma Exertional dyspnea Kidney stones (Chronic) Aspiration into airway HAIDER (obstructive sleep apnea) Abdominal pain Chest pain due to GERD Vomiting Irritable bowel syndrome with diarrhea Schizophrenia (Acute 03/19/13) ? not listed on diagnoses from [facility] Record Hypertension (Chronic) ? not listed on medical diagnosises from [facility] Record Depression (Acute) Chronic diarrhea Anxiety state, unspecified (Acute 03/19/13) Gastroesophageal reflux disease (Acute 02/12/13) Hyperlipidemia (Acute) Medical History Morbid obesity Agitation Hyponatremia Acute respiratory failure with hypoxia DVT prophylaxis Aspiration pneumonia OCD (obsessive compulsive disorder) Tachycardia Esophageal dysfunction Bipolar depression History of ulcerative colitis Insomnia Intermittent explosive disorder Kidney stone (03/19/13) Lactose intolerance Learning disabilities Oppositional defiant disorder (03/19/13) Psychosis Scoliosis Spina bifida occulta Surgical History Surgical history unknown Family History Father Hypertension Grandmother (Maternal) Breast cancer Other Impaired fasting glucose Kidney stone Denies family history of Colon cancer Ovarian cancer Prostate cancer Myocardial infarction Social History Smoking Status: Never smoker Second Hand Exposure: No; Do You Dip or Chew Tobacco: No; Hx Alcohol Use: No Hx Substance Use: No Preferred Language: Portuguese Communication Ability: Impaired Communication Ability Comment: unknown - sedated Visual Impairment: No Limitations 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: Normal Public Relations Senior Associate Required: No Beliefs That Will Affect Care: None marital status: Single Current Living Situation: Personal Care Facility Current Living Situation Comment: [facility] current occupational status: unemployed Feels Safe at Home: Yes Childhood Exposure to Second-Hand Smoke: Yes caffeine: Yes Dental Care, Regularly: Yes Physical Activity Frequency: Does not Exercise Seatbelt Use: sometimes Sunscreen Use: Yes Gender Identity: Male Assistive Devices: Oxygen - Continuous Allergies Allergies Allergy/AdvReac Type Severity Reaction Status Date / Time lactose Allergy Unknown Unknown Verified 01/23/25 11:03 pollen extracts Allergy Unknown Unknown Verified 01/23/25 11:03 Home Meds Home Medications Medication Instructions Recorded Confirmed aripiprazole (2 month) 960 mg/3.2 960 mg IM .ONCE EVERY 56 DAYS 04/18/23 02/03/25 mL susp, extended rel IM syringe (Abilify Asimtufii) clonidine HCl 0.3 mg tablet 0.3 mg PO HS 04/18/23 02/03/25 oxcarbazepine 300 mg tablet 900 mg PO HS 08/15/23 02/03/25 oxcarbazepine 600 mg tablet 600 mg PO QAM 08/15/23 02/03/25 clonidine HCl 0.1 mg tablet 0.1 mg PO QAM 01/12/24 02/03/25 urea 10 % topical cream 1 applic topical DAILY 01/12/24 02/03/25 doxepin 50 mg capsule 50 mg PO HS 09/13/24 02/03/25 trazodone 150 mg tablet 300 mg PO HS 09/13/24 02/03/25 polyethylene glycol 3350 17 17 g PO DAILY PRN Constipation 11/20/24 02/03/25 gram/dose oral powder (Miralax) albuterol sulfate 90 mcg/actuation 2 puff inhalation Q4H PRN 02/03/25 02/03/25 aerosol inhaler SOB/ACUTE ASTHMA EXACERBATION famotidine 20 mg tablet 20 mg PO . NEEDED PRN GERD 02/03/25 02/03/25 haloperidol 10 mg tablet 10 mg PO .DAILY AT 8PM 02/03/25 02/03/25 haloperidol 2 mg tablet 2 mg PO .DAILY AT 8PM 02/03/25 02/03/25 haloperidol 2 mg tablet 2 mg PO DAILY PRN ANGER AND 02/03/25 02/03/25 AGGRESSION haloperidol 5 mg tablet 5 mg PO .DAILY AT NOON 02/03/25 02/03/25 ipratropium 0.5 mg-albuterol 3 mg 3 ml inhalation .EVERY 4-6 HOURS 02/03/25 02/03/25 (2.5 mg base)/3 mL nebulization PRN Wheezing soln lactase 3,000 unit tablet 6,000 unit PO TID PRN DAIRY 02/03/25 02/03/25 CONSUMPTION latanoprost 0.005 % eye drops 1 drp OPB HS 02/03/25 02/03/25 multivitamin (Daily-Tobias tablet) 1 tab PO DAILY 02/03/25 02/03/25 perphenazine 8 mg tablet 8 mg PO QPM 02/03/25 02/03/25 sucralfate 1 gram tablet (Carafate) 1 g PO AC 02/03/25 02/03/25 Previous Rx's Medication Instructions Recorded blood glucose control, normal #1 ea 07/23/24 (OneTouch Verio Mid Control solution) blood sugar diagnostic (OneTouch #25 ea 07/23/24 Verio test strips) lancets 28 gauge ([facility] Safety #100 ea 07/23/24 Lancets) acetaminophen 500 mg capsule 500 mg PO QID PRN pain #90 caps 09/10/24 fluticasone propionate 115 2 puff inhalation BID #12 grams 10/16/24 mcg-salmeterol 21 mcg/actuation HFA inhaler (Advair HFA) docusate sodium 100 mg capsule 100 mg PO BID #180 caps 11/25/24 linagliptin 5 mg tablet (Tradjenta) 5 mg PO DAILY #90 tabs 11/25/24 lisinopril 10 mg tablet 10 mg PO QAM #90 tabs 11/25/24 pantoprazole 40 mg tablet,delayed 40 mg PO BID #180 tabs 11/25/24 release levothyroxine 112 mcg tablet 112 mcg PO DAILY #30 tabs 12/23/24 sodium chloride 0.65 % nasal spray 1 spray intranasal BID PRN dry 01/01/25 aerosol (Saline Mist) nasal passages #45 mL loratadine 10 mg tablet 10 mg PO DAILY PRN Allergy 01/22/25 Symptoms #30 tabs Results & Data (ED) Vital Signs Vital Signs - 24 hr 02/03/25 15:37 02/03/25 16:01 02/03/25 16:10 Temperature 36.1 C L Temperature Source Skin Pulse Rate 125 H 128 H Pulse Rate [Apical] Pulse Rate from SpO2 Sensor Respiratory Rate 26 H Respiratory Effort / Characteristics Non-Labored Spontaneous Respiratory Depth Normal Respiratory Pattern Tachypnea Blood Pressure 167/107 H 121/92 Blood Pressure [Right Arm] Blood Pressure Mean 127 105 Blood Pressure Mean [Right Arm] Pulse Oximetry 95 Oxygen Delivery Method Room Air Sepsis Recent Fever Within 48 Hours No Sepsis New/Unexplained Change in Mental Status N/A Sepsis Action Taken by Nursing No Action Required 02/03/25 16:15 02/03/25 16:50 02/03/25 16:50 Temperature Temperature Source Pulse Rate Pulse Rate [Apical] 126 H Pulse Rate from SpO2 Sensor 128 H Respiratory Rate 28 H 28 H Respiratory Effort / Characteristics Respiratory Depth Respiratory Pattern Blood Pressure Blood Pressure [Right Arm] 152/104 H Blood Pressure Mean Blood Pressure Mean [Right Arm] 120 Pulse Oximetry 94 95 Oxygen Delivery Method Room Air Room Air Sepsis Recent Fever Within 48 Hours Sepsis New/Unexplained Change in Mental Status Sepsis Action Taken by Nursing 02/03/25 16:50 02/03/25 16:57 02/03/25 17:00 Temperature Temperature Source Pulse Rate 135 H Pulse Rate [Apical] Pulse Rate from SpO2 Sensor 132 H Respiratory Rate 22 Respiratory Effort / Characteristics Respiratory Depth Respiratory Pattern Blood Pressure 140/87 Blood Pressure [Right Arm] Blood Pressure Mean 97 Blood Pressure Mean [Right Arm] Pulse Oximetry 93 Oxygen Delivery Method Room Air Room Air Sepsis Recent Fever Within 48 Hours Sepsis New/Unexplained Change in Mental Status Sepsis Action Taken by Retirement Medications Current Medication List: was personally reviewed by me Laboratory Data Attestation: I reviewed the patient's lab results. 02/03/25 15:55 02/03/25 15:55 Lab Results 02/03/25 02/03/25 02/03/25 Range/Units 15:55 16:27 Unknown WBC 9.82 (4.8-10.8) K/ul RBC 5.00 (4.70-6.10) M/uL Hgb 15.1 (14.0-18.0) g/dl Hct 44.8 (42.0-52.0) % MCV 89.6 (80.0-100.0) fL MCH 30.2 (25.0-34.0) pg MCHC 33.7 (32.0-36.0) g/dL RDW Std Deviation 39.8 (36.4-46.3) fL RDW Coeff of [place] 12.2 (11.5-14.5) % Plt Count 223 (130-400) K/uL MPV 9.4 (9.4-12.4) fL Immature Gran % (Auto) 0.7 % Neut % (Auto) 69.2 % Lymph % (Auto) 22.0 % [place] % (Auto) 7.3 % Eos % (Auto) 0.5 % Baso % (Auto) 0.3 % Neut # (Auto) 6.79 H (1.40-6.50) K/uL Lymph # (Auto) 2.16 (1.20-3.40) K/uL [place] # (Auto) 0.72 H (0.11-0.59) K/uL Eos # (Auto) 0.05 (0.00-0.50) K/uL Baso # (Auto) 0.03 (0.00-0.20) K/uL Immature Gran # (Auto) 0.07 (0.01-0.20) K/uL PT 10.4 (9.0-12.0) Seconds INR 1.0 (0.9-1.1) APTT 26 (21-31) Seconds PTT Ratio 1.0 Sodium 136 (136-145) mmol/L Potassium 4.4 (3.5-5.1) mmol/L Chloride 99 (98-107) mmol/L Carbon Dioxide 32 (21-32) mmol/L Anion Gap 5 (3-11) BUN 11 (6-23) mg/dl Creatinine 0.79 (0.6-1.4) mg/dl Est Cr Clr Drug Dosing 125.4 ml/min eGFR 113.75 BUN/Creatinine Ratio 13.9 (10-20) Glucose 148 H (70-99(Fasting)) mg/dl Lactate 2.0 (0.4-2.0) mmol/L Calcium 10.1 (8.6-10.3) mg/dl Magnesium 1.8 (1.7-2.4) mg/dl Total Bilirubin 0.4 (0.2-1.0) mg/dl AST 24 (13-39) U/L ALT 26 (7-52) U/L Alkaline Phosphatase 109 H (34-104) U/L Troponin I High Sens 3.9 (0-20) pg/ml B-Natriuretic Peptide 6 (0-100) pg/ml Total Protein 7.5 (6.0-8.3) gm/dl Albumin 4.7 (3.4-5.0) gm/dl Globulin 2.8 (2.5-4.0) gm/dl Albumin/Globulin Ratio 1.7 (0.9-2) TSH 0.849 (0.300-4.500) uIu/ml Urine Color Yellow Urine Appearance Clear (Clear) Urine pH 6.5 (4.5-7.5) Ur Specific [place]cdonald 1.019 (1.000-1.030) Urine Protein Negative (Negative) Urine Glucose (UA) Negative (Negative) Urine Ketones Negative (Negative) Urine Blood Negative (Negative) Urine Nitrite Negative (Negative) Urine Bilirubin Negative (Negative) Urine Urobilinogen Negative (Negative) Ur Leukocyte Esterase Negative (Negative) Administered Medications Discontinued Medications Cefepime HCl (Maxipime 2000mg) 2,000 mg in 20 mls @ 5 mls/min IV NOW STA; Protocol Stop: 02/03/25 16:08 Last Admin: 02/03/25 16:48 Dose: 5 mls/min Documented By: ROMEL Sodium Chloride (Nss) 500 mls @ 999 mls/hr IV .Q31M ONE Stop: 02/03/25 16:36 Last Infusion: 02/03/25 16:44 Dose: Infused Documented By: Admin: 02/03/25 16:13 Dose: 999 mls/hr Documented By: DONA Labetalol HCl (Labetalol Hcl Iv 5 Mg/Ml 20ml) 10 mg IV NOW STA Stop: 02/03/25 16:42 Last Admin: 02/03/25 16:48 Dose: Not Given Documented By: ROMEL Imaging Data Radiologist's Impression: Chest X-Ray 02/03/25 15:42 EXAM: XR chest 1V portable CLINICAL HISTORY: Chest pain, nonspecific TECHNIQUE: An X-ray image of the chest is obtained in AP projection. COMPARISON: prior 01/02/2025 FINDINGS: Pulmonary Parenchyma: Bilateral increased vascular markings are likely of a congestive etiology Right lower lung patchy infiltrates of infectious/congestive etiology Suspected left-sided mild pleural effusion Heart and Mediastinum: Cardiomegaly with congested vascular hilum Bony Thorax: Bony thorax appears intact without fractures or deformities. Soft Tissues: Soft tissues overlying the chest wall are unremarkable. IMPRESSION: 1. Bilateral increased vascular markings are likely of a congestive etiology (Mildly progressed) 2. Right lower lung patchy infiltrates of infectious/congestive etiology (Newly developed) 3. Suspected left-sided mild pleural effusion (Newly developed) 4. Cardiomegaly (unchanged) 5. Clinical correlation is recommended Electronically signed by Osvaldo Solis 02-03-2025 5:26 PM Discharge Plan Visit Data Chief Complaint: Hypertension Stated Complaint: HIGH BP ED Provider: Carmelo Hunter Discharge Problem: Hypertension, Intellectual disability, Tachycardia, Shaking, Dizziness Patient Disposition: Admitted As Inpatient Condition: Fair Forms Stand Alone Forms: My [facility] Prescriptions Prescriptions: No Action acetaminophen 500 mg capsule 500 mg PO QID PRN (Reason: pain) Qty: 90 0RF polyethylene glycol 3350 [Miralax] 17 gram/dose powder 17 g PO DAILY PRN (Reason: Constipation) docusate sodium 100 mg capsule 100 mg PO BID Qty: 180 3RF pantoprazole 40 mg tablet,delayed release (DR/EC) 40 mg PO BID Qty: 180 3RF Tradjenta 5 mg tablet 5 mg PO DAILY Qty: 90 3RF lisinopril 10 mg tablet 10 mg PO QAM Qty: 90 3RF levothyroxine 112 mcg tablet 112 mcg PO DAILY Qty: 30 2RF Rx Instructions: Take first thing in the morning 30-45 minutes before any other oral intake. Take one tablet by mouth every other day for the first week every day thereafter. Saline Mist 0.65 % aerosol,spray 1 spray intranasal BID PRN (Reason: dry nasal passages) Qty: 45 1RF loratadine 10 mg tablet 10 mg PO DAILY PRN (Reason: Allergy Symptoms) Qty: 30 4RF oxcarbazepine 600 mg tablet 600 mg PO QAM Abilify Asimtufii 960 mg/3.2 mL suspension,extended rel syring 960 mg IM .ONCE EVERY 56 DAYS Rx Instructions: every 56 days clonidine HCl 0.3 mg tablet 0.3 mg PO HS clonidine HCl 0.1 mg tablet 0.1 mg PO QAM urea 10 % cream 1 applic topical DAILY Rx Instructions: APPLY TO BOTH FEET oxcarbazepine 300 mg tablet 900 mg PO HS (DME) OneTouch Verio test strips Strip See Rx Instructions .Route Qty: 25 2RF Rx Instructions: Test daily As directed (DME) blood glucose control, normal [OneTouch Verio Mid Control] Solution See Rx Instructions .Route Qty: 1 0RF Rx Instructions: As directed (DME) lancets [CareTouch Safety Lancets] 28 gauge misc See Rx Instructions .Route Qty: 100 0RF Rx Instructions: As directed doxepin 50 mg capsule 50 mg PO HS trazodone 150 mg tablet 300 mg PO HS Advair HFA 115-21 mcg/actuation HFA aerosol inhaler 2 puff inhalation BID Qty: 12 12RF albuterol sulfate 90 mcg/actuation HFA aerosol inhaler 2 puff inhalation Q4H PRN (Reason: SOB/ACUTE ASTHMA EXACERBATION) multivitamin [Daily-Tobias] Tablet 1 tab PO DAILY sucralfate [Carafate] 1 gram tablet 1 g PO AC Rx Instructions: 3 X A DAY BEFORE MEALS ipratropium-albuterol 0.5 mg-3 mg(2.5 mg base)/3 mL solution for nebulization 3 ml inhalation .EVERY 4-6 HOURS MDD UP TO 6 TIMES PER DAY PRN (Reason: Wheezing) perphenazine 8 mg tablet 8 mg PO QPM Rx Instructions: TAKE DAILY AT 8 PM latanoprost 0.005 % drops 1 drp OPB HS lactase [Lactase Enzyme] 3,000 unit Tablet 6,000 unit PO TID PRN (Reason: DAIRY CONSUMPTION) Rx Instructions: administer with first bite of dairy food haloperidol 5 mg tablet 5 mg PO .DAILY AT NOON haloperidol 10 mg tablet 10 mg PO .DAILY AT 8PM haloperidol 2 mg tablet 2 mg PO .DAILY AT 8PM Rx Instructions: TAKE WITH 10MG DOSE haloperidol 2 mg tablet 2 mg PO DAILY PRN (Reason: ANGER AND AGGRESSION) famotidine 20 mg tablet 20 mg PO . NEEDED PRN (Reason: GERD) Referrals Referrals: Elijah Henderson MD [Primary Care Provider] - Discharge Problem: Hypertension Qualifiers: Hypertension type: unspecified Qualified Code(s): I10 - Essential (primary) hypertension
[2025-02-03] MEDS: SODIUM CHLORIDE 0.9% 500 ML IV ONE (16:13)
[2025-02-03 16:22] LABS: Basophils # (auto) 0.03 K/uL (0.00-0.20); Basophils % (auto) 0.3 %; Eosinophils # (auto) 0.05 K/uL (0.00-0.50); Eosinophils % (auto) 0.5 %; Hematocrit (blood only) 44.8 % (42.0-52.0); Hemoglobin 15.1 g/dl (14.0-18.0); Immature Granulocytes # (auto) 0.07 K/uL (0.01-0.20); Immature Granulocytes % (auto) 0.7 %; Lymphocytes # (auto) 2.16 K/uL (1.20-3.40); Mean Corpuscular Hemoglobin 30.2 pg (25.0-34.0); Mean Corpuscular Hgb Conc 33.7 g/dL (32.0-36.0); Mean Corpuscular Volume 89.6 fL (80.0-100.0); Mean Platelet Volume 9.4 fL (9.4-12.4); Monocytes # (auto) 0.72 K/uL (0.11-0.59); Monocytes % (auto) 7.3 %; Neutrophils # (auto) 6.79 K/uL (1.40-6.50); Neutrophils % (auto) 69.2 %; Platelet Count 223 K/uL (130-400); RDW Coefficient of Variation 12.2 % (11.5-14.5); RDW Standard Deviation 39.8 fL (36.4-46.3); White Blood Count 9.82 K/ul (4.8-10.8)
[2025-02-03 16:36] LABS: Appearance Urine Clear (Clear); Bilirubin Urine Negative (Negative); Blood Urine Negative (Negative); Color Urine Yellow; Glucose Urine UA Negative (Negative); Ketones Urine Negative (Negative); Leukocyte Esterase Urine Negative (Negative); Nitrite Urine Negative (Negative); Protein Urine Negative (Negative); Specific Gravity Urine 1.019 (1.000-1.030); Urobilinogen Urine Negative (Negative); pH Urine 6.5 (4.5-7.5)
[2025-02-03 16:39] LABS: Albumin Globulin Ratio 1.7 (0.9-2); Albumin Level 4.7 gm/dl (3.4-5.0); BUN Creatinine Ratio 13.9 (10-20); Bilirubin,Total 0.4 mg/dl (0.2-1.0); Calcium 10.1 mg/dl (8.6-10.3); Creatinine Clr Calc Pharmacy 125.4 ml/min; Globulin 2.8 gm/dl (2.5-4.0); Magnesium 1.8 mg/dl (1.7-2.4); Potassium 4.4 mmol/L (3.5-5.1); Total Protein 7.5 gm/dl (6.0-8.3)
[2025-02-03 16:45] LABS: Troponin I High Sensitivity 3.9 pg/ml (0-20)
[2025-02-03] MEDS: CEFEPIME 2000MG 2,000 MG/20 ML SYR IV STA (16:48)
[2025-02-03] MEDS: LABETALOL HCL IV 5 MG/ML 20ML IV STA (16:48)
[2025-02-03 16:55] LABS: Thyroid Stimulating Hormone 0.849 uIu/ml (0.300-4.500)
[2025-02-03 16:57] LABS: Partial Thromboplastin Time 26 Seconds (21-31); Prothrombin Time 10.4 Seconds (9.0-12.0)
--- NOTE | 2025-02-03 17:27 | XRay Report ---
EXAM: XR chest 1V portable CLINICAL HISTORY: Chest pain, nonspecific TECHNIQUE: An X-ray image of the chest is obtained in AP projection. COMPARISON: prior 01/02/2025 FINDINGS: Pulmonary Parenchyma: Bilateral increased vascular markings are likely of a congestive etiology Right lower lung patchy infiltrates of infectious/congestive etiology Suspected left-sided mild pleural effusion Heart and Mediastinum: Cardiomegaly with congested vascular hilum Bony Thorax: Bony thorax appears intact without fractures or deformities. Soft Tissues: Soft tissues overlying the chest wall are unremarkable. IMPRESSION: 1. Bilateral increased vascular markings are likely of a congestive etiology (Mildly progressed) 2. Right lower lung patchy infiltrates of infectious/congestive etiology (Newly developed) 3. Suspected left-sided mild pleural effusion (Newly developed) 4. Cardiomegaly (unchanged) 5. Clinical correlation is recommended Electronically signed by Osvaldo Solis 02-03-2025 5:26 PM
[2025-02-03] MEDS: OPTIRAY 320 125ml IV ONE (18:11)
--- NOTE | 2025-02-03 19:00 | History & Physical Report ---
Date of Service February 03, 2025 Assessment & Plan (1) Dizziness: (2) Shaking: (3) Tachycardia: (4) Hypertension: Plan Guerrero Telles is a 44 yr M w/ PMHx of intellectual disability, HAIDER, HTN, and schizophrenia, presenting with new-onset shaking of limbs since Monday. Negative troponins and BNP. No leukocytosis. ECG showing sinus tachy. #Cardiopulmonary symptoms - negative troponin, BNP 6 - ECG: sinus tachycardia - CXR: bilateral increased vascular markings, right lower lung patchy infiltrates, left-sided mild pleural effusion, and unchanged cardiomegaly - pending CTA chest interpretation - continue 2000 mg IV Ceftriaxone #Schizophrenia/Depression/Bipolar Disorder - concern for adverse effects of medication, possible serotonin syndrome - discontinue scheduled haloperidol and doxepin - continue aripiprazole, perphenazine, trazodone, oxcarbazepine - resume immediately after medication side effect is ruled out #HTN - 167/107 -> 124/100 - continue lisinopril, clonidine #HAIDER - ordered CPAP #GERD - continue pantoprazole, famotidine #Hypothyroidism - continue levothyroxine #Asthma - continue albuterol inhaler, ipratropium-albuterol inhaler, fluticasone- propionate inhaler #Diabetes - continue linagliptin History of Present Illness Chief Complaint: Shakiness and HTN Primary Care Provider: Elijah Henderson MD Guerrero Telles is a 44 yr M w/ PMHx of intellectual disability, HAIDER, HTN, and schizophrenia, presenting with new-onset shaking of limbs since Monday. This afternoon, the patient mentioned he didn't feel good but could not specify what was wrong. His mother reported increased SoB while walking through [employer], prompting the patient to stop walking multiple times to catch his breath. Patient also reports intermittent chest pain, dizziness, and abdominal pain. His mother mentions he has a hx of gagging episodes, which resolved in the past, but began again recently. There have been no changes to medication, no known sick contacts at home, and no changes to daily routine. Allergies Allergy/AdvReac Type Severity Reaction Status Date / Time lactose Allergy Unknown Unknown Verified 01/23/25 11:03 pollen extracts Allergy Unknown Unknown Verified 01/23/25 11:03 Home Medications Medication Instructions Recorded Confirmed Type aripiprazole (2 month) 960 mg/3.2 960 mg IM .ONCE EVERY 56 DAYS 04/18/23 02/03/25 History mL susp, extended rel IM syringe (Abilify Asimtufii) clonidine HCl 0.3 mg tablet 0.3 mg PO HS 04/18/23 02/03/25 History oxcarbazepine 300 mg tablet 900 mg PO HS 08/15/23 02/03/25 History oxcarbazepine 600 mg tablet 600 mg PO QAM 08/15/23 02/03/25 History clonidine HCl 0.1 mg tablet 0.1 mg PO QAM 01/12/24 02/03/25 History urea 10 % topical cream 1 applic topical DAILY 01/12/24 02/03/25 History blood glucose control, normal #1 ea 07/23/24 02/03/25 Rx ([employer] Verio Mid Control solution) blood sugar diagnostic (OneTouch #25 ea 07/23/24 02/03/25 Rx Verio test strips) lancets 28 gauge (Zoe MajesteToPrecognate Safety #100 ea 07/23/24 02/03/25 Rx Lancets) acetaminophen 500 mg capsule 500 mg PO QID PRN pain #90 caps 09/10/24 02/03/25 Rx doxepin 50 mg capsule 50 mg PO HS 09/13/24 02/03/25 History trazodone 150 mg tablet 300 mg PO HS 09/13/24 02/03/25 History fluticasone propionate 115 2 puff inhalation BID #12 grams 10/16/24 02/03/25 Rx mcg-salmeterol 21 mcg/actuation HFA inhaler (Advair HFA) polyethylene glycol 3350 17 17 g PO DAILY PRN Constipation 11/20/24 02/03/25 History gram/dose oral powder (Miralax) docusate sodium 100 mg capsule 100 mg PO BID #180 caps 11/25/24 02/03/25 Rx linagliptin 5 mg tablet (Tradjenta) 5 mg PO DAILY #90 tabs 11/25/24 02/03/25 Rx lisinopril 10 mg tablet 10 mg PO QAM #90 tabs 11/25/24 02/03/25 Rx pantoprazole 40 mg tablet,delayed 40 mg PO BID #180 tabs 11/25/24 02/03/25 Rx release levothyroxine 112 mcg tablet 112 mcg PO DAILY #30 tabs 03/24/25 05/05/25 Rx sodium chloride 0.65 % nasal spray 1 spray intranasal BID PRN dry 01/01/25 02/03/25 Rx aerosol (Saline Mist) nasal passages #45 mL loratadine 10 mg tablet 10 mg PO DAILY PRN Allergy 01/22/25 02/03/25 Rx Symptoms #30 tabs albuterol sulfate 90 mcg/actuation 2 puff inhalation Q4H PRN 02/03/25 02/03/25 History aerosol inhaler SOB/ACUTE ASTHMA EXACERBATION famotidine 20 mg tablet 20 mg PO . NEEDED PRN GERD 02/03/25 02/03/25 History haloperidol 10 mg tablet 10 mg PO .DAILY AT 8PM 02/03/25 02/03/25 History haloperidol 2 mg tablet 2 mg PO .DAILY AT 8PM 02/03/25 02/03/25 History haloperidol 2 mg tablet 2 mg PO DAILY PRN ANGER AND 02/03/25 02/03/25 History AGGRESSION haloperidol 5 mg tablet 5 mg PO .DAILY AT NOON 02/03/25 02/03/25 History ipratropium 0.5 mg-albuterol 3 mg 3 ml inhalation .EVERY 4-6 HOURS 02/03/25 02/03/25 History (2.5 mg base)/3 mL nebulization PRN Wheezing soln lactase 3,000 unit tablet 6,000 unit PO TID PRN DAIRY 02/03/25 02/03/25 History CONSUMPTION latanoprost 0.005 % eye drops 1 drp OPB HS 02/03/25 02/03/25 History multivitamin (Daily-Tobias tablet) 1 tab PO DAILY 02/03/25 02/03/25 History perphenazine 8 mg tablet 8 mg PO QPM 02/03/25 02/03/25 History sucralfate 1 gram tablet (Carafate) 1 g PO AC 02/03/25 02/03/25 History Past Med/Surg History Problem List (Updated 02/03/25 @ 18:01 by Carmelo Hunter MD) Dizziness (Acute) Shaking (Acute) Tachycardia (Acute) Intellectual disability (Acute) Hypertension (Acute) BMI 45.0-49.9, adult Iliotibial band syndrome, left leg Class 3 obesity Hypothyroidism Impulse control disorder Carpal tunnel syndrome, right SIADH (syndrome of inappropriate ADH production) Leg swelling Pain of left calf Intellectual disability Bipolar disorder History of COVID-19 (Acute) Globus sensation Foot pain Prediabetes Current use of proton pump inhibitor Nocturnal hypoxemia Severe obstructive sleep apnea Sensorineural hearing loss (SNHL) of both ears Clogged ear Acquired deviated nasal septum Change in hearing Throat fullness Cough Vomiting GERD (gastroesophageal reflux disease) Anemia, mild Hyponatremia Asthma Exertional dyspnea Kidney stones (Chronic) Aspiration into airway HAIDER (obstructive sleep apnea) Abdominal pain Chest pain due to GERD Vomiting Irritable bowel syndrome with diarrhea Schizophrenia (Acute 03/19/13) ? not listed on diagnoses from [facility] Record Hypertension (Chronic) ? not listed on medical diagnosises from [facility] Record Depression (Acute) Chronic diarrhea Anxiety state, unspecified (Acute 03/19/13) Gastroesophageal reflux disease (Acute 02/12/13) Hyperlipidemia (Acute) Medical History Morbid obesity Agitation Hyponatremia Acute respiratory failure with hypoxia DVT prophylaxis Aspiration pneumonia OCD (obsessive compulsive disorder) Tachycardia Esophageal dysfunction Bipolar depression History of ulcerative colitis Insomnia Intermittent explosive disorder Kidney stone (03/19/13) Lactose intolerance Learning disabilities Oppositional defiant disorder (03/19/13) Psychosis Scoliosis Spina bifida occulta Surgical History Surgical history unknown Family History Father Hypertension Grandmother (Maternal) Breast cancer Other Impaired fasting glucose Kidney stone Denies family history of Colon cancer Ovarian cancer Prostate cancer Myocardial infarction Social History Smoking Status: Never smoker Second Hand Exposure: No; Do You Dip or Chew Tobacco: No; Hx Alcohol Use: No Hx Substance Use: No Preferred Language: Albanian Communication Ability: Impaired Communication Ability Comment: unknown - sedated Visual Impairment: No Limitations 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: Normal Stores Assistant Required: No Beliefs That Will Affect Care: None marital status: Single Current Living Situation: Personal Care Facility Current Living Situation Comment: [facility] current occupational status: unemployed Feels Safe at Home: Yes Childhood Exposure to Second-Hand Smoke: Yes caffeine: Yes Dental Care, Regularly: Yes Physical Activity Frequency: Does not Exercise Seatbelt Use: sometimes Sunscreen Use: Yes Gender Identity: Male Assistive Devices: Walker Review of Systems Review of Systems: All systems reviewed & are unremarkable except as noted in HPI & below Physical Exam Constitutional: WD/WN, vitals as above Respiratory: normal respiratory effort, lungs clear to auscultation Cardiovascular: RRR, no murmur, no edema Gastrointestinal (Abdomen): present bowel sounds, tenderness to palpation in RUQ and LLQ Neurologic: alert and responsive, speech is slow Psychiatric: baseline intellectual disability Results & Data Results & Data Vital Signs (Past 12 Hours) Vital Signs Temp Pulse Pulse Resp BP BP Pulse Ox 02/03/25 17:00 140/87 02/03/25 16:57 135 H 22 93 02/03/25 16:50 02/03/25 16:50 02/03/25 16:50 126 H 28 H 152/104 H 95 02/03/25 16:15 28 H 94 02/03/25 16:10 128 H 02/03/25 16:01 121/92 02/03/25 15:37 36.1 C L 125 H 26 H 167/107 H 95 O2 Del Method 02/03/25 17:00 02/03/25 16:57 Room Air 02/03/25 16:50 Room Air 02/03/25 16:50 Room Air 02/03/25 16:50 Room Air 02/03/25 16:15 02/03/25 16:10 02/03/25 16:01 02/03/25 15:37 Room Air Code Status & VTE Plan VTE Prophylaxis Plan VTE Prophylaxis will be ordered: Yes Supervising Physician Co-Signing Physician Notes contact if he needs calming/reassurance is [facility] Staff - [phone] I personally examined the patient and verified all sotomayor points of history and exam, discussed case, and agree with decision making with Dr Castaneda and Veda Altamirano MS4 Generally not feeling well, weak and shaky, a bit lightheaded. History largely secondhand from his caregiver. She also notes that over the last several days he has been gagging a lot. No vomiting but a lot of gagging and therefore a lot less p.o. intake. Does apparently run constipated, but just had a bowel movement earlier. Vitals noted, in general he appears fatigued, he has somewhat dry mucous membranes. Cardio is tachycardic to about 130, seems to be regular sinus on EKG no rubs murmurs or gallops. Lungs show faint wheeze throughout, no accessory muscle use no overt appearance of dyspnea. Abdomen is soft moderately distended nondescript central/periumbilical tenderness without guarding or rebound, and slightly more tenderness right middle/upper abdomen again without guarding or rebound, it seems to be more here than truly right upper quadrant. I do not feel any umbilical or inguinal hernias or lump s/masses. And again he has no guarding rebound or rigidity. Labs and diagnostics noted. Tachycardia/feeling weakI suspect the tachycardia is most likely from dehydration. He has no fever or leukocytosis, given that his history is a bit difficult to discern we do have him on empiric ceftriaxone in case the tachycardia is septic mediated until proven otherwise. At the same time, bigger suspicion that either gagging led to poor p.o. intake led to dehydration led to tachycardia, or abdominal painpossibly due to constipation led to poor p.o. intake and subsequent dehydration followed by tachycardia, or both. IV fluids, follow his vitals, follow serial labs and serial exams. Abdominal painmost likely nondescript and constipation mediated, at the same time he does have his appendix, and this could be early appendicitis versus another process. Given that he overall does not have an ominous abdominal exam, serial exams and further imaging if anything localizes. Otherwise as above. DVT proph - SCDs Resident Activity Tracking Resident Involvement: Resident Care Provided Care Provided: Adult Hospital Medicine (4) Hypertension Hypertension type: unspecified Qualified Code(s): I10 - Essential (primary) hypertension
--- NOTE | 2025-02-03 19:34 | CT Scan Report ---
EXAM: CT angio chest PE protocol CLINICAL HISTORY: Pulmonary Embolism. TECHNIQUE: Contiguous 3.[address] angiographic images of the chest were acquired with the administration of intravenous contrast 119 ml optiary 320 mg/ml . Coronal and sagittal reconstructions were obtained. One of these 3D techniques was utilized: Maximum Intensity Pixel (MIP), 3D Reconstructed Images, Volume Rendered Images, Surface Shaded Rendering. One of the following dose reduction techniques were utilized for this exam: Automated exposure control, adjustment of the mA and/or kV according to patient size, and use of iterative reconstruction. COMPARISON: 02/03/2025 CR chest, 10/06/2020 CT chest FINDINGS: Aorta: The thoracic aorta is normal in caliber. No evidence of aneurysm, dissection, minimal insignificant atherosclerotic changes. The aortic arch and descending thoracic aorta are unremarkable. Pulmonary Arteries: Pulmonary arteries are normal in size and opacification. No evidence of pulmonary embolism. No stenosis or filling defects. Coronary Arteries: Coronary arteries are well-opacified. Mild atherosclerotic changes. Mediastinum: No mediastinal mass or lymphadenopathy. Normal appearance of the thymus. Heart: Normal size and morphology of the heart. No pericardial effusion. Lungs: Lungs are clear with no evidence of consolidation, nodules, or masses. Small left basal atelectasis. No pleural effusion or thickening. Bones: No fractures or lytic/sclerotic lesions of the visualized bony structures. Normal alignment and bone density. Soft Tissues: Normal appearance of the visualized soft tissues. No abnormal masses or fluid collections. IMPRESSION: - No evidence of pulmonary embolism. - Small left basal atelectasis. - No cardiomegaly or pleural effusion. Electronically signed by Osvaldo Solis 02-03-2025 7:34 PM
--- NOTE | 2025-02-03 20:10 | Billing Data ---
Date of Service February 03, 2025 Coding Level of Care Code 18929 INT INP/OBS CARE
[2025-02-03] MEDS ORDERED: LACTASE 3000 UNIT TAB PO PRN (20:17)
[2025-02-03] MEDS ORDERED: haloperidoL 1 MG TAB PO PRN (20:17)
[2025-02-03] MEDS ORDERED: MAGNESIUM HYDROXIDE SUSP 30 ML UDC PO PRN (20:17)
[2025-02-03] MEDS ORDERED: ALUMINUM/MAGNESIUM SUSP 30 ML UDC PO PRN (20:17)
[2025-02-03] MEDS ORDERED: POLYETHYLENE (MIRALAX) 17 GM PACK PO PRN ×2 (20:17)
[2025-02-03] MEDS: ACETAMINOPHEN 325 MG TAB PO STA (22:38)
[2025-02-03] MEDS: LACTATED RINGER'S 1,000 ML IV SCH (22:38)
[2025-02-03] MEDS: PERPHENAZINE 4 MG TAB PO SCH (22:39)
[2025-02-03] MEDS: haloperidoL 1 MG TAB PO SCH (22:40)
[2025-02-03] MEDS: haloperidoL 5 MG TAB PO SCH (22:40)
[2025-02-03] MEDS: OXcarbazepine 150 MG TABLET PO SCH (22:40)
[2025-02-03] MEDS: DOXEPIN HCL 50 MG CAPSULE PO SCH (22:41)
[2025-02-03] MEDS: traZODone HCL 100 MG TAB PO SCH (22:42)
[2025-02-03] MEDS: DOCUSATE SODIUM 100 MG CAP PO SCH (22:48)
[2025-02-03] MEDS: PANTOprazole 40 MG TAB PO SCH (22:58)
[2025-02-03] MEDS: cloNIDine HCL 0.3 MG TAB PO SCH (22:58)
[2025-02-04] MEDS: cefTRIAXone SODIUM 2,000 MG/50 ML BAG IV SCH (04:36)
[2025-02-04] MEDS: LEVOTHYROXINE SODIUM 112 MCG TABLET PO SCH (04:36)
--- NOTE | 2025-02-04 04:56 | Electrocardiogram Report ---
Test Reason : Blood Pressure : */* mmHG Vent. Rate : 123 BPM Atrial Rate : 123 BPM P-R Int : 152 ms QRS Dur : 80 ms QT Int : 306 ms P-R-T Axes : 38 27 2 degrees QTcB Int : 438 ms Sinus tachycardia Otherwise normal ECG When compared with ECG of 12-Dec-2023 20:21, No significant change was found Confirmed by Rodríguez Coughlin ([id number]) on 02/04/2025 4:56:19 AM Referred By: Confirmed By: Rodríguez Coughlin
[2025-02-04] MEDS: SUCRALFATE 1 GM TAB PO SCH (07:49)
[2025-02-04] MEDS: cloNIDine HCL 0.1 MG TAB PO SCH (08:22)
[2025-02-04] MEDS: FLUTICASONE/VILANTEROL 200/25MCG 14 PUFFS/INHALER INH SCH (08:22)
[2025-02-04] MEDS: OXcarbazepine 150 MG TABLET PO SCH (08:23)
[2025-02-04 10:09] LABS: Estimated Average Glucose 120 mg/dl; Hemoglobin A1C 5.8 % (4.5-5.6)
[2025-02-04] MEDS: ACETAMINOPHEN 325 MG TAB PO PRN (10:54)
[2025-02-04] MEDS: haloperidoL 5 MG TAB PO SCH (11:43)
--- NOTE | 2025-02-04 11:54 | Ultrasound Report ---
LEFT LOWER EXTREMITY VENOUS DOPPLER CLINICAL HISTORY: Left lower extremity pain. Evaluate for deep venous thrombus. COMPARISON STUDY: Left lower extremity venous Doppler ultrasound January 23, 2024. TECHNIQUE: Sonography of the deep venous system of the left lower extremity was performed. Compressi on and augmentation were evaluated. FINDINGS: The left common femoral, superficial femoral and popliteal veins were compressible. Augmen tation was normal. Flow was shown within the deep calf vessels. IMPRESSION: No evidence of deep venous thrombus within the left lower extremity. ACT 112: Negative or not required by law. Electronically signed by: Manuel Arreguin M.D. 02/04/2025 11:53 AM
[2025-02-04] MEDS: ONDANSETRON INJ 2 MG/ML 2 ML VIAL IV PRN (12:44)
--- NOTE | 2025-02-04 14:57 | Hospitalist Progress Note ---
Date of Service February 04, 2025 Assessment & Plan (1) Dizziness: (2) Shaking: (3) Tachycardia: (4) Hypertension: Plan Guerrero Telles is a 44 yr M w/ PMHx of intellectual disability, HAIDER, HTN, and schizophrenia, presenting with new-onset shaking of limbs since Monday. Negative troponins and BNP. No leukocytosis. ECG showing sinus tachy. #Cardiopulmonary symptoms - negative troponin, BNP 6 - ECG: sinus tachycardia - CXR: bilateral increased vascular markings, right lower lung patchy infiltrates, left-sided mild pleural effusion, and unchanged cardiomegaly - CTA negative for PE, pleural effusion, and cardiomegaly, but shows small basal atelectasis - duplex US negative for DVT - discontinue IV Ceftriaxone - pending blood cultures #Abdominal Pain - possibly d/t constipation - start Miralax 17 mg TID - start pepcid 20 mg PO BID - continue pantoprazole #Schizophrenia/Depression/Bipolar Disorder - concern for adverse effects of medication, possible serotonin syndrome - restart scheduled haloperidol and doxepin - continue aripiprazole, perphenazine, trazodone, oxcarbazepine - resume immediately after medication side effect is ruled out #HTN - 167/107 -> 124/100 - continue lisinopril, clonidine #HAIDER - ordered CPAP #GERD - continue pantoprazole, famotidine #Hypothyroidism - continue levothyroxine #Asthma - continue albuterol inhaler, ipratropium-albuterol inhaler, fluticasone- propionate inhaler #Diabetes - continue linagliptin Admission and Anticipated Discharge Date Admission Date: February 03, 2025 Supervising Physician Co-Signing Physician Notes contact if he needs calming/reassurance is [facility] Staff - [phone] I personally examined the patient and verified all sotomayor points of history and exam, discussed case, and agree with decision making with Dr Tompkins and Veda Altamirano MS4 walking, feeling better, asks about going home. notes that he ate well today (nursing reiterates) and belly feels better, had BM. does note L leg and knee hurt some (chioma had noted this last night as an ongoing problem for him) vitals noted walking in room nad heent nc at mmm abd mod distention but soft nt no guarding no rebound. LLE calf somewhat tight tender decreased ROM - direct myofascial and LAS -some improvement, pt tolerated well Tachycardia/feeling weakbroad ddx initially but HR responded nicely to fluids suggesting that it was related to dehydration - given that gagging seems to have resolved, poor PO intake may have been related to constipation. seems to have improved. given that the dx was so unclear at first, although he's shown a nice response - would like to see that his HR continues to stay reasonable and PO intake good prior to dc Abdominal painmost likely nondescript and constipation mediated, seems to have resolved - monitor, continue bowel regimen DVT proph - SCDs and ambulation; hopefully home tomorrow Subjective Patient is sitting in bed, eating breakfast. Mother and maxillofacial pathology are not present at bedside. Patient mentions his left leg hurts. He is not shaking as bad as he was yesterday. Communication is limited due to patient's intellectual disability at baseline. Review of Systems Review of Systems: All systems reviewed & are unremarkable except as noted in HPI & below Physical Exam Constitutional: WD/WN, vitals as above Respiratory: normal respiratory effort, lungs clear to auscultation Cardiovascular: RRR, no murmur, slight swelling in L leg, tenderness to palpation in L popliteal fossa and L calf Gastrointestinal (Abdomen): normal bowel sounds, soft, nontender, no hepatosplenomegaly Results & Data Results & Data Vital Signs (Past 12 Hours) Vital Signs Temp Pulse Pulse Resp BP Pulse Ox O2 Del Method 02/04/25 05:27 97 H 02/04/25 03:55 36.8 C 112 H 24 111/78 93 Room Air 02/03/25 22:11 117 H 02/03/25 21:37 114 H 02/03/25 21:30 Room Air 02/03/25 21:30 36.7 C 128 H 24 131/89 95 Room Air 02/03/25 20:17 125 H 22 150/103 H 96 Room Air (4) Hypertension Hypertension type: unspecified Qualified Code(s): I10 - Essential (primary) hypertension
[2025-02-04] MEDS ORDERED: cefTRIAXone SODIUM 2,000 MG/50 ML BAG IV SCH (16:00)
[2025-02-04] MEDS ORDERED: DICLOFENAC SOD 1% GEL 100 GM TUBE EXT PRN (16:10)
[2025-02-04] MEDS: DICLOFENAC SOD 1% GEL 100 GM TUBE EXT SCH (17:42)
--- NOTE | 2025-02-04 18:19 | Billing Data ---
Date of Service February 04, 2025 Coding Level of Care Code 15054 SUB INP/OBS CARE
[2025-02-04] MEDS: FAMOTIDINE 20 MG TAB PO SCH (20:03)
[2025-02-05 07:44] VITALS: RESP 18
[2025-02-05] MEDS: POLYETHYLENE (MIRALAX) 17 GM PACK PO SCH (08:47)
[2025-02-05 11:20] VITALS: BP 144/94; TEMP 97.2; O2SAT 92
[2025-02-05 13:10] VITALS: PULSE 123
--- NOTE | 2025-02-05 14:25 | Discharge Summary ---
Date of Service February 05, 2025 Admission HPI Per Admitting Provider Guerrero Telles is a 44 yr M w/ PMHx of intellectual disability, HAIDER, HTN, and schizophrenia, presenting with new-onset shaking of limbs since Monday. This afternoon, the patient mentioned he didn't feel good but could not specify what was wrong. His mother reported increased SoB while walking through [email or web address], prompting the patient to stop walking multiple times to catch his breath. Patient also reports intermittent chest pain, dizziness, and abdominal pain. His mother mentions he has a hx of gagging episodes, which resolved in the past, but began again recently. There have been no changes to medication, no known sick contacts at home, and no changes to daily routine. Admission Exam (Per Admitting) Constitutional WD/WN, vitals as above Respiratory normal respiratory effort, lungs clear to auscultation Cardiovascular RRR, no murmur, no edema Gastrointestinal (Abdomen) normal bowel sounds, soft, nontender, no hepatosplenomegaly General: NAD Skin: Minor scrapes on forehead and scalp HEENT: Normocephalic, atraumatic Cardiac: RRR, no murmurs or gallops Resp: Clear to auscultation Abdomen: Bowel sounds normal, no tenderness to palpation, no hepatosplenomegaly Musculoskeletal: Tenderness to palpation of L knee Psych: Baseline intellectual disability Constitutional WD/WN, vitals as above Respiratory normal respiratory effort, lungs clear to auscultation Cardiovascular RRR, no murmur, no edema Gastrointestinal (Abdomen) normal bowel sounds, soft, nontender, no hepatosplenomegaly Discharge Data Consultations 02/03/25 17:23 ED Decision to Admit Stat Hospital Course (1) Dizziness: (2) Shaking: (3) Tachycardia: (4) Hypertension: Plan Guerrero Telles is a 44 yr M w/ PMHx of intellectual disability, HAIDER, HTN, and schizophrenia, that presented with new-onset shaking of limbs, dyspnea, and chest pain since Monday. On admission, patient had shaking of his upper limbs, chest pain, abdominal pain, and L knee pain. Workup revealed negative troponins, normal BNP, and no leukocytosis. ECG showed sinus tachycardia. Imaging showed no evidence of DVT or PE. Haloperidol and doxepin were held, but restarted once adverse effect of medications was ruled out as cause for symptoms. Patient was treated with IV fluids for dehydration. For patient's left knee pain, he received Voltaren gel. For abdominal pain, patient received famotidine, pantoprazole, and Miralax. On discharge, patient should continue 17g Miralax PO daily and Voltaren gel administration PRN. #Cardiopulmonary symptoms - negative troponin, BNP 6 - ECG: sinus tachycardia - CXR: bilateral increased vascular markings, right lower lung patchy infiltrates, left-sided mild pleural effusion, and unchanged cardiomegaly - CTA negative for PE, pleural effusion, and cardiomegaly, but shows small basal atelectasis - duplex US negative for DVT - discontinue IV Ceftriaxone - negative blood cultures #Abdominal Pain - possibly d/t constipation - start Miralax 17 mg TID - start pepcid 20 mg PO BID - continue pantoprazole #Schizophrenia/Depression/Bipolar Disorder - concern for adverse effects of medication, possible serotonin syndrome - restart scheduled haloperidol and doxepin - continue aripiprazole, perphenazine, trazodone, oxcarbazepine - resume immediately after medication side effect is ruled out #HTN - 167/107 -> 124/100 - continue lisinopril, clonidine #HAIDER - ordered CPAP #GERD - continue pantoprazole, famotidine #Hypothyroidism - continue levothyroxine #Asthma - continue albuterol inhaler, ipratropium-albuterol inhaler, fluticasone- propionate inhaler #Diabetes - continue linagliptin
--- NOTE | 2025-02-05 14:30 | Discharge Summary ---
Date of Service February 05, 2025 Admission HPI Per Admitting Provider Guerrero Telles is a 44 yr M w/ PMHx of intellectual disability, HAIDER, HTN, and schizophrenia, presenting with new-onset shaking of limbs since Monday. This afternoon, the patient mentioned he didn't feel good but could not specify what was wrong. His mother reported increased SoB while walking through [employer], prompting the patient to stop walking multiple times to catch his breath. Patient also reports intermittent chest pain, dizziness, and abdominal pain. His mother mentions he has a hx of gagging episodes, which resolved in the past, but began again recently. There have been no changes to medication, no known sick contacts at home, and no changes to daily routine. Principal Diagnosis General: NAD, shaking limbs Skin: Minor scrapes on forehead and scalp HEENT: Normocephalic, atraumatic Cardiac: tachycardic, no murmurs or gallops Resp: Clear to auscultation Abdomen: Bowel sounds normal, no tenderness to palpation, no hepatosplenomegaly Psych: Baseline intellectual disability Discharge Exam General: NAD Skin: Minor scrapes on forehead and scalp HEENT: Normocephalic, atraumatic Cardiac: RRR, no murmurs or gallops Resp: Clear to auscultation Abdomen: Bowel sounds normal, no tenderness to palpation, no hepatosplenomegaly Musculoskeletal: Tenderness to palpation of L knee Psych: Baseline intellectual disability Discharge Data Allergies Allergy/AdvReac Type Severity Reaction Status Date / Time lactose Allergy Unknown Unknown Verified 01/23/25 11:03 pollen extracts Allergy Unknown Unknown Verified 01/23/25 11:03 Consultations 02/03/25 17:23 ED Decision to Admit Stat Ordered Studies 02/03/25 17:52 CT angio chest PE protocol Routine 02/04/25 09:08 US venous doppler LE Routine Hospital Course (1) Dizziness: (2) Shaking: (3) Tachycardia: (4) Hypertension: Plan Guerrero Telles is a 44 yr M w/ PMHx of intellectual disability, HAIDER, HTN, and schizophrenia, that presented with new-onset shaking of limbs, dyspnea, and chest pain since Monday. On admission, patient had shaking of his upper limbs, chest pain, abdominal pain, and L knee pain. Workup revealed negative troponins, normal BNP, and no leukocytosis. ECG showed sinus tachycardia. Imaging showed no evidence of DVT or PE. Haloperidol and doxepin were held, but restarted once adverse effect of medications was ruled out as cause for symp toms. Patient was treated with IV fluids for dehydration. For patient's left knee pain, he received Voltaren gel. For abdominal pain, patient received famotidine, pantoprazole, and Miralax. On discharge, patient should continue 17g Miralax PO daily and Voltaren gel administration PRN. #Cardiopulmonary symptoms - negative troponin, BNP 6 - ECG: sinus tachycardia - CXR: bilateral increased vascular markings, right lower lung patchy infiltrates, left-sided mild pleural effusion, and unchanged cardiomegaly - CTA negative for PE, pleural effusion, and cardiomegaly, but shows small basal atelectasis - duplex US negative for DVT - discontinue IV Ceftriaxone - negative blood cultures #Abdominal Pain - possibly d/t constipation - start Miralax 17 mg TID - start pepcid 20 mg PO BID - continue pantoprazole #Schizophrenia/Depression/Bipolar Disorder - concern for adverse effects of medication, possible serotonin syndrome - restart scheduled haloperidol and doxepin - continue aripiprazole, perphenazine, trazodone, oxcarbazepine - resume immediately after medication side effect is ruled out #HTN - 167/107 -> 124/100 - continue lisinopril, clonidine #HAIDER - ordered CPAP #GERD - continue pantoprazole, famotidine #Hypothyroidism - continue levothyroxine #Asthma - continue albuterol inhaler, ipratropium-albuterol inhaler, fluticasone- propionate inhaler #Diabetes - continue linagliptin Total Time Total Time Spent Total Time Spent (In Minutes): see attending attestation Discharge Plan Discharge Items Patient Disposition: Home - Self-Care Reason For Visit: TREMOR, HTN Discharge Diagnosis: Dehydration improved Condition on Discharge: Fair Activity: Resume your previous activity Non-emergency contact: Primary Care Provider Call non-emergency contact if: your symptoms worsen Follow-up/Referrals: Elijah Henderson MD [Primary Care Provider] - Diet: Regular Addtl Attending Provider Instructions: You were admitted to the hospital for increased heart rate and shaking due to dehydration and some anxiety component as well. You were treated with intravenous fluids, which improved your heart rate. We observed you for 2 days and all you blood work and vitals seems reassuring, hence we are sending you home. We recommend you to modify your diet to more fibres, more fluids so that you won't have constipation and at same time you will be taking miralax. We did ultrasound of your leg, which did not show any clots and pain seems muscular origin.F/u with PCP for continuation of care. A discharge summary will be sent to your primary care physician to ensure continuity of care. Please bring this discharge summary with you to your next office appointment so that your provider can review it at that time. Medications: Your medication list has been reviewed and reconciled upon discharge to ensure accuracy and continuity of care. An updated list of all your medications is included with your hospital discharge paperwork. Please review this list closely and make note of any changes to your medications. 1. Miralax 17 gm Once daily to continue. Follow up appointments: - Make a follow up appointment with your PCP within the next week. It is very important that you follow up with them shortly after discharge from the hospital. - Keep all of your follow up appointments as already scheduled. If you cannot make an appointment, notify your provider. CONTACT YOUR PRIMARY CARE PROVIDER if you experience any of the following: - Difficulty following your treatment plan - Difficulty taking any of your medications CALL 911 OR GO TO THE EMERGENCY DEPARTMENT if you experience any of the following: - Sudden, severe abdominal pain or nausea/vomiting - Severe chest pain or chest pain that radiates to your jaw or arm - Sudden, severe shortness of breath or difficulty breathing Pending Studies at Discharge: No Stand-Alone Forms: My [facility] [employer] Smoking Cessation Medications and DC Order Prescriptions: New polyethylene glycol 3350 [Miralax] 17 gram/dose powder 17 g PO DAILY PRN (Reason: constipation) 14 Days Qty: 238 0RF diclofenac sodium [Voltaren Arthritis Pain] 1 % gel 2 g topical QID Qty: 50 0RF Rx Instructions: apply to single elbow, wrist or hand; for hand includes palm/fingers/back of hand Continued acetaminophen 500 mg capsule 500 mg PO QID PRN (Reason: pain) Qty: 90 0RF polyethylene glycol 3350 [Miralax] 17 gram/dose powder 17 g PO DAILY PRN (Reason: Constipation) docusate sodium 100 mg capsule 100 mg PO BID Qty: 180 3RF pantoprazole 40 mg tablet,delayed release (DR/EC) 40 mg PO BID Qty: 180 3RF Tradjenta 5 mg tablet 5 mg PO DAILY Qty: 90 3RF lisinopril 10 mg tablet 10 mg PO QAM Qty: 90 3RF levothyroxine 112 mcg tablet 112 mcg PO DAILY Qty: 30 2RF Rx Instructions: Take first thing in the morning 30-45 minutes before any other oral intake. Take one tablet by mouth every other day for the first week every day thereafter. Saline Mist 0.65 % aerosol,spray 1 spray intranasal BID PRN (Reason: dry nasal passages) Qty: 45 1RF loratadine 10 mg tablet 10 mg PO DAILY PRN (Reason: Allergy Symptoms) Qty: 30 4RF oxcarbazepine 600 mg tablet 600 mg PO QAM Abilify Asimtufii 960 mg/3.2 mL suspension,extended rel syring 960 mg IM .ONCE EVERY 56 DAYS Rx Instructions: every 56 days clonidine HCl 0.3 mg tablet 0.3 mg PO HS clonidine HCl 0.1 mg tablet 0.1 mg PO QAM urea 10 % cream 1 applic topical DAILY Rx Instructions: APPLY TO BOTH FEET oxcarbazepine 300 mg tablet 900 mg PO HS (DME) blood glucose control, normal [OneTouch Verio Mid Control] Solution See Rx Instructions .Route Qty: 1 0RF Rx Instructions: As directed (DME) lancets [CareTouch Safety Lancets] 28 gauge misc See Rx Instructions .Route Qty: 100 0RF Rx Instructions: As directed doxepin 50 mg capsule 50 mg PO HS trazodone 150 mg tablet 300 mg PO HS Advair HFA 115-21 mcg/actuation HFA aerosol inhaler 2 puff inhalation BID Qty: 12 12RF albuterol sulfate 90 mcg/actuation HFA aerosol inhaler 2 puff inhalation Q4H PRN (Reason: SOB/ACUTE ASTHMA EXACERBATION) multivitamin [Daily-Tobias] Tablet 1 tab PO DAILY sucralfate [Carafate] 1 gram tablet 1 g PO AC Rx Instructions: 3 X A DAY BEFORE MEALS ipratropium-albuterol 0.5 mg-3 mg(2.5 mg base)/3 mL solution for nebulization 3 ml inhalation .EVERY 4-6 HOURS MDD UP TO 6 TIMES PER DAY PRN (Reason: Wheezing) perphenazine 8 mg tablet 8 mg PO QPM Rx Instructions: TAKE DAILY AT 8 PM latanoprost 0.005 % drops 1 drp OPB HS lactase 3,000 unit Tablet 6,000 unit PO TID PRN (Reason: DAIRY CONSUMPTION) Rx Instructions: administer with first bite of dairy food haloperidol 5 mg tablet 5 mg PO .DAILY AT NOON haloperidol 10 mg tablet 10 mg PO .DAILY AT 8PM haloperidol 2 mg tablet 2 mg PO .DAILY AT 8PM Rx Instructions: TAKE WITH 10MG DOSE haloperidol 2 mg tablet 2 mg PO DAILY PRN (Reason: ANGER AND AGGRESSION) famotidine 20 mg tablet 20 mg PO . NEEDED PRN (Reason: GERD) No Action (DME) OneTouch Verio test strips Strip See Rx Instructions .Route Qty: 25 2RF Rx Instructions: Test daily As directed Discharge Orders: Discharge Order (Routine); Ordered 02/05/25 Ordered By: Bebe Patel/Other Patient Handouts: Dehydration, Dehydration Rehydration Ch Admission Data Admit Date/Time: 02/03/25 17:30 Attending Provider: Jeff Saavedra Admit Provider: Mitra Castaneda Primary Care Provider: Elijah Henderson Other Providers: Jeff Saavedra Other Interventions: Discharge Summary Assessment (RN) Last Done: 02/05/25 13:11 Supervising Physician Co-Signing Physician Notes contact if he needs calming/reassurance is [facility] Staff - [phone] I personally examined the patient and verified all sotomayor points of history and exam, discussed case, and agree with decision making with Dr Tompkins and Veda Altamirano MS4 feels good overall except for knee pain. wants to go home. eating/drinking OK vitals noted walking in room nad heent nc at mmm abd mod distention but soft nt no guarding no rebound. mild patellar pain no joint effusion Tachycardia/feeling weakbroad ddx initially but HR responded nicely to fluids suggesting that it was related to dehydration - given that gagging seems to have resolved, poor PO intake may have been related to constipation. improved, PO intake stayed good, HR up and down more in line with agitation than distress. safe for home. Abdominal painmost likely nondescript and constipation mediated, seems to have resolved - monitor, continue bowel regimen knee pain - voltaren gel. nonspecific but most c/w patellar tendonitis and calf strain. DVT proph - SCDs and ambulation; safe for home
--- NOTE | 2025-02-05 19:26 | Billing Data ---
Date of Service February 05, 2025 Coding Level of Care Code 51278 IN/OBS DISCH 30 MIN/LESS
--- NOTE | 2025-02-05 19:26 | Billing Data ---
Date of Service February 05, 2025 Coding Level of Care Code 11982 IN/OBS DISCH 30 MIN/LESS
== END 2025-02-05 13:47 | disposition home or self-care (01) | DRG 641 ==
LOC: ED 15:26 → EDINP 17:30 → 2N 21:24